=== PATIENT | male | born 1960 | race Caucasian/White ===

== ENCOUNTER 2019-08-03 15:30 | Inpatient (IN) | payer OTHER ==
[2019-08-03 16:12] LABS: #Basophils 0.1 thou/uL (0.0-0.2); #Eosinphils 0.5 thou/uL (0.0-0.7); #Lymphocytes 1.8 thou/uL (1.20-3.40); #Monocytes 1.1 thou/uL (0.11-0.59); #Neutrophils 6.3 thou/uL (1.40-6.50); %Basophils 0.7 % (0.0-1.0); %Eosinophils 4.9 % (0.0-10.0); %Lymphocytes 18.6 % (21.0-51.0); %Monocytes 10.9 % (0.0-10.0); %Neutrophils 64.8 % (42.0-75.0); Hemoglobin 10.5 g/dL (14.0-18.0); Mean Corpuscular HGB CONC 34.5 g/dL (32.0-36.0); Mean Corpuscular Hemoglobin 33.5 pg (27.0-31.0); Mean Corpuscular Volume 97.2 fL (78.0-98.0); Mean Platelet Volume 7.1 fL (7.4-10.4); Platelet Count 283 thou/uL (130-400); RBC Distribution Width 12.4 % (11.5-14.5); Red Blood Cell (RBC) Count 3.13 mill/uL (4.70-6.10); White Blood Cell (WBC) Count 9.8 thou/uL (4.8-10.8)
[2019-08-03 16:30] LABS: ALT (SGPT) 13 U/L (8-55); AST (SGOT) 17 U/L (5-34); Albumin 3.1 g/dL (3.5-5.0); Alkaline Phosphatase 53 U/L (40-110); Anion Gap 11 mmol/L (10-20); BUN (Urea Nitrogen) 46 mg/dL (8.4-25.7); Bilirubin, Total 0.3 mg/dL (0.2-1.2); Calc. Creatinine Clearance 0 mL/min (70-130); Calcium 8.4 mg/dL (7.8-10.44); Carbon Dioxide 25 mmol/L (22-29); Chloride 108 mmol/L (98-107); Estimated GFR-MDRD 28; Globulin 2.8 g/dL (2.4-3.5); Glucose 128 mg/dL (70-105); Potassium 4.8 mmol/L (3.5-5.1); Protein, Total 5.9 g/dL (6.0-8.3); Sodium 139 mmol/L (136-145)
--- NOTE | 2019-08-03 18:21 | RAD ---
PORTABLE CHEST ONE VIEW: 08/03/19 at 5:06 p.m. HISTORY: Difficulty breathing. FINDINGS/IMPRESSION: There are no previous exams for comparison. The heart size is borderline. There are bilateral pleural effusions with adjacent consolidation/atelectatic changes. No pneumothoraces are seen. POS: OFF
--- NOTE | 2019-08-03 18:54 | PDOC.FPRHP ---
- History of Present Illness Chief Complaint: Increasing swelling& shorness of breath History of Present Illness: Mr. Mansfield is a 59yo M w/ a PMH of DMII, HTN, and HLD who presents to the ED for evaluation of increasing swelling and shortness of breath since "the first of the year". He believes about 5 months. He states that these symptoms came on gradually. He endorses cough, orthopnea, PND, and MARIE. He was seen by Dr. Israel today who recommended he come to the ED for more emergent evaluation. Dr. Israel started seeing him for fluid overload in June and diagnosed him with diabetic nephropathy vs CKD III. He has been taking Lasix 40mg po daily at home, and despite this his swelling has not improved significantly. He has diabetic retinopathy / swelling in the eye and sees optho (Dr. Lau) for Avastin inj q month. He denies history of NH, stress tests or imaging on his heart in the past. Started insulin for his diabetes in February. Checks BG daily and it is usually 120s in the afternoon and <90 in the morning. - Allergies/Adverse Reactions Allergies Allergy/AdvReac Type Severity Reaction Status Date / Time No Known Allergies Allergy Verified 08/03/19 21:07 - Home Medications Medication Instructions Recorded Confirmed Type Amlodipine [Norvasc] 10 mg PO DAILY 08/03/19 08/03/19 History Atorvastatin Calcium 40 mg PO HS 08/03/19 08/03/19 History Fenofibrate 150 mg PO DAILY 08/03/19 08/03/19 History Fluticasone Propionate [Flovent 50 mcg IH DAILY 08/03/19 08/03/19 History Diskus] Furosemide 40 mg PO BID 08/03/19 08/03/19 History Insulin Glargine,Hum.Rec.Anlog 25 unit SQ QAM 08/03/19 08/03/19 History [Basaglar Kwikpen U-100] Potassium Chloride [K-Dur] 20 meq PO DAILY 08/03/19 08/03/19 History cloNIDine [Catapres] 0.2 mg PO TID 08/03/19 08/03/19 History metFORMIN [Glucophage] 500 mg PO BID-WM 08/03/19 08/03/19 History - History PMHx: HTN HLD DM II Diabetic nephropathy Stage III Chronic renal failure PSHx: Cholecystectomy FHx: Dad, age 59 from NH Mother, healthy, has dementia Social: Former tobacco user - smoked cigars. Quit last year. Denies alcohol or drug use. - Review of Systems General: reports: fatigue. denies: fever/chills, weight/appetite/sleep changes , night sweats Eyes: denies: eye pain, vision changes ENT: denies: nasal congestion, rhinorrhea Respiratory: reports: cough, congestion, shortness of breath, exercise intolerance Cardiovascular: reports: edema, paroxysmal nocturnal dyspnea, orthopnea. denies : chest pain, palpitation Gastrointestinal: denies: nausea, vomiting, diarrhea, constipation, abdominal pain Genitourinary: denies: incontinence, dysuria, polyuria Skin: denies: rashes, lesions, jaundice Musculoskeletal: denies: pain, tenderness, stiffness, swelling Neurological: reports: weakness. denies: numbness, syncope, seizure - Vital signs BP: 166/102, Pulse: 84, Resp: 20, Temp: 98.4 (Oral), Pain: 0, O2 sat: 98 on (2L Oxygen), Weight 90kg - Physical Exam Constitutional: NAD, awake, alert and oriented, well developed -Constitutional: Visibly short of breath HEENT: normocephalic and atraumatic, PERRLA, EOMI, conjunctiva clear, grossly normal vision, grossly normal hearing, MMM Neck: supple, trachea midline Heart: RRR, normal S1/S2, no murmurs/rubs/gallops -Heart: 1+ pitting edema diffusely (upper and lower extremities) Lungs: CTAB, no respiratory distress, good air movement, no rales/rhonchi, no wheezing Abdomen: soft, non-tender Musculoskeletal: normal structure, normal tone Neurological: no focal deficit FMR H&P: Results - Labs Result Diagrams: 08/03/19 16:02 08/04/19 05:24 Lab results: WBC 9.8 thou/uL (4.8-10.8) 08/03/19 16:02 Hgb 10.5 g/dL (14.0-18.0) L 08/03/19 16:02 Hct 30.4 % (42.0-52.0) L 08/03/19 16: MCV 97.2 fL (78.0-98.0) 08/03/19 16:02 Plt Count 283 thou/uL (130-400) 08/03/19 16:02 Neutrophils % 64.8 % (42.0-75.0) 08/03/19 16:02 Sodium 139 mmol/L (136-145) 08/03/19 16:02 Potassium 4.8 mmol/L (3.5-5.1) 08/03/19 16:02 Chloride 108 mmol/L (98-107) H 08/03/19 16:02 Carbon Dioxide 25 mmol/L (22-29) 08/03/19 16:02 BUN 46 mg/dL (8.4-25.7) H 08/03/19 16:02 Creatinine 2.42 mg/dL (0.7-1.3) H 08/03/19 16:02 Glucose 128 mg/dL (70-105) H 08/03/19 16:02 Calcium 8.4 mg/dL (7.8-10.44) 08/03/19 16:02 Total Bilirubin 0.3 mg/dL (0.2-1.2) 08/03/19 16:02 AST 17 U/L (5-34) 08/03/19 16:02 ALT 13 U/L (8-55) 08/03/19 16:02 Alkaline Phosphatase 53 U/L (40-110) 08/03/19 16:02 CK-MB (CK-2) 2.0 ng/mL (0-6.6) 08/03/19 16:02 B-Natriuretic Peptide 1049.1 pg/mL (0-100) H 08/03/19 16:02 Serum Total Protein 5.9 g/dL (6.0-8.3) L 08/03/19 16:02 Albumin 3.1 g/dL (3.5-5.0) L 08/03/19 16:02 - Radiology Interpretation Chest x-ray Status: report reviewed by me (There are no previous exams for comparison. The heart size is borderline. There are bilateral pleural effusions with adjacent consolidation/atelectatic changes. No pneumothoraces are seen.) FMR H&P: A/P - Problem List (1) Anasarca Current Visit: Yes Status: Acute Code(s): R60.1 - GENERALIZED EDEMA (2) Chronic kidney disease Current Visit: Yes Status: Chronic Code(s): N18.9 - CHRONIC KIDNEY DISEASE, UNSPECIFIED (3) Diabetic retinopathy Current Visit: Yes Status: Chronic Code(s): E11.319 - TYPE 2 DIABETES W UNSP DIABETIC RTNOP W/O MACULAR EDEMA (4) Diabetic nephropathy Current Visit: Yes Status: Chronic (5) Diabetes mellitus, type 2 Current Visit: Yes Status: Chronic (6) HTN (hypertension) Current Visit: Yes Status: Chronic Code(s): I10 - ESSENTIAL (PRIMARY) HYPERTENSION (7) HLD (hyperlipidemia) Current Visit: Yes Status: Chronic Code(s): E78.5 - HYPERLIPIDEMIA, UNSPECIFIED - Plan Anasarca, CKD III vs new onset CHF - BNP > 1000. Cr 2.42, uptrending over the last several months. - Trop 0.079 - ECHO ordered. - Strict I/O - Dr. Israel sent patient from clinic, consulted. Recommended 80mg IV Lasix BID and Albumin 25 q6h - Will monitor fluid status. DM II - Continue home insulin dose with sliding scale - A1c pending HTN - Continue home medication HLD - Continue home medications COVID PUI - Due to cough and shortness of breath swab obtained. - Symptoms likely more attributable to fluid status Anemia - Hb 10.2 - Iron studies, B12 and Folate ordered. Dispo: Stable, inpatient. Anticipate LOS > 48 hours for full work up and diuresis. Code: Full VTE: Heparin FMR H&P: Upper Level - Plan Date/Time: 08/03/19 1850 PCP: Abraham HPI: This is a 59 yo M who is being evaluated for fluid overload 2/2 CKDIII vs CHF. He has PMH including DM2, HTN, HLD. He was seeing Dr. Israel in clinic today and was sent to ER for treatment of the fluid overload. Patient states he has had increasing swelling since about February. Decreased exercise tolerance. Gets short of breath when laying down. He denies fever, although he did have a fever when they tested him in his hot car at the clinic. No documented fevers since that time. He complains of congestion on and off for a few month. Uses Flonase. PHYSICAL EXAMINATION: General: NAD, alert and oriented x3 HEENT: PERRLA, EOMI, normal sclera, oropharynx without erythema or exudate Neck: Supple. Full ROM. Heart/Cardiovascular System: RRR, Cap refill < 3 seconds, no rub, no murmur Lungs/Respiratory System: mild decreased breath sounds at bases, no resp distress Abdomen/Gastro-Intestinal System: no abdominal tenderness, normal bowel sounds Extremities: Warm extremities. +2 edema to the knees Neuro: No gross deficits appreciated. CN 2-12 grossly intact Psychiatry: Awake, Alert and cooperative with exam Skin: No lesions, rashes, or ulcers Musculoskeletal: Full ROM A/P: # Fluid overload CKDIII vs New onset CHF -Dr. Israel consulted, 80mg Lasix IV BID, Albumin, appreciate recs -Cr 2.42, BNP 1050 -Trop 0.079-> 0.098, suspect demand -Echo ordered -Strict I/O -Start HF medications as indicated once diuresis achieved # DM2, HTN, HLD -Home meds, A1C # COVID PUI -Low suspicion, COVID pending # Anemia - hgb 10.2, MCV 98, - iron studies, B12, folate - likely 2/2 CKD but will eval Fluids: tko Code: full PPx: heparin Dispo: inpatient Addendum - Attending - Attending Attestation Date/Time: 08/04/19 1123 I personally evaluated the patient and discussed the management with Dr. Day and Mauricio. I agree with the History, Examination, Assessment and Plan documented above with any addition or exceptions noted below.
[2019-08-03] MEDS ORDERED: HumaLOG 300 UNITS/3 ML VIAL SC PRN (19:49)
[2019-08-03] MEDS ORDERED: Dextrose 5% in Water 1,000 ML IV PRN (19:49)
[2019-08-03] MEDS ORDERED: Acetaminophen 325 MG TAB PO PRN (19:49)
[2019-08-03] MEDS ORDERED: Dextrose 50% Abboject 50 ML SYRINGE SLOW IVP PRN (19:49)
[2019-08-03] MEDS ORDERED: Albumin 25% 25 GM/100 ML BOT IVPB SCH (20:00)
[2019-08-03 20:14] LABS: Troponin I 0.098 ng/mL (< 0.028)
[2019-08-03] MEDS ORDERED: Furosemide 100 MG/10 ML VIAL SLOW IVP SCH (22:30)
[2019-08-03 22:40] LABS: Troponin I 0.089 ng/mL (< 0.028)
[2019-08-03] MEDS ORDERED: cloNIDine 0.2 MG TAB PO SCH (22:45)
[2019-08-03] MEDS ORDERED: metFORMIN 500 MG TAB PO SCH (22:45)
[2019-08-03] MEDS ORDERED: Atorvastatin Calcium 40 MG TAB PO SCH (22:45)
[2019-08-03] MEDS: Heparin 5,000 UNITS/ML VIAL SC SCH (22:53)
[2019-08-04 05:53] LABS: Anion Gap 11 mmol/L (10-20); BUN (Urea Nitrogen) 45 mg/dL (8.4-25.7); Calc. Creatinine Clearance 39 mL/min (70-130); Calcium 8.2 mg/dL (7.8-10.44); Carbon Dioxide 23 mmol/L (22-29); Chloride 108 mmol/L (98-107); Estimated GFR-MDRD 29; Glucose 120 mg/dL (70-105); Potassium 4.3 mmol/L (3.5-5.1); Sodium 138 mmol/L (136-145)
[2019-08-04] MEDS ORDERED: Furosemide 40 MG/4 ML VIAL SLOW IVP SCH (06:00)
[2019-08-04] MEDS: Albumin 25% 25 GM/100 ML BOT IVPB SCH ×4 (06:02→21:32)
[2019-08-04] MEDS: Furosemide 100 MG/10 ML VIAL SLOW IVP SCH ×2 (06:03→14:03)
[2019-08-04 06:12] LABS: Iron 47 ug/dL (65-175); Iron Binding Capacity, Total 246 mcg/dL (261-462); Phosphorus 4.2 mg/dL (2.3-4.7); Transferrin, Serum 197 mg/dL (174-364)
[2019-08-04 06:20] LABS: Ferritin 229.37 ng/mL (22-322)
--- NOTE | 2019-08-04 06:29 | PDOC.FM ---
- Subjective Subjective: Patient had no complaints this morning. He is voiding well. He reports his SOB is improved. He also reports the swelling in his upper legs has gone down. - Objective Vital Signs & Weight: Vital Signs (12 hours) Temp Pulse Resp BP BP Pulse Ox 08/04/19 03:55 96.4 F L 80 18 177/97 H 95 08/03/19 23:30 97.9 F 89 20 189/94 H 94 L 08/03/19 21:30 98.4 F 89 18 193/104 H 93 L 08/03/19 20:57 98.9 F 85 16 188/97 H 95 Weight Weight 94.211 kg Result Diagrams: 08/03/19 16:02 08/04/19 05:24 Phys Exam - Physical Examination Constitutional: NAD Respiratory: no wheezing, clear to auscultation bilateral Cardiovascular: RRR, no significant murmur Gastrointestinal: soft, non-tender 3+ pitting edema BLE up to kenes Neurological: non-focal, moves all 4 limbs Psychiatric: normal affect, A&O x 3 Skin: no rash, normal turgor Dx/Plan (1) Anasarca Code(s): R60.1 - GENERALIZED EDEMA Status: Acute (2) Chronic kidney disease Code(s): N18.9 - CHRONIC KIDNEY DISEASE, UNSPECIFIED Status: Chronic (3) Diabetes mellitus, type 2 Status: Chronic (4) Diabetic nephropathy Status: Chronic (5) Diabetic retinopathy Code(s): E11.319 - TYPE 2 DIABETES W UNSP DIABETIC RTNOP W/O MACULAR EDEMA Status: Chronic (6) HLD (hyperlipidemia) Code(s): E78.5 - HYPERLIPIDEMIA, UNSPECIFIED Status: Chronic (7) HTN (hypertension) Code(s): I10 - ESSENTIAL (PRIMARY) HYPERTENSION Status: Chronic (8) Person under investigation for COVID-19 Code(s): Z20.828 - CONTACT W AND EXPOSURE TO OTH VIRAL COMMUNICABLE DISEASES Status: Acute - Plan Plan: Anasarca Nephrotic syndrome CKD III Diabetic nephropathy - Strict I/Os and daily weights ordered - Dr. Israel, consulted, appreciate recs. Recommended 80mg IV Lasix BID and Albumin 25 q6h - Will monitor fluid status. Possible new onset CHF - BNP > 1000. Cr 2.42, uptrending over the last several months. - Trop downtrended - ECHO pending DM II - Continue home insulin dose with sliding scale - A1c 7.0 HTN - Continue home medication - PRN hydralazine for SBP >180 HLD - Continue home medications COVID PUI - Due to cough and shortness of breath swab obtained; pt also reportedly had fever at Dr. Israel's office when his forehead temperature was checked in a hot vehicle - Symptoms likely more attributable to fluid status Iron deficiency Anemia - Hb 10.2 - Iron showed low Fe, replacing today - B12 and Folate ordered. Dispo: Stable, inpatient. Anticipate LOS > 48 hours. Code: Full VTE: Heparin PCP: Abraham Day PGY2 Addendum - Attending - Attending Attestation Date/Time: 08/04/19 8630 I personally evaluated the patient and discussed the management with Dr. Day. I agree with the History, Examination, Assessment and Plan documented above with any addition or exceptions noted below. Patient feeling somewhat improved. Here for likely anasarca from nephrotic syndrome from diabetic nephropathy. Nephro on board. Continue albumin and Lasix. Echo pending. COVID swabbed and awaiting result though have very low suspicion for that diagnosis.
[2019-08-04] MEDS ORDERED: Mometasone 100 MCG/PUFF (1 INHALER) INH SCH (06:30)
[2019-08-04] MEDS: Heparin 5,000 UNITS/ML VIAL SC SCH ×3 (07:50→21:31)
[2019-08-04] MEDS: cloNIDine 0.2 MG TAB PO SCH ×3 (07:51→21:33)
[2019-08-04] MEDS: Fenofibrate Nanocrystallized 145 MG TAB PO SCH (07:51)
[2019-08-04] MEDS: Potassium Chloride 20 MEQ TAB PO SCH (07:51)
[2019-08-04] MEDS: Insulin Glargine 25 UNITS in Pre-Filled Syringe 1 EACH SC SCH (07:51)
[2019-08-04] MEDS: metFORMIN 500 MG TAB PO SCH ×2 (07:51→18:05)
[2019-08-04] MEDS: Amlodipine 10 MG TAB PO SCH (07:51)
[2019-08-04] MEDS ORDERED: Prevnar 13-Val Conj/PF 0.5 ML SYRINGE IM ONE (09:00)
[2019-08-04] MEDS ORDERED: Non-Formulary Item 1 EACH (Insulin Glargine,Hum.Rec.Anlog [Basaglar Kwikpen U-100] 25 UNI SQ SCH (09:00)
[2019-08-04] MEDS ORDERED: hydrALAZINE 20 MG/ML VIAL SLOW IVP PRN ×2 (09:06→17:13)
[2019-08-04] MEDS ORDERED: Ferrous Sulfate 325 MG TAB PO SCH (09:15)
--- NOTE | 2019-08-04 10:18 | CON ---
DATE OF CONSULTATION: HISTORY OF PRESENT ILLNESS: Mr. Mansfield is a 59-year-old white male with known history of chronic renal failure secondary to presumed diabetic nephropathy and was admitted for shortness of breath. He was yesterday seen at [facility]. At that time, he had a low-grade temperature. He is now admitted for further management of his CHF as well as low-grade fever. Chest x-ray is more suggestive of CHF. We are following up this patient for his acute kidney injury on top of his chronic renal failure as well as for anasarca. My feeling is that his anasarca is related to his nephrotic syndrome from his diabetic nephropathy. He is currently on IV diuretics as well as on an albumin infusion. He was seen in the [facility] about 2 to 3 weeks ago, at that time, he was attempted to be diuresed with p.o. diuretics. However, these did not significantly improve his anasarca and for that reason, he has been started on IV Lasix with albumin infusion. This morning, he is feeling better. His leg edema is much improved. His shortness of breath is also dramatically improved. REVIEW OF SYSTEMS: Positive for generalized edema. Positive for shortness of breath. Denies any fever at home, but had a low-grade temperature on exam yesterday. Appetite and energy levels are decreased. No nausea. No vomiting. No headache. No diplopia. No gross hematuria. No dysuria. No urinary frequency. No productive cough. Denies any home fever. No chills. No dysuria. No urinary frequency. CURRENT MEDICATIONS: Include; 1. Lasix 80 mg IV q.12. 2. Albumin 25 g IV q.6. 3. KCl 20 mEq q.a.m. 4. Glargine insulin 25 units subcu q.a.m. 5. Humalog sliding scale. 6. Ferrous sulfate 325 mg q.a.m. 7. Atorvastatin 40 mg at bedtime. 8. Albumin 25 g IV q.6. PAST MEDICAL HISTORY: 1. Type 2 diabetes mellitus of 20 plus years' duration. 2. Chronic renal failure from presumed diabetic nephropathy. 3. Hyperlipidemia. 4. Hypertension. 5. Recent diagnosis of anasarca. PAST SURGICAL HISTORY: Status post laparoscopic cholecystectomy. SOCIAL HISTORY: The patient lives in [place], 2 children. He is . 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 Education, high school. Smoked for 20 years, one cigar a day. No alcohol. No IV drug abuse. No blood transfusion. ALLERGIES: NONE. TRAUMA: None. IMMUNIZATIONS: Up-to-date. HOSPITALIZATIONS: Please see past medical history. FAMILY HISTORY: No family history of ESRD. Positive family history of diabetes mellitus. PHYSICAL EXAMINATION: VITAL SIGNS: Blood pressure 197/112, heart rate 84, respiratory rate 18, temperature 97.7, and O2 saturation 96%. GENERAL: The patient is awake, alert, comfortable, not in overt distress. SKIN: Adequate turgor. HEENT: He has pinkish conjunctivae. Anicteric sclerae. NECK: No neck mass. No carotid bruits. No JVD. CHEST: No deformities. LUNGS: Clear breath sounds. HEART: Normal sinus rhythm. No murmur. No gallops. No rubs. ABDOMEN: Globular, soft, and nontender. No masses. EXTREMITIES: Positive for edema. GENITALIA: Positive for scrotal edema. LABORATORY DATA: Laboratories of August 03, 2019; white count 9.8, hemoglobin 10.5. On August 04, 2019; sodium 138, potassium 4.3, chloride 108, carbon dioxide 23, BUN 45, creatinine 2.3, glucose 120, calcium 8.2. Iron 47, ferritin 229, vitamin B12 of 843, folate 9.9. On August 03, 2019; BUN 46, creatinine 2.42. On July 29, 2019; BUN 44, creatinine 2.73. BNP noted at 1049. Chest x-ray shows increased lung markings with bilateral pleural effusion. ASSESSMENT AND PLAN: 1. Anasarca - related to his nephrotic syndrome from diabetic nephropathy. We will at least also rule out possible hepatitis B and C with this patient. MERRILL as well as ANCA will also be ordered. In addition, a urine serum immunoelectrophoresis will also be ordered. 2. Agree with current IV diuretics. Continue Lasix 80 mg IV q.12. Continue albumin infusion at 25 g IV q.6. 3. Chronic renal failure secondary to diabetic nephropathy. There is no indication for any emergent hemodialysis. Renal function is relatively stable. Agree with current management. Recheck basic metabolic panel and CBC in a.m. Job ID: [id number]
[2019-08-04 14:02] LABS: SARS-CoV-2 MS2 Positive; SARS-CoV-2 N Gene Negative; SARS-CoV-2 S Gene Negative; SARS-CoV-2 orf1ab Negative
[2019-08-04] MEDS: HumaLOG 300 UNITS/3 ML VIAL SC PRN (18:11)
[2019-08-04] MEDS: Atorvastatin Calcium 40 MG TAB PO SCH (21:31)
[2019-08-05 05:31] LABS: #Basophils 0.1 thou/uL (0.0-0.2); #Eosinphils 0.4 thou/uL (0.0-0.7); #Lymphocytes 1.6 thou/uL (1.20-3.40); #Monocytes 0.7 thou/uL (0.11-0.59); #Neutrophils 4.6 thou/uL (1.40-6.50); %Basophils 0.8 % (0.0-1.0); %Eosinophils 5.1 % (0.0-10.0); %Lymphocytes 21.6 % (21.0-51.0); %Monocytes 9.2 % (0.0-10.0); %Neutrophils 63.3 % (42.0-75.0); Hemoglobin 9.7 g/dL (14.0-18.0); Mean Corpuscular HGB CONC 34.3 g/dL (32.0-36.0); Mean Corpuscular Hemoglobin 33.1 pg (27.0-31.0); Mean Corpuscular Volume 96.4 fL (78.0-98.0); Mean Platelet Volume 7.5 fL (7.4-10.4); Platelet Count 279 thou/uL (130-400); RBC Distribution Width 12.4 % (11.5-14.5); Red Blood Cell (RBC) Count 2.93 mill/uL (4.70-6.10); White Blood Cell (WBC) Count 7.2 thou/uL (4.8-10.8)
[2019-08-05] MEDS: Furosemide 100 MG/10 ML VIAL SLOW IVP SCH ×2 (05:32→14:10)
[2019-08-05] MEDS: Albumin 25% 25 GM/100 ML BOT IVPB SCH ×4 (05:32→20:42)
[2019-08-05 05:56] LABS: Anion Gap 13 mmol/L (10-20); BUN (Urea Nitrogen) 50 mg/dL (8.4-25.7); Calc. Creatinine Clearance 41 mL/min (70-130); Carbon Dioxide 26 mmol/L (22-29); Chloride 105 mmol/L (98-107); Estimated GFR-MDRD 26; Glucose 89 mg/dL (70-105); Potassium 4.1 mmol/L (3.5-5.1); Sodium 140 mmol/L (136-145)
[2019-08-05 06:10] LABS: HBSAg Index 0.16 S/CO (0-0.99); Hep B Surf Ag Non-Reactive S/CO (NonReactive); Hep C IgG Ab Non-Reactive (NonReactive); Hep C Index 0.14 S/CO (0-0.79)
--- NOTE | 2019-08-05 06:36 | PDOC.FM ---
- Subjective Subjective: Patient states he had some SOB on and off overnight, he has been voiding well. He reports his swelling is improved. He is on 2 L BNC this morning. He denies chest pain or palpitations. No other complaints this AM. No acute events overnight. NSR 70-80s overnight. - Objective Vital Signs & Weight: Vital Signs (12 hours) Temp Pulse Resp BP Pulse Ox 08/05/19 03:19 97.5 F L 81 18 173/95 H 92 L 08/04/19 21:25 98.3 F 84 18 162/93 H 92 L Weight Admit Weight 78.925 kg Weight 93.395 kg I&O: 08/03/19 08/04/19 08/05/19 06:59 06:59 06:59 Intake Total 590 1540 Output Total 1450 2825 Balance -860 -1285 Result Diagrams: 08/05/19 04:47 08/05/19 04:47 Phys Exam - Physical Examination Constitutional: NAD Diminished breath sounds bases bilateral, otherwise clear to auscultation Cardiovascular: RRR, no significant murmur Gastrointestinal: soft, non-tender Edema 2+ BUE, 2+ BLE Neurological: non-focal, moves all 4 limbs Psychiatric: normal affect, A&O x 3 Skin: no rash, cap refill <2 seconds Dx/Plan (1) Anasarca Code(s): R60.1 - GENERALIZED EDEMA Status: Acute (2) Chronic kidney disease Code(s): N18.9 - CHRONIC KIDNEY DISEASE, UNSPECIFIED Status: Chronic (3) Diabetes mellitus, type 2 Status: Chronic (4) Diabetic nephropathy Status: Chronic (5) Diabetic retinopathy Code(s): E11.319 - TYPE 2 DIABETES W UNSP DIABETIC RTNOP W/O MACULAR EDEMA Status: Chronic (6) HLD (hyperlipidemia) Code(s): E78.5 - HYPERLIPIDEMIA, UNSPECIFIED Status: Chronic (7) HTN (hypertension) Code(s): I10 - ESSENTIAL (PRIMARY) HYPERTENSION Status: Chronic (8) Person under investigation for COVID-19 Code(s): Z20.828 - CONTACT W AND EXPOSURE TO OTH VIRAL COMMUNICABLE DISEASES Status: Acute - Plan Plan: Anasarca 2/2 Nephrotic syndrome/Diabetic nephropathy, improved CKD3 - Creatinine trending upwards - Output -1.25 L yesterday, not all output caught - Dr. Israel, consulted -Recommended 80mg IV Lasix BID and Albumin 25 q6h -Hep B & C, ANCA and MERRILL ordered along with electrophoresis - Continue to diurese. Possible new onset CHF - ECHO still pending DM II - Continue home insulin dose with sliding scale - A1c 7.0 HTN - Continue home medication - PRN hydralazine for SBP >180 HLD - Continue home medications COVID ruled out Iron deficiency Anemia - Continue Fe replacement Dispo: Stable, inpatient. Anticipate LOS > 48 hours. Appreciate nephrology recommendations. Code: Full VTE: Heparin PCP: Abraham Day PGY2 Addendum - Attending - Attending Attestation Date/Time: 08/05/19 1213 I personally evaluated the patient and discussed the management with Dr. Jordi Day. I agree with the History, Examination, Assessment and Plan documented above with any addition or exceptions noted below. Patient stable, continue diuresis and monitoring of renal function. Nephro on board and awaiting further recs.
[2019-08-05] MEDS: Insulin Glargine 25 UNITS in Pre-Filled Syringe 1 EACH SC SCH (08:30)
[2019-08-05] MEDS: Ferrous Sulfate 325 MG TAB PO SCH (08:33)
[2019-08-05] MEDS: cloNIDine 0.2 MG TAB PO SCH ×3 (08:33→20:42)
[2019-08-05] MEDS: metFORMIN 500 MG TAB PO SCH ×2 (08:33→17:36)
[2019-08-05] MEDS: Potassium Chloride 20 MEQ TAB PO SCH (08:33)
[2019-08-05] MEDS: Amlodipine 10 MG TAB PO SCH (08:33)
[2019-08-05] MEDS: Fenofibrate Nanocrystallized 145 MG TAB PO SCH (08:34)
[2019-08-05] MEDS: Heparin 5,000 UNITS/ML VIAL SC SCH ×3 (08:34→20:42)
--- NOTE | 2019-08-05 09:08 | PRG ---
DATE OF SERVICE: 08/05/2019 SUBJECTIVE: Mr. Mansfield is a 59-year-old white male, who was admitted for anasarca/CHF. He has been started on diuretics as well as an albumin infusion. We are following up this patient for his chronic renal failure from diabetic nephropathy. He has a history of nephrotic syndrome secondary to a most likely diabetic nephropathy. Other etiologies are also being ruled out. He had some mild shortness of breath last night. This morning, he is feeling better. No chest pain or shortness of breath. OBJECTIVE: VITAL SIGNS: Blood pressure is 187/102-before BP medications, heart rate 86, respiratory rate 20, temperature 97.7, and O2 saturation is 93%. GENERAL: Noted to be awake, alert, comfortable, not in distress. SKIN: Adequate turgor. HEENT: Pinkish conjunctivae. Anicteric sclerae. No neck mass. No carotid bruits. No JVD. CHEST: No deformities. LUNGS: Decreased breath sounds. HEART: Normal sinus rhythm. No murmur. No gallops. No rubs. ABDOMEN: Globular, soft, nontender. No masses. Positive for mild ascites. EXTREMITIES: Trace edema. MEDICATIONS: Medications of August 05, 2019, reviewed. LABORATORY DATA: Laboratories of August 05, 2019: White count 7.2, hemoglobin 9.7, hematocrit 28.3, and platelet count 279,000. Sodium 140, potassium 4.1, chloride 105, carbon dioxide 26, BUN 50, creatinine 2.54, GFR 26 mL/min, calcium 9.0. COVID not detected. Hepatitis B surface antigen negative. Hepatitis C antibody negative. MERRILL, ANCA, immunoelectrophoresis are still currently pending. ASSESSMENT AND PLAN: 1. Chronic renal failure from diabetic nephropathy. Creatinine noted higher at 2.54 and yesterday, this was 2.3. This could be a reflection of the current diuretic regimen. My plan is simply to observe it. We will leave the current dose of Lasix at 80 mg IV q.12. I will continue the albumin infusion to protect the kidney and to enhance his diuresis. The patient still has some significant volume overload. 2. Anasarca/nephrotic syndrome. Continue IV Lasix 80 mg IV q.12. Continue to monitor renal function. 3. Please note, there is no indication for any dialytic intervention with this patient. He does have a mild anemia, which we will continue to observe. CBC and basic metabolics will be checked tomorrow. Continue albumin 25 g IV q.6. Job ID: [id number]
[2019-08-05] MEDS: Fluticasone Propionate Nasal Spray 16 gm Bottle NASAL SCH (11:47)
[2019-08-05] MEDS ORDERED: hydrOXYzine 25 MG TAB PO SCH (14:00)
[2019-08-05] MEDS ORDERED: hydrALAZINE 20 MG/ML VIAL SLOW IVP SCH (14:00)
[2019-08-05 14:25] LABS: Troponin I 0.055 ng/mL (< 0.028)
[2019-08-05] MEDS ORDERED: Metolazone 5 MG TAB PO SCH (14:30)
--- NOTE | 2019-08-05 14:55 | PDOC.BPN ---
- Brief Progress Note While nurse was trying to wean O2 today around 1300, patient reported SOB. Went to bedside, patient was sitting up leaning over. Reported upper abdominal pressure, and SOB that worsened with lying back in bed. Cardiac: RRR, no murmur. Lungs: BCTA with decreased breath sounds at the bases. Trop, EKG, and CXR ordered. CXR revealed increased pulmonary vascular congestion. EKG NSR with non specific ST changes. Spoke with Dr. Israel about fluid overload. Patient was given previously scheduled lasix at 1400. Next dose of albumin to be held. Adding a 1x dose of metolazone 5 mg. Patient was given hydralazine for SBP >180 and hydroxyzine for anxiety. Will continue to monitor.
--- NOTE | 2019-08-05 15:11 | RAD ---
PORTABLE CHEST: 08/05/19 HISTORY: Dyspnea. COMPARISON: 08/03/19. Poor inspiration. Vascular and interstitial prominence bilaterally. Hazy ground glass infiltrates in both lower lungs could represent edema or inflammatory process. There are bilateral effusions again n oted which would produce bibasilar atelectasis. IMPRESSION: Vascular and interstitial congestion appears slightly more prominent today. There are bibasilar infil trates and atelectasis again noted with bilateral effusions. POS: AH
--- NOTE | 2019-08-05 15:53 | EKG ---
Test Reason : Blood Pressure : / mmHG Vent. Rate : 098 BPM Atrial Rate : 098 BPM P-R Int : 174 ms QRS Dur : 090 ms QT Int : 384 ms P-R-T Axes : 061 058 252 degrees QTc Int : 490 ms Normal sinus rhythm Nonspecific T wave abnormality Prolonged QT Abnormal ECG Confirmed by ALEXANDER FRANCES ([id number]) on 08/05/2019 3:52:39 PM Referred By: JEAN *r Confirmed By:ALEXANDER FRANCES
[2019-08-05] MEDS: Atorvastatin Calcium 40 MG TAB PO SCH (20:42)
[2019-08-06] MEDS: Albumin 25% 25 GM/100 ML BOT IVPB SCH (03:49)
[2019-08-06 04:47] LABS: #Basophils 0.1 thou/uL (0.0-0.2); #Eosinphils 0.3 thou/uL (0.0-0.7); #Lymphocytes 1.4 thou/uL (1.20-3.40); #Monocytes 0.8 thou/uL (0.11-0.59); #Neutrophils 4.4 thou/uL (1.40-6.50); %Basophils 0.9 % (0.0-1.0); %Eosinophils 3.8 % (0.0-10.0); %Lymphocytes 19.7 % (21.0-51.0); %Monocytes 11.5 % (0.0-10.0); %Neutrophils 64.1 % (42.0-75.0); Hemoglobin 9.8 g/dL (14.0-18.0); Mean Corpuscular HGB CONC 33.2 g/dL (32.0-36.0); Mean Corpuscular Volume 96.4 fL (78.0-98.0); Mean Platelet Volume 7.5 fL (7.4-10.4); Platelet Count 269 thou/uL (130-400); RBC Distribution Width 12.5 % (11.5-14.5); Red Blood Cell (RBC) Count 3.07 mill/uL (4.70-6.10); White Blood Cell (WBC) Count 6.9 thou/uL (4.8-10.8)
[2019-08-06 04:56] LABS: Anion Gap 13 mmol/L (10-20); BUN (Urea Nitrogen) 48 mg/dL (8.4-25.7); Calc. Creatinine Clearance 38 mL/min (70-130); Calcium 9.1 mg/dL (7.8-10.44); Carbon Dioxide 26 mmol/L (22-29); Chloride 105 mmol/L (98-107); Estimated GFR-MDRD 24; Glucose 65 mg/dL (70-105); Potassium 3.8 mmol/L (3.5-5.1); Sodium 140 mmol/L (136-145)
[2019-08-06] MEDS: Furosemide 100 MG/10 ML VIAL SLOW IVP SCH (05:47)
--- NOTE | 2019-08-06 06:55 | PDOC.FM ---
- Subjective Subjective: Patient is resting comfortable in bed this morning. He reports his SOB is much improved. We held one dose of albumin yesterday, and he refused his next dose of albumin. He denies chest pain. - Objective Vital Signs & Weight: Vital Signs (12 hours) Temp Pulse Resp BP Pulse Ox 08/06/19 04:19 98.1 F 87 18 176/95 H 94 L 08/05/19 19:40 98.0 F 87 18 173/94 H 94 L Weight Admit Weight 78.925 kg Weight 90.832 kg I&O: 08/04/19 08/05/19 08/06/19 06:59 06:59 06:59 Intake Total 590 1540 1000 Output Total 1450 2825 1550 Balance -860 -9343 -550 Result Diagrams: 08/06/19 04:17 08/06/19 04:17 Phys Exam - Physical Examination Constitutional: NAD Respiratory: no rhonchi crackles LLL, Clear to auscultation on right lung; no wheezing Cardiovascular: RRR, no significant murmur Gastrointestinal: soft, non-tender, positive bowel sounds 2+ edema BLE, 1+ BUE. Improved Neurological: non-focal, moves all 4 limbs Psychiatric: normal affect Skin: no rash, cap refill <2 seconds Dx/Plan (1) Anasarca Code(s): R60.1 - GENERALIZED EDEMA Status: Acute (2) Chronic kidney disease Code(s): N18.9 - CHRONIC KIDNEY DISEASE, UNSPECIFIED Status: Chronic (3) Diabetes mellitus, type 2 Status: Chronic (4) Diabetic nephropathy Status: Chronic (5) Diabetic retinopathy Code(s): E11.319 - TYPE 2 DIABETES W UNSP DIABETIC RTNOP W/O MACULAR EDEMA Status: Chronic (6) HLD (hyperlipidemia) Code(s): E78.5 - HYPERLIPIDEMIA, UNSPECIFIED Status: Chronic (7) HTN (hypertension) Code(s): I10 - ESSENTIAL (PRIMARY) HYPERTENSION Status: Chronic (8) Person under investigation for COVID-19 Code(s): Z20.828 - CONTACT W AND EXPOSURE TO OTH VIRAL COMMUNICABLE DISEASES Status: Acute (9) Heart failure Code(s): I50.9 - HEART FAILURE, UNSPECIFIED Status: Acute - Plan Plan: New onset CHF - ECHO- EF 30-35%, Grade 2/3 diastolic dysfunction - Consult cardiology today, appreciate recommendations - Heart failure clinic - Start BB Anasarca 2/2 Nephrotic syndrome/Diabetic nephropathy CKD3 - Creatinine continues to trend upwards - Dr. Israel, consulted -Recommended 80mg IV Lasix BID and Albumin 25 q6h -Hep B & C, ANCA and MERRILL ordered along with electrophoresis - Yesterday gave 1 dose metolazone and held albumin x1 (patient refused dose x1 afterwards) due to fluid overload DM II - Continue home insulin dose with sliding scale - A1c 7.0 HTN - Continue home medication - Start BB - PRN hydralazine for SBP >180 HLD - Continue home medications COVID ruled out Iron deficiency Anemia - Continue Fe replacement Dispo: Stable, inpatient. Anticipate LOS > 48 hours. Appreciate nephrology and cardiology recommendations. Code: Full VTE: Heparin PCP: Abraham Day PGY2 Addendum - Attending - Attending Attestation Date/Time: 08/06/19 [id number] I personally evaluated the patient and discussed the management with Dr. Day. I agree with the History, Examination, Assessment and Plan documented above with any addition or exceptions noted below. Continue diuresis and albumin per nephro. Needs cardiology as new diagnosis of sCHF. Continue to get excess fluid off his extremities.
[2019-08-06] MEDS: cloNIDine 0.2 MG TAB PO SCH ×3 (08:40→20:34)
[2019-08-06] MEDS: Fenofibrate Nanocrystallized 145 MG TAB PO SCH (08:40)
[2019-08-06] MEDS: Ferrous Sulfate 325 MG TAB PO SCH (08:40)
[2019-08-06] MEDS: Heparin 5,000 UNITS/ML VIAL SC SCH ×3 (08:40→20:35)
[2019-08-06] MEDS: Potassium Chloride 20 MEQ TAB PO SCH (08:41)
[2019-08-06] MEDS: Amlodipine 10 MG TAB PO SCH (08:41)
[2019-08-06] MEDS: Insulin Glargine 25 UNITS in Pre-Filled Syringe 1 EACH SC SCH (08:41)
[2019-08-06] MEDS: metFORMIN 500 MG TAB PO SCH (08:41)
[2019-08-06] MEDS: Fluticasone Propionate Nasal Spray 16 gm Bottle NASAL SCH (08:44)
--- NOTE | 2019-08-06 09:56 | PRG ---
DATE OF SERVICE: 08/06/2019 SUBJECTIVE: Mr. Mansfield is a 59-year-old white male, who was admitted for anasarca/chronic renal failure. He has underlying nephrotic syndrome from his diabetic nephropathy. He has been diuresed. Yesterday, the albumin was stopped due to complaints of shortness of breath. He continues to receive Lasix 80 mg IV q.12 and was given a one time dose of metolazone. This morning, he is feeling better. His scrotal swelling has resolved. His generalized edema is also much improved. He voices no new complaints today. OBJECTIVE: VITAL SIGNS: Blood pressure 182/99, heart rate 85, respiratory rate 20, temperature 98, and pulse ox 94%. GENERAL: The patient is awake, alert, and comfortable, not in distress. SKIN: Adequate turgor. HEENT: He has pinkish conjunctivae. Anicteric sclerae. NECK: No neck mass. No carotid bruits. No JVD. CHEST: No deformities. LUNGS: Clear breath sounds. No wheezing. No crackles. HEART: Normal sinus rhythm. No murmur. No gallops. No rubs. ABDOMEN: Globular, soft, and nontender. No masses. EXTREMITIES: Trace edema. No deformities. GENITALIA: No scrotal swelling. MEDICATIONS: Medications of August 06, 2019, reviewed. LABORATORY DATA: Laboratories of August 06, 2019; white count 6.9, hemoglobin 9.8, hematocrit 29.6. Hepatitis B surface antigen negative. Hepatitis C antibody negative. ANCA and MERRILL are currently pending. ASSESSMENT AND PLAN: 1. Anasarca-the patient has nephrotic syndrome secondary to a diabetic nephropathy. Serologies are pending, but he ruled out for hepatitis B and C. Continue current management. Due to the much improved anasarca, we will decrease Lasix to 40 mg tablet b.i.d. 2. Chronic renal failure from diabetic nephropathy, slightly higher creatinine of 2.73. This to be anticipated with current diuretic regimen. We will adjust Lasix to 40 mg tablet b.i.d. There is no indication for any dialytic intervention with this patient. Please note, hemoglobin is noted at 9.8, which is stable. We will recheck basic met and CBC in a.m. Job ID: [id number]
[2019-08-06] MEDS ORDERED: Carvedilol 3.125 MG TAB PO SCH (10:15)
[2019-08-06] MEDS ORDERED: Isosorbide Dinitrate 20 MG TAB PO SCH (10:30)
[2019-08-06] MEDS ORDERED: hydrALAZINE 25 MG TAB PO SCH (10:30)
[2019-08-06] MEDS ORDERED: Aspirin 81 mg Enteric Coated Tablet PO SCH (10:30)
[2019-08-06 13:24] LABS: ANA Symphony (Qualitative) Negative (Negative); ANA Symphony (Quantitative) 0.2 Ratio (< 0.7 Negative); dsDNA IgG Antibody Less than 0.5 IU/mL (<10 Negative)
[2019-08-06] MEDS ORDERED: Furosemide 40 MG TAB PO SCH (14:00)
[2019-08-06] MEDS: hydrALAZINE 25 MG TAB PO SCH ×2 (15:01→20:34)
[2019-08-06] MEDS: Isosorbide Dinitrate 20 MG TAB PO SCH ×2 (15:02→20:34)
--- NOTE | 2019-08-06 16:11 | CON ---
DATE OF CONSULTATION: HISTORY OF PRESENT ILLNESS: The patient is a pleasant 59-year-old gentleman, who presents for evaluation of increasing dyspnea. The patient states approximately 6 months ago, he started noticing having increasing dyspnea with mild exertion. He subsequently developed lower extremity swelling. He was found to have evidence of renal insufficiency and was undergoing evaluation when he developed worsening shortness of breath. The patient also reports having PND, orthopnea. The patient denies having any chest discomfort. PAST MEDICAL HISTORY: 1. Diabetes mellitus. 2. Hypertension. 3. Dyslipidemia. 4. Renal insufficiency. PAST SURGICAL HISTORY: Cholecystectomy. SOCIAL HISTORY: He smokes cigars. FAMILY HISTORY: Positive family history of coronary artery disease. ALLERGIES: NO KNOWN DRUG ALLERGIES. REVIEW OF SYSTEMS: Ten-point system otherwise unremarkable. PHYSICAL EXAMINATION: GENERAL: This is a middle-aged gentleman, in no acute distress. VITAL SIGNS: Blood pressure 182/99. NECK: Full. No carotid bruits. LUNGS: Few crackles in both bases. HEART: Regular rate and rhythm. Normal S1 and S2. ABDOMEN: Distended. EXTREMITIES: Show moderate bilateral edema. LABORATORY DATA: Sodium is 140, potassium 3.8, chloride 105, bicarbonate 26, BUN 48, creatinine 0.27, glucose is 65. White blood cell count is 6.9, hemoglobin 9.8, hematocrit 29.3, platelets 269. Troponin was 0.055. DIAGNOSTIC STUDIES: EKG revealed normal sinus rhythm with a nonspecific ST abnormality. IMPRESSION: 1. Congestive heart failure. 2. Cardiomyopathy. 3. Renal failure. 4. Diabetes mellitus. 5. Hypertension. 6. Dyslipidemia. This is an unfortunate gentleman, presents with a new onset cardiomyopathy. He will probably need to be placed on dobutamine to diurese appropriately. The patient's blood pressure is markedly elevated. At this time, we will start afterload reduction with hydralazine and Isordil. We will discontinue Norvasc, which is contraindicated in patients with cardiomyopathy. We will follow this patient with you through his hospitalization. Job ID: [id number] [facility]
[2019-08-06] MEDS: Carvedilol 3.125 MG TAB PO SCH (16:18)
[2019-08-06] MEDS: Atorvastatin Calcium 40 MG TAB PO SCH (20:34)
--- NOTE | 2019-08-06 21:08 | CON ---
DATE OF CONSULTATION: 08/06/2019 HISTORY OF PRESENT ILLNESS: Kenji Mansfield is a 59-year-old gentleman who has been in the hospital since the . Today is 08/06/2019 and consulted regarding a large pleural effusion, possibly thoracentesis. The patient states that he is feeling better today, apparently less short of breath. His echocardiogram shows that his EF is 30%. His primary care doctor admitted to the hospital with shortness of breath, marked lower extremity swelling going for the last 4 to 5 months. Three months ago, he could walk a block and now he can barely walk 100 feet without getting markedly short of breath. Denies fevers, chills, or chest pain. PAST MEDICAL HISTORY: Diabetes, hypertension, renal failure, hyperlipidemia. PREVIOUS SURGERIES: Gallbladder. SOCIAL HISTORY: Tobacco, he is still smoking. He is planning to quit. Alcohol, none. MEDICATIONS: 1. Flonase. 2. Atorvastatin 40. 3. Metformin 500 twice a day. 4. Catapres 0.2 three times a day. 5. Potassium. 6. Insulin. 7. Lasix. 8. Amlodipine 10. ALLERGIES: NONE. SOCIAL AND FAMILY HISTORY: Unremarkable. REVIEW OF SYSTEMS: Otherwise, 10-point negative. PHYSICAL EXAMINATION: VITAL SIGNS: Temperature 98, pulse 82, saturations 90% on room air, respirations 20, blood pressure 136/92. EXTREMITIES: Ankle edema. CHEST: Decreased breath sounds bilaterally half way of the chest. There is no wheezing. CARDIAC: Normal S1 and S2. No gallops. ABDOMEN: No masses. LABORATORY DATA: Creatinine 2.73, BUN is 48, sodium 140. White count 6000, H and H are 9 and 28, platelet 269. X-ray shows bilateral pleural effusion half way of the chest bilaterally. ASSESSMENT: 1. Pleural effusion bilaterally secondary to congestive heart failure. The patient is likely asymptomatic. 2. Tobacco abuse. 3. Diabetes. 4. Renal failure. Since he is likely asymptomatic, I would hold off any thoracentesis. The patient was told and notified that if his dyspnea does not improve, otherwise, continue aggressive cardiac care. We will follow. Job ID: [id number]
[2019-08-07 03:58] LABS: #Basophils 0.1 thou/uL (0.0-0.2); #Eosinphils 0.4 thou/uL (0.0-0.7); #Lymphocytes 1.8 thou/uL (1.20-3.40); #Monocytes 0.9 thou/uL (0.11-0.59); #Neutrophils 4.3 thou/uL (1.40-6.50); %Lymphocytes 23.9 % (21.0-51.0); %Monocytes 11.7 % (0.0-10.0); %Neutrophils 58.5 % (42.0-75.0); Hemoglobin 9.2 g/dL (14.0-18.0); Mean Corpuscular HGB CONC 34.4 g/dL (32.0-36.0); Mean Corpuscular Hemoglobin 33.3 pg (27.0-31.0); Mean Corpuscular Volume 96.6 fL (78.0-98.0); Mean Platelet Volume 7.3 fL (7.4-10.4); Platelet Count 234 thou/uL (130-400); RBC Distribution Width 12.5 % (11.5-14.5); Red Blood Cell (RBC) Count 2.77 mill/uL (4.70-6.10); White Blood Cell (WBC) Count 7.4 thou/uL (4.8-10.8)
[2019-08-07 04:23] LABS: Anion Gap 13 mmol/L (10-20); BUN (Urea Nitrogen) 48 mg/dL (8.4-25.7); Calc. Creatinine Clearance 33 mL/min (70-130); Calcium 8.6 mg/dL (7.8-10.44); Carbon Dioxide 26 mmol/L (22-29); Cardiac Risk 2.6 (Less than 4.5); Chloride 103 mmol/L (98-107); Cholesterol 70 mg/dl (< 200 Desired); Estimated GFR-MDRD 21; HDL Cholesterol 27 mg/dL (>60 Neg Risk); LDL Cholesterol, Calculated 30 mg/dL; Sodium 138 mmol/L (136-145); Triglycerides 64 mg/dL (Less than 150)
[2019-08-07 04:33] LABS: Glucose 54 mg/dL (70-105)
--- NOTE | 2019-08-07 06:28 | PDOC.FM ---
- Subjective Subjective: Patient reports his swelling is much improved this admission. Denies chest pain or SOB. Voiding and stooling well. Per nursing he has had low blood sugars most of yesterday, and glucose in the 50s this morning. - Objective Vital Signs & Weight: Vital Signs (12 hours) Temp Pulse Resp BP Pulse Ox 08/07/19 04:18 97.9 F 80 18 157/85 H 94 L 08/06/19 19:20 98.8 F 79 16 132/74 92 L Weight Admit Weight 78.925 kg Weight 87.26 kg I&O: 08/05/19 08/06/19 08/07/19 06:59 06:59 06:59 Intake Total 1540 1000 840 Output Total 2825 1550 1600 Balance -1285 -550 -760 Result Diagrams: 08/07/19 03:45 08/07/19 03:44 Phys Exam - Physical Examination Constitutional: NAD Respiratory: no wheezing, clear to auscultation bilateral Cardiovascular: RRR, no significant murmur Gastrointestinal: soft, non-tender, no distention Musculoskeletal: pulses present 1+ edema all extremities Neurological: non-focal, moves all 4 limbs Psychiatric: normal affect, A&O x 3 Skin: normal turgor, cap refill <2 seconds Dx/Plan (1) Congestive heart failure (CHF) Code(s): I50.9 - HEART FAILURE, UNSPECIFIED Status: Acute (2) Anasarca Code(s): R60.1 - GENERALIZED EDEMA Status: Acute (3) Chronic kidney disease Code(s): N18.9 - CHRONIC KIDNEY DISEASE, UNSPECIFIED Status: Chronic (4) Diabetes mellitus, type 2 Status: Chronic (5) Diabetic nephropathy Status: Chronic (6) Diabetic retinopathy Code(s): E11.319 - TYPE 2 DIABETES W UNSP DIABETIC RTNOP W/O MACULAR EDEMA Status: Chronic (7) HLD (hyperlipidemia) Code(s): E78.5 - HYPERLIPIDEMIA, UNSPECIFIED Status: Chronic (8) HTN (hypertension) Code(s): I10 - ESSENTIAL (PRIMARY) HYPERTENSION Status: Chronic (9) Person under investigation for COVID-19 Code(s): Z20.828 - CONTACT W AND EXPOSURE TO OTH VIRAL COMMUNICABLE DISEASES Status: Acute (10) Heart failure Code(s): I50.9 - HEART FAILURE, UNSPECIFIED Status: Acute - Plan Plan: Anasarca 2/2 Nephrotic syndrome 2/2 Diabetic nephropathy, improving Cardiorenal Syndrome - Creatinine continues to trend upwards, 3.06 today - Dr. Israel, consulted -Lasix decreased to 40 PO BID yesterday; albumin DCed -Hep B & C neg, MERRILL neg -ANCA and urine electrophoresis pending New onset, mixed CHF - ECHO- EF 30-35%, Grade 2/3 diastolic dysfunction - Cardiology Dr. Lee consulted along with heart failure clinic - Stop amlodipine. Started coreg, isordil, hydralazine - Per nursing, lee goal of BP 120s, then hopes to start dobutamine for help with diureses - Continue ASA and statin Pleural effusion - Pulm Dr. Duarte consulted for pleural effusion, recommend no intervention due to asx at this time DM II - Decreased home insulin dose to 20 u QD from 25 u QD due to low blood sugars. As stopping metformin, this may need to be increased again tomorrow - Stop metformin 2/2 CKD - A1c 7.0 HTN - Amlodipine stopped 2/2 HFrEF - Started coreg, hydralazine, isordil - PRN hydralazine for SBP >180 - Goal of Lee per nursing as above under "New Onset CHF" HLD - Continue home medications COVID ruled out Iron deficiency Anemia - Continue Fe replacement Dispo: Stable, inpatient. Kidney function continues to worsen. Medications started for CHF/HTN. Appreciate nephrology and cardiology recommendations. Anticipate LOS > 48 hours. Code: Full VTE: Heparin PCP: Abraham Day PGY2 Addendum - Attending - Attending Attestation Date/Time: 08/07/19 1257 I personally evaluated the patient and discussed the management with Dr. Jordi Day. I agree with the History, Examination, Assessment and Plan documented above with any addition or exceptions noted below.
--- NOTE | 2019-08-07 08:57 | PRG ---
DATE OF SERVICE: 08/07/2019 SUBJECTIVE: Mr. Mansfield is a 59-year-old white male with chronic renal failure from diabetic nephropathy, type 2 diabetes mellitus, and admitted for anasarca. He was aggressively diuresed. Albumin infusion was also given, but was discontinued due to complaints of shortness of breath with this. He anasarca is much improved. He also had a cardiac evaluation and is now being seen by car oiler. He had an ejection fraction noted at 30% to 35%. Recommendations by Cardiology was made. He has been started on carvedilol as well as on hydralazine and isosorbide. He has no new complaints today. No chest pain or shortness of breath. During this hospitalization, creatinine was noted to have worsened. This probably is a reflection of his current CHF as well as diuretic regimen. Lasix has been adjusted yesterday to 40 mg tablet b.i.d. OBJECTIVE: VITAL SIGNS: Blood pressure is 166/90, heart rate 84, respiratory rate 20 temperature 98.4, and pulse ox 91% on room air. GENERAL: The patient is awake, alert, comfortable, not in overt distress. SKIN: Adequate turgor. HEENT: Slightly pale conjunctivae. Anicteric sclerae. NECK: No neck mass. No carotid bruits. No JVD. CHEST: No deformities. LUNGS: Decreased breath sounds. HEART: Normal sinus rhythm. No murmurs. No gallops. No rubs. ABDOMEN: Globular, soft, and nontender. No masses. EXTREMITIES: Trace edema. MEDICATIONS: Medications of August 07, 2019, were reviewed. LABORATORY DATA: Laboratories of August 07, 2019; white count 7.4, hemoglobin 9.2. Sodium 138, potassium 4, chloride 103, carbon dioxide 26, BUN 48, creatinine 3.06, and calcium 8.6. Hepatitis B surface antigen and hepatitis C negative. COVID-19, not detected. MERRILL is negative. ANCA pending. ASSESSMENT AND PLAN: 1. Anasarca - most likely related to underlying nephrotic syndrome from his diabetic nephropathy. Continue to diurese. We will leave current dose of Lasix at 40 mg tablet b.i.d. 2. Chronic renal failure secondary to diabetic nephropathy - continue to observe. Creatinine slightly higher. No changes will be made with the diuretic regimen and we will recheck the basic metabolic panel again tomorrow. 3. Congestive heart failure/decreased ejection fraction. Cardiology has evaluated the patient. Recommendations have been made. 4. Borderline anemia. We will observe. 5. Thrombocytopenia. Continue to observe. We will recheck CBC and basic metabolic panel in a.m. Job ID: [id number]
[2019-08-07] MEDS ORDERED: Insulin Glargine 20 UNITS in Pre-Filled Syringe 1 EACH SC SCH (09:00)
[2019-08-07] MEDS: Carvedilol 3.125 MG TAB PO SCH (09:19)
[2019-08-07] MEDS: Potassium Chloride 20 MEQ TAB PO SCH (09:20)
[2019-08-07] MEDS: Ferrous Sulfate 325 MG TAB PO SCH (09:20)
[2019-08-07] MEDS: Aspirin 81 mg Enteric Coated Tablet PO SCH (09:20)
[2019-08-07] MEDS: Fenofibrate Nanocrystallized 145 MG TAB PO SCH (09:20)
[2019-08-07] MEDS: Isosorbide Dinitrate 20 MG TAB PO SCH ×3 (09:20→20:17)
[2019-08-07] MEDS: cloNIDine 0.2 MG TAB PO SCH ×3 (09:21→20:17)
[2019-08-07] MEDS: hydrALAZINE 25 MG TAB PO SCH ×3 (09:21→20:17)
[2019-08-07] MEDS: Heparin 5,000 UNITS/ML VIAL SC SCH ×3 (09:21→20:17)
[2019-08-07] MEDS: Furosemide 40 MG TAB PO SCH ×2 (09:21→15:33)
[2019-08-07] MEDS: Fluticasone Propionate Nasal Spray 16 gm Bottle NASAL SCH (09:48)
[2019-08-07 11:17] LABS: HBSAg Index 0.23 S/CO (0-0.99); HIV (1/2) Antibody/Antigen Non-Reactive (NonReactive); HIV 1/2 INDEX 0.16 S/CO (<1.00); Hep B Surf Ag Non-Reactive S/CO (NonReactive); Hep C IgG Ab Non-Reactive (NonReactive); Hep C Index 0.13 S/CO (0-0.79)
--- NOTE | 2019-08-07 12:16 | PRG ---
DATE OF SERVICE: 08/07/2019 SUBJECTIVE: This morning, he is doing better. Less short of breath. OBJECTIVE: VITAL SIGNS: His sats are 91% on room air, respiratory rate 18, temperature 98, pulse rate 84, and blood pressure 160/84. CHEST: Decreased breath sounds bilaterally without any wheezing. CARDIAC: Normal S1 and S2. ABDOMEN: No masses. LABORATORY DATA: Creatinine 3.06. ASSESSMENT: Bilateral pleural effusion, large, asymptomatic, congestive heart failure, and renal failure. Pulmonary-antony, hold off thoracentesis unless he is more symptomatic. Repeat chest x-ray on Saturday. Job ID: [id number]
[2019-08-07 13:36] LABS: IgA - Total IgA (Sendout) 371 mg/dL (90-386); Immunoglobulin - G (Sendout) 477 mg/dL (603-1613); Immunoglobulin - M (Sendout) 42 mg/dL (20-172)
[2019-08-07 15:13] LABS: Cytoplasmic (C-ANCA) <1:20 titer (Neg:<1:20); Myeloperoxidase AutoAbs <9.0 U/mL (0.0-9.0); Perinuclear (P-ANCA) <1:20 titer (Neg:<1:20); Proteinase-3 AutoAbs Less than 3.5 U/mL (0.0-3.5)
[2019-08-07] MEDS: Milrinone Lactate/D5W 20 MG in Premix Bag 1 BAG IV SCH (16:17)
[2019-08-07 17:09] LABS: CRP (Inflammatory) Less than 0.50 mg/dL (= or < 0.5); Iron 63 ug/dL (65-175); Iron Binding Capacity, Total 234 mcg/dL (261-462); Magnesium 2.1 mg/dL (1.6-2.6)
--- NOTE | 2019-08-07 17:19 | CON ---
DATE OF CONSULTATION: 08/07/2019 REASON FOR CONSULTATION: Management of acute heart failure exacerbation. HISTORY OF PRESENT ILLNESS: Mr. Kenji Mansfield, 59-year-old gentleman without previous cardiac history, was admitted for acute decompensated heart failure. One year ago, he did not really have much cardiac problem. He said he could walk as far as he wants to without symptoms. He started to notice that he developed lower extremity edema starting in February of this year (2019). Then, he developed progressive fatigue and shortness of breath. Energy level was quite low. In April of this year, it was discovered that he has renal insufficiency with elevating creatinine. He was referred to a food service associate, Dr. Israel. He received furosemide 40 mg daily. He said it helped his edema a bit, but then edema returned. Then, a combination of fatigue, lack of energy edema became worse. He also became orthopneic. It was particularly bad in June. He needed to sleep in a recliner, sitting nearly straight up. At times, he has to lean over forward to breathe. When he does fall asleep , he will wake up in the middle of the night, needing to sit up to .take a deep breath of air. The combination of fatigue, edema, shortness of breath, and inability to sleep caused him to be admitted to the hospital. He was noted to be hypertensive in the hospital, and has worsening renal functions, so his [place] inhibitor was stopped and isosorbide dinitrate hydralazine was started. He will receive IV furosemide. However, his creatinine worsened with reaching at 3 today. PAST MEDICAL HISTORY: Includes 1. Type 2 diabetes, that now he needs insulin starting in February this year. 2. Hypertension. 3. Chronic renal insufficiency. 4. Some reports of nephrotic syndrome. 5. Hyperlipidemia with high triglycerides. 6. New onset heart failure with reduced ejection fraction. SOCIAL HISTORY: He smokes cigar. He has been doing that for greater than 20 years. He denies alcohol use. He denies illicit drug use. 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 FAMILY HISTORY: His father of myocardial infarction at age 59. His mother is still alive at age 84, but she has a pacemaker. He has a healthy sister. REVIEW OF SYSTEMS: GENERAL: There is no fever, chills, but then he does has fatigue, low energy. HEENT: He denies any changing in vision, hearing or swallowing. PULMONARY: Please see HPI. CARDIAC: Please see HPI. GI: He did have some bouts of nausea and vomiting within the last month. However, he does not have any more of those right now. : There are no complaints of difficulty with urination. MUSCULOSKELETAL: There is no complaints of joint or muscle pains. INTEGUMENT: There are no complaints of skin breakdown. NEUROLOGIC: There are no focal deficits or weaknesses. ALLERGIES: HE HAS NO KNOWN DRUG ALLERGY. MEDICATIONS: His current medications include 1. Aspirin 81 mg daily. 2. Atorvastatin 40 mg at bedtime. 3. Carvedilol 3.125 mg twice a day. 4. Clonidine 0.2 mg three times a day. 5. Iron sulfate 325 mg daily. 6. Hydralazine 50 mg three times a day. 7. Isosorbide dinitrate 20 mg t.i.d. Telemetry was reviewed. The patient is in sinus rhythm. There are occasional PVCs. There are no concerning arrhythmias PHYSICAL EXAMINATION: VITAL SIGNS: Heart rate 75, blood pressure 142/81. GENERAL: He is alert and conversational. However, little bit short of breath. He looks kind of fatigued. HEENT: Show EOMI. Oropharynx benign with moist mucosa. NECK: JVP is about 11 cm with positive hepatojugular reflux. PULMONARY: Upper one-half of lung peralta has good air movement. His mid lung field, there are bilateral crackles. His bibasilar lung peralta are absent sounds. This suggests that he has large amount of pleural effusion. CARDIAC: Normal rate and rhythm, normal S1, S2. However, there is S4 present. There is a 1/6 holosystolic murmur near the apex. ABDOMEN: Soft, nontender, distended. Positive bowel sounds. EXTREMITIES: He has presacral edema. Lower extremity, he has about 2+ pitting edema from the feet toward his knee. There is slight pitting edema about the thighs. LABORATORY DATA: Sodium 138, potassium 4.0, BUN 48, creatinine 3.06. His August 06, 2019, echocardiogram was reviewed. 1. It showed left ventricular inner diameter of 6.5 cm. 2. LVEF 35%. 3. He has mild left ventricular hypertrophy with left posterior wall thickness about 13 mm 4. His cardiac chamber is more globular in appearance. 5. There is moderate mitral regurgitation. 6. There is mild aortic regurgitation. 7. He has a normal-size right ventricle. 8. He has a normal right ventricular function with TAPSE of 2.7 cm. 9. He has enlarged IVC that does not collapse with inspiration. 10. There is a large amount of pleural effusion seen on echocardiogram. ASSESSMENT: 59-year-old gentleman resides in [place] [employer] stage C and [place] Heart Association class 3B heart failure with reduced ejection fraction. He is likely to have both systolic and diastolic dysfunctions. The underlying cause of heart failure is unknown at this point. It could be combination of diabetes and longstanding hypertension. However, ischemia can be a cause. Once the creatinine improves, he will need a left heart catheterization/coronary angiogram to see if he has significant stenosis. He remains volume overloaded. Unfortunately, his renal function has worsened significantly. Consequently, he will need inotropic support to perfuse kidneys and support potential diuresis. RECOMMENDATIONS: 1. Hold oral Lasix for now to allow the kidneys to rest. 2. Start milrinone at 0.125 mcg/kg/minute. 3. If systolic blood pressure with milrinone 0.125 mcg/kg/minute is greater than 95 mmHg after 1 hour, please increase to 0.25 mcg/kg/minute. 4. Increase carvedilol to 6.25 mg twice a day. Please check the following labs, TSH, CRP, iron, TIBC, ferritin, and BMP. 5. Please add BMP and magnesium in addition to the BMP for daily lab. 6. Please do renal Duplex US to look for renal artery stenosis 7. Depending on exam tomorrow and his lab values, we can restart active diuresis again. For now, we will aim to increase the cardiac output to recover his renal function. 8. He will need a coronary angiogram when his creatinine has improved to the point where he can tolerate it. It has been a pleasure taking care of Mr. Kenji Mansfield. If you have any questions, please give me a call. Job ID: [id number] [id number]
[2019-08-07 17:23] LABS: Ferritin 217.34 ng/mL (22-322)
[2019-08-07] MEDS: HumaLOG 300 UNITS/3 ML VIAL SC PRN (18:04)
[2019-08-07] MEDS: Atorvastatin Calcium 40 MG TAB PO SCH (20:17)
[2019-08-07] MEDS: Carvedilol 6.25 MG TAB PO SCH (20:17)
[2019-08-08 04:58] LABS: #Basophils 0.1 thou/uL (0.0-0.2); #Eosinphils 0.3 thou/uL (0.0-0.7); #Lymphocytes 1.2 thou/uL (1.20-3.40); #Neutrophils 5.8 thou/uL (1.40-6.50); %Basophils 0.8 % (0.0-1.0); %Lymphocytes 13.9 % (21.0-51.0); %Monocytes 11.6 % (0.0-10.0); %Neutrophils 69.7 % (42.0-75.0); Mean Corpuscular HGB CONC 33.1 g/dL (32.0-36.0); Mean Corpuscular Volume 96.7 fL (78.0-98.0); Mean Platelet Volume 7.9 fL (7.4-10.4); Platelet Count 251 thou/uL (130-400); RBC Distribution Width 12.6 % (11.5-14.5); White Blood Cell (WBC) Count 8.3 thou/uL (4.8-10.8)
[2019-08-08 05:19] LABS: Anion Gap 13 mmol/L (10-20); BUN (Urea Nitrogen) 53 mg/dL (8.4-25.7); Calc. Creatinine Clearance 29 mL/min (70-130); Calcium 8.4 mg/dL (7.8-10.44); Carbon Dioxide 27 mmol/L (22-29); Chloride 104 mmol/L (98-107); Estimated GFR-MDRD 19; Glucose 144 mg/dL (70-105); Potassium 4.1 mmol/L (3.5-5.1); Sodium 140 mmol/L (136-145)
[2019-08-08] MEDS: Milrinone Lactate/D5W 20 MG in Premix Bag 1 BAG IV SCH (05:55)
--- NOTE | 2019-08-08 06:06 | PDOC.FM ---
- Subjective Subjective: Patient denies SOB or chest pain this morning. No complaints. He was receiving renal artery US this AM. - Objective Vital Signs & Weight: Vital Signs (12 hours) Temp Pulse Resp BP Pulse Ox 08/08/19 04:00 98.3 F 81 20 120/61 97 08/07/19 20:15 98.2 F 90 16 139/72 92 L Weight Admit Weight 78.925 kg Weight 87.26 kg I&O: 08/06/19 08/07/19 08/08/19 06:59 06:59 06:59 Intake Total 7739 617 5882 Output Total 1550 1600 0030 Balance -887 -542 -1551 Result Diagrams: 08/08/19 10:12 08/08/19 10:12 Phys Exam - Physical Examination Constitutional: NAD Respiratory: no wheezing, clear to auscultation bilateral Cardiovascular: RRR, no significant murmur Gastrointestinal: soft, non-tender edema 1+ BLE Neurological: non-focal, moves all 4 limbs Psychiatric: A&O x 3 Deviation from normal: flat affect Skin: normal turgor, cap refill <2 seconds Dx/Plan (1) Congestive heart failure (CHF) Code(s): I50.9 - HEART FAILURE, UNSPECIFIED Status: Acute (2) Anasarca Code(s): R60.1 - GENERALIZED EDEMA Status: Acute (3) Chronic kidney disease Code(s): N18.9 - CHRONIC KIDNEY DISEASE, UNSPECIFIED Status: Chronic (4) Diabetes mellitus, type 2 Status: Chronic (5) Diabetic nephropathy Status: Chronic (6) Diabetic retinopathy Code(s): E11.319 - TYPE 2 DIABETES W UNSP DIABETIC RTNOP W/O MACULAR EDEMA Status: Chronic (7) HLD (hyperlipidemia) Code(s): E78.5 - HYPERLIPIDEMIA, UNSPECIFIED Status: Chronic (8) HTN (hypertension) Code(s): I10 - ESSENTIAL (PRIMARY) HYPERTENSION Status: Chronic (9) Person under investigation for COVID-19 Code(s): Z20.828 - CONTACT W AND EXPOSURE TO OTH VIRAL COMMUNICABLE DISEASES Status: Acute (10) Heart failure Code(s): I50.9 - HEART FAILURE, UNSPECIFIED Status: Acute - Plan Plan: BRYNN on CKD, worsening Anasarca 2/2 Nephrotic syndrome 2/2 Diabetic nephropathy, improving Cardiorenal Syndrome - Creatinine continues to trend upwards, 3.4 today - Dr. Israel, consulted -Hep B & C neg, MERRILL neg -ANCA and urine electrophoresis pending - Renal artery US pending -Dr. Hollingsworth consulted yesterday: stopped lasix, started milrinone drip New onset, mixed CHF NYHA Class 3B, AHA Stage C HF - ECHO- EF 30-35%, Grade 2/3 diastolic dysfunction - Cardiology Dr. Lee consulted along with heart failure clinic - Stopped amlodipine. Started coreg, isordil, hydralazine - Heart Failure specialist, Dr. Hollingsworth Consulted - Stopped lasix, started milrinone drip - Patient will need L heart cath once renal function stabilized Pleural effusion - Pulm Dr. Duarte consulted for pleural effusion, recommend no intervention due to asx at this time -Repeat CXR tomorrow DM II - Increased insulin to 23 u today. Continue accuchecks and SSI - Stopped metformin 2/2 BRYNN on CKD - A1c 7.0 HTN - Amlodipine stopped 2/2 HFrEF - Started coreg, hydralazine, isordil; milrinone today - PRN hydralazine for SBP >180 HLD - Continue home medications COVID ruled out Iron deficiency, Normocytic Anemia -Hgb dropped from 10.5 => 9 - Continue Fe replacement Dispo: Currently on milrinone drip. Kidney function continues to worsen. Renal artery US today. Cardiac and renal work up continuing. Nephrology, pulm, and cardiology following, appreciate recs. Anticipate LOS > 48 hours. Code: Full VTE: Heparin PCP: Abraham Day PGY2 Addendum - Attending - Attending Attestation Date/Time: 08/08/19 1123 I personally evaluated the patient and discussed the management with Dr. Day. I agree with the History, Examination, Assessment and Plan documented above with any addition or exceptions noted below. Patient overall stable, without complaint this morning. Continues to diurese but with worsening renal function. Severe sCHF at this time, now HF team on board and starting on Milrinone. Diuresis and HF mgmt will be pending Nephro and HF team recs.
[2019-08-08] MEDS ORDERED: Furosemide 40 MG TAB PO SCH (07:30)
--- NOTE | 2019-08-08 08:06 | ULT ---
BILATERAL RENAL ULTRASOUND: HISTORY: Evaluate renal arteries. COMPARISON: None. TECHNIQUE: Grayscale, color flow, Doppler imaging and spectral waveform analysis was performed of the renal angel [place]. FINDINGS: Right kidney: Normal cortical echotexture. No hydronephrosis. Right kidney measurements: 4.3 x 11.3 x 5.3 cm. Left kidney: Normal cortical echotexture. No hydronephrosis. Left kidney measurements 4.5 x 11.7 x 4.8 cm. Urinary bladder: Normal mucosa. Bilateral ureteral jets are identified. Doppler imaging: Right renal artery 69.9 cm/s Left renal artery 33.2 cm/s Aorta 161.7 cm/s Right renal artery to aorta ratio 0.43 Left renal artery to aorta ratio 0.21 Right renal artery arcuate resistive indices 0.79 Left arcuate artery resistive indices 0.88 IMPRESSION: 1. No hydronephrosis. 2. Increased resistive indices of both arcuate arteries suggesting medical renal disease. 3. Asymmetric velocity of the left renal artery with respect to the contralateral side. If there is c oncern for renal artery stenosis, consider CT angiogram. Transcribed Date/Time: 08/08/2019 8:47 AM
[2019-08-08] MEDS ORDERED: Insulin Glargine 25 UNITS in Pre-Filled Syringe 1 EACH SC SCH (09:00)
[2019-08-08] MEDS ORDERED: Insulin Glargine 20 UNITS in Pre-Filled Syringe 1 EACH SC SCH (09:00)
[2019-08-08] MEDS: Ferrous Sulfate 325 MG TAB PO SCH (09:10)
[2019-08-08] MEDS: Aspirin 81 mg Enteric Coated Tablet PO SCH (09:10)
[2019-08-08] MEDS: hydrALAZINE 25 MG TAB PO SCH ×3 (09:11→21:04)
[2019-08-08] MEDS: Potassium Chloride 20 MEQ TAB PO SCH (09:11)
[2019-08-08] MEDS: cloNIDine 0.2 MG TAB PO SCH ×3 (09:11→20:44)
[2019-08-08] MEDS: Carvedilol 6.25 MG TAB PO SCH ×2 (09:12→20:45)
[2019-08-08] MEDS: Isosorbide Dinitrate 20 MG TAB PO SCH ×3 (09:12→20:44)
[2019-08-08] MEDS: Heparin 5,000 UNITS/ML VIAL SC SCH ×3 (09:12→20:44)
[2019-08-08] MEDS: Insulin Glargine 23 UNITS in Pre-Filled Syringe 1 EACH SC SCH (09:13)
[2019-08-08] MEDS: Fluticasone Propionate Nasal Spray 16 gm Bottle NASAL SCH (09:28)
[2019-08-08 10:47] LABS: #Basophils 0.1 thou/uL (0.0-0.2); #Eosinphils 0.4 thou/uL (0.0-0.7); #Lymphocytes 1.5 thou/uL (1.20-3.40); #Monocytes 1.1 thou/uL (0.11-0.59); #Neutrophils 5.7 thou/uL (1.40-6.50); %Basophils 0.9 % (0.0-1.0); %Eosinophils 4.4 % (0.0-10.0); %Lymphocytes 16.8 % (21.0-51.0); %Monocytes 12.3 % (0.0-10.0); %Neutrophils 65.6 % (42.0-75.0); Hemoglobin 8.9 g/dL (14.0-18.0); Mean Corpuscular HGB CONC 34.2 g/dL (32.0-36.0); Mean Corpuscular Hemoglobin 33.2 pg (27.0-31.0); Mean Corpuscular Volume 96.9 fL (78.0-98.0); Platelet Count 252 thou/uL (130-400); RBC Distribution Width 12.5 % (11.5-14.5); Red Blood Cell (RBC) Count 2.67 mill/uL (4.70-6.10); White Blood Cell (WBC) Count 8.7 thou/uL (4.8-10.8)
[2019-08-08 11:08] LABS: Anion Gap 14 mmol/L (10-20); BUN (Urea Nitrogen) 51 mg/dL (8.4-25.7); Calc. Creatinine Clearance 29 mL/min (70-130); Calcium 8.3 mg/dL (7.8-10.44); Carbon Dioxide 26 mmol/L (22-29); Chloride 103 mmol/L (98-107); Estimated GFR-MDRD 18; Glucose 170 mg/dL (70-105); Magnesium 2.3 mg/dL (1.6-2.6); Sodium 139 mmol/L (136-145)
[2019-08-08] MEDS: DOBUTamine 500 mg/250 ml 500 MG in Premix Bag 1 BAG IVPB SCH (11:46)
--- NOTE | 2019-08-08 11:51 | PRG ---
DATE OF SERVICE: 08/08/2019 SUBJECTIVE: Mr. Mansfield is a 59-year-old white male, seen by Renal Service for his chronic renal failure/nephrotic syndrome. He came in with anasarca. He was started on diuretics. He was found also to have a decreased ejection fraction. Cardiology is being consulted. The patient has been started on milrinone IV. Renal function is noted to be worsening. His generalized edema has much improved. No complaints of chest pain or shortness of breath. OBJECTIVE: VITAL SIGNS: Blood pressure is noted at 161/76, heart rate 90, respiratory rate 14, temperature 98.1, O2 saturation 92%. GENERAL: Awake, alert, comfortable, not in distress. SKIN: Adequate turgor. HEENT: Slightly pale conjunctivae. Anicteric sclerae. NECK: No neck mass. No carotid bruits. No JVD. CHEST: No deformities. LUNGS: Decreased breath sounds. HEART: Normal sinus rhythm. No murmurs. No gallops. No rubs. ABDOMEN: Globular, soft, nontender. No masses. EXTREMITIES: Trace edema. MEDICATIONS: On August 08, 2019, were reviewed. LABORATORY DATA: On August 08, 2019; white count 8.7, hemoglobin 8.9. Sodium 140, potassium 4.1, chloride 104, carbon dioxide 27, BUN 53, creatinine 3.41, glucose 144, calcium 8.4. BNP is 459. ASSESSMENT AND PLAN: 1. Chronic renal failure/acute kidney injury, worsening renal dysfunction. Creatinine noted now 3.41 and yesterday this was noted to be at 3.05. Our plan is to decrease Lasix from 40 mg p.o. b.i.d. to once a day. Continue to optimize cardiac status. Currently, on IV milrinone. 2. Anasarca, clinically much improved. We will decrease dose of Lasix. 3. Acute kidney injury superimposed prerenal azotemia. No indication for any dialytic intervention. 4. Anemia. Continuing to observe. Recheck basic metabolic panel and CBC in a.m. Job ID: [id number]
--- NOTE | 2019-08-08 12:41 | PRG ---
DATE OF SERVICE: 08/08/2019 This is from [facility]. SUBJECTIVE: Mr. Mansfield had a variable day. Milrinone was started yesterday afternoon. He said that he felt good. He was breathing better. He had a steady urine output even without diuretics. He was able to sleep nearly flat. However , he does not feel as good this morning. He believes that he is a little unsteady on his feet. He feels a bit lightheaded. He denies any chest pains or syncope. However, he said that he had a chronic cough for several months now. CURRENT MEDICATIONS: Include; 1. Aspirin 81 mg daily. 2. Atorvastatin 40 mg at bedtime. 3. Carvedilol 6.25 mg twice a day. 4. Clonidine 0.2 mg three times a day. 5. Lasix 40 mg daily. 6. Hydralazine 50 mg q.8 hours. 7. Isosorbide dinitrate at 20 mg twice a day. 8. Potassium 20 mEq daily. Telemetry is reviewed, he is maintaining sinus rhythm. There were no concerning arrhythmias. PHYSICAL EXAMINATION: VITAL SIGNS: When I saw him, his heart rate was about 90, blood pressure 101/ 59. GENERAL: He is alert, conversational, sitting comfortably in bed. However, he does look fatigued. HEENT: Showed EOMI. Oropharynx shows moist mucosa. NECK: His JVP is about 10 cm. PULMONARY: Has better air movement today, but there is near absent breath sounds at bilateral bases. There are also some left base crackles. CARDIAC: Regular rate and rhythm with 3/6 holosystolic murmur at the apex with radiation to the left axilla. There is 1/6 diastolic murmur at the right lower sternal border. ABDOMEN: Soft, nontender. Positive bowel sounds. EXTREMITIES: He has about 0.5 cm pitting edema from the feet about 3/4 way up towards knee. LABORATORY VALUES: Showed that his sodium is 139, potassium is 4, BUN 51, creatinine 3.47, magnesium 2.3, but his BNP has decreased down to 459.6. Renal duplex ultrasound was also done, it suggested there is a potential left renal artery stenosis because there is significant decrease in velocity at the left renal artery. It also said that there is high resistance in the kidneys, suggestive of intrinsic renal disease. ASSESSMENT: 59-year-old gentleman, resides in [employer] stage C, [facility] class III heart failure with reduced ejection fraction with combined systolic and diastolic dysfunction. He also has intrinsic renal disease independent of cardiac cause, which will make overall treatment much more difficult in addition. There is a good chance that he has left renal artery stenosis that is driving his [id number] hypertension. Currently, he has significant decrease in his volume status. However, his blood pressure may be too low for his renal systems, especially a systolic blood pressure of 101. This is a significant decrease in BP. With creatinine at 3.47, he may not be clearing his milrinone well that could lead to toxic buildup of milrinone, so this will also need to be changed. Please see the following for my recommendation. RECOMMENDATIONS: 1. Stop milrinone. 2. Start dobutamine 2.5 mcg/kg per minute IV GTT, this is to augment the cardiac output to perfuse kidneys. 3. With systolic blood pressure dropping, we will reduce hydralazine to 25 mg q.8 hours to allow better perfusion of the kidneys. 4. I will speak to Dr. Israel to coordinate his diuretics. He currently is dry enough, he does not need diuretics for a day or two. Perhaps, we can give him one or two days free of diuretics to allow his renal function to return. 5. We will need to do a noncontrast CT of the chest to ensure that there are not some other problems that is causing the pleural effusion. He is a smoker, has unexplained weight loss, and 3 plus months of chronic cough, so there is maybe some thin underlying. It has been a pleasure taking care of Mr. Mansfield. If you have any questions, please give me a call. Job ID: [id number] MTDD
--- NOTE | 2019-08-08 14:11 | CT ---
Exam: Chest CT without contrast HISTORY: Cough. Fluid in lungs. Pleural effusion Comparison none FINDINGS: Limited evaluation mediastinum due to the lack of IV contrast. No mass, lymphadenopathy or hematoma Heart size is upper normal. There is a small amount of pericardial fluid Upper abdomen does not demonstrate any acute abnormality Trachea and central bronchi are patent Moderate bilateral pleural effusions with consolidation in the adjacent lung parenchyma due to atelec tasis. Pneumonia or aspiration is less favored but cannot be excluded. There are no lytic or blastic lesions in the osseous structures IMPRESSION: Moderate bilateral pleural effusion with adjacent lung parenchymal consolidation suggesting passive a telectasis. Aspiration or pneumonia cannot be excluded. Transcribed Date/Time: 08/08/2019 2:29 PM
[2019-08-08] MEDS: Atorvastatin Calcium 40 MG TAB PO SCH (20:44)
[2019-08-09 04:05] LABS: #Eosinphils 0.4 thou/uL (0.0-0.7); #Lymphocytes 1.4 thou/uL (1.20-3.40); #Monocytes 1.1 thou/uL (0.11-0.59); %Basophils 0.6 % (0.0-1.0); %Lymphocytes 17.7 % (21.0-51.0); %Monocytes 13.5 % (0.0-10.0); %Neutrophils 63.3 % (42.0-75.0); Hemoglobin 8.3 g/dL (14.0-18.0); Mean Corpuscular HGB CONC 32.1 g/dL (32.0-36.0); Mean Corpuscular Hemoglobin 31.5 pg (27.0-31.0); Mean Corpuscular Volume 97.9 fL (78.0-98.0); Mean Platelet Volume 7.2 fL (7.4-10.4); Platelet Count 216 thou/uL (130-400); RBC Distribution Width 12.7 % (11.5-14.5); Red Blood Cell (RBC) Count 2.63 mill/uL (4.70-6.10); White Blood Cell (WBC) Count 7.9 thou/uL (4.8-10.8)
[2019-08-09 04:25] LABS: Anion Gap 14 mmol/L (10-20); BUN (Urea Nitrogen) 50 mg/dL (8.4-25.7); Calc. Creatinine Clearance 28 mL/min (70-130); Calcium 8.1 mg/dL (7.8-10.44); Carbon Dioxide 23 mmol/L (22-29); Chloride 103 mmol/L (98-107); Estimated GFR-MDRD 18; Glucose 87 mg/dL (70-105); Sodium 136 mmol/L (136-145)
[2019-08-09] MEDS: hydrALAZINE 25 MG TAB PO SCH ×3 (05:09→21:36)
--- NOTE | 2019-08-09 05:52 | PDOC.FM ---
- Subjective Subjective: Patient reports his SOB has been better for the past couple of days. He reports he did get dizzy and lightheaded on milrinone yesterday, but when he was switched to dobutamine that resolved. He has a right sided temporal headache this morning, and his blood pressure is elevated this AM to 180/97. He voided this morning. He is stooling well. He reports somewhat decreased appetite. His swelling is much improved, and he is wanting to know when he can go home. Chest CT yesterday showed moderate bilateral pleural effusions, and passive atelectasis. Renal artery sono showed medical disease and asymmetric velocity to the L kidney. Dr. Hollingsworth transitioned him from milrinone to dobutamine and decreased his hydralazine in order to increase kidney perfusion. - Objective Vital Signs & Weight: Vital Signs (12 hours) Temp Pulse Resp BP BP Pulse Ox 08/09/19 04:25 97.8 F 85 16 145/70 H 93 L 08/08/19 20:44 161/76 H 08/08/19 19:34 98.8 F 87 18 131/68 93 L 08/08/19 19:30 93 L Weight Admit Weight 78.925 kg Weight 85.502 kg I&O: 08/07/19 08/08/19 08/09/19 06:59 06:59 06:59 Intake Total 840 1370 1323.2 Output Total 1600 2325 800 Balance -760 955 523.2 Result Diagrams: 08/09/19 03:49 08/09/19 03:49 Phys Exam - Physical Examination Constitutional: NAD diminished at bases, clear upper lungs on auscultation. No wheezing. Cardiovascular: RRR, no significant murmur Gastrointestinal: soft, non-tender, no distention, positive bowel sounds 1+ bilat lower edema, much improved Neurological: non-focal, moves all 4 limbs Psychiatric: A&O x 3 Skin: normal turgor, cap refill <2 seconds Dx/Plan (1) Congestive heart failure (CHF) Code(s): I50.9 - HEART FAILURE, UNSPECIFIED Status: Acute (2) Anasarca Code(s): R60.1 - GENERALIZED EDEMA Status: Acute (3) Chronic kidney disease Code(s): N18.9 - CHRONIC KIDNEY DISEASE, UNSPECIFIED Status: Chronic (4) Diabetes mellitus, type 2 Status: Chronic (5) Diabetic nephropathy Status: Chronic (6) Diabetic retinopathy Code(s): E11.319 - TYPE 2 DIABETES W UNSP DIABETIC RTNOP W/O MACULAR EDEMA Status: Chronic (7) HLD (hyperlipidemia) Code(s): E78.5 - HYPERLIPIDEMIA, UNSPECIFIED Status: Chronic (8) HTN (hypertension) Code(s): I10 - ESSENTIAL (PRIMARY) HYPERTENSION Status: Chronic (9) Person under investigation for COVID-19 Code(s): Z20.828 - CONTACT W AND EXPOSURE TO OTH VIRAL COMMUNICABLE DISEASES Status: Acute (10) Heart failure Code(s): I50.9 - HEART FAILURE, UNSPECIFIED Status: Acute (11) Pleural effusion Code(s): J90 - PLEURAL EFFUSION, NOT ELSEWHERE CLASSIFIED Status: Acute - Plan Plan: New onset systolic and diastolic CHF NYHA Class 3B, AHA Stage C HF ECHO showed EF 30-35%, Grade 2/3 diastolic dysfunction. - Cardiology, Dr. Lee, was consulted along with heart failure clinic. Amlodipine was stopped due to systolic HF. Started coreg, isordil, hydralazine. - Heart Failure specialist, Dr. Hollingsworth Consulted. Milrinone transitioned to dobutamine yesterday, Hydralazine was decreased to 25 mg q8 to allow better kidney perfusion. Patient will need L heart cath once renal function stabilized. Anasarca 2/2 Nephrotic syndrome 2/2 Diabetic nephropathy, improving Cardiorenal Syndrome BRYNN on CKD, worsening - Creatinine continues to trend upwards, 3.5 today, GFR remained at 18. Dr. Israel , consulted. Renal US yesterday showed medical renal disease, with increased velocity in L renal artery. Further work up so far negative with regards to MERRILL , ANCA, hep B and C, immunology studies. Bilateral Pleural effusion - Pulm Dr. Duarte consulted for pleural effusion, recommend no intervention at this point. CT 08/07 showed moderate bialteral plelural effusions and atelectasis. CXR pending for this morning. Patient reports his SOB is improved. DM II, controlled - A1C of 7.0. Metformin was stopped due to worsening renal function. Continue 23 u insulin daily. HTN - Home amlodipine stopped 2/2 HFrEF. Continue coreg, hydralazine, isordil. PRN hydralazine available for SBP >180. HLD. Continue home medications COVID ruled out Iron deficiency, Normocytic Anemia -Hgb continues to slowly decrease, 8.3 this AM. Continue to monitor. Watch for s /s bleeding. Dispo: Patient remains on dobutamine for cardiorenal syndrome. Appreciate recs of nephrology, cardiology, and pulm. Renal function continues to slowly decline. Following cards and renal recs regarding diuresis management and when patient will be ready for discharge. Code: Full VTE: Heparin PCP: Abraham Day PGY2 Addendum - Attending - Attending Attestation Date/Time: 08/09/19 0801 I personally evaluated the patient and discussed the management with Dr. Day. I agree with the History, Examination, Assessment and Plan documented above with any addition or exceptions noted below. Patient here for originally anasarca from nephrotic syndrome per Nephro, was diuresing well but then found to have new diagnosis of sCHF. Dr. Hollingsworth is now on board. Patient continues to have declining renal function despite dobutamine. Patient BP did not tolerate milrinone. Patient has improved edema and no respiratory complaints. Awaiting further recs from Cards and Nephro in a balance of fluid overload, heart function, and renal function.
[2019-08-09] MEDS ORDERED: Furosemide 40 MG TAB PO SCH (07:30)
[2019-08-09] MEDS: Potassium Chloride 20 MEQ TAB PO SCH (08:09)
[2019-08-09] MEDS: Ferrous Sulfate 325 MG TAB PO SCH (08:09)
[2019-08-09] MEDS: Isosorbide Dinitrate 20 MG TAB PO SCH ×3 (08:55→19:48)
[2019-08-09] MEDS: Heparin 5,000 UNITS/ML VIAL SC SCH ×3 (08:55→19:48)
[2019-08-09] MEDS: cloNIDine 0.2 MG TAB PO SCH ×3 (08:56→19:48)
[2019-08-09] MEDS: Carvedilol 6.25 MG TAB PO SCH ×2 (08:56→19:48)
[2019-08-09] MEDS: Aspirin 81 mg Enteric Coated Tablet PO SCH (08:56)
[2019-08-09] MEDS: Insulin Glargine 23 UNITS in Pre-Filled Syringe 1 EACH SC SCH (08:57)
[2019-08-09] MEDS: Fluticasone Propionate Nasal Spray 16 gm Bottle NASAL SCH (09:05)
[2019-08-09 09:11] LABS: #Basophils 0.1 thou/uL (0.0-0.2); #Eosinphils 0.3 thou/uL (0.0-0.7); #Lymphocytes 1.5 thou/uL (1.20-3.40); #Neutrophils 5.5 thou/uL (1.40-6.50); %Basophils 0.7 % (0.0-1.0); %Eosinophils 3.8 % (0.0-10.0); %Lymphocytes 17.8 % (21.0-51.0); %Monocytes 12.3 % (0.0-10.0); %Neutrophils 65.4 % (42.0-75.0); Hemoglobin 9.2 g/dL (14.0-18.0); Mean Corpuscular Hemoglobin 33.1 pg (27.0-31.0); Mean Corpuscular Volume 97.5 fL (78.0-98.0); Mean Platelet Volume 7.5 fL (7.4-10.4); Platelet Count 224 thou/uL (130-400); RBC Distribution Width 12.6 % (11.5-14.5); Red Blood Cell (RBC) Count 2.77 mill/uL (4.70-6.10); White Blood Cell (WBC) Count 8.5 thou/uL (4.8-10.8)
[2019-08-09 09:31] LABS: Anion Gap 14 mmol/L (10-20); BUN (Urea Nitrogen) 49 mg/dL (8.4-25.7); Calc. Creatinine Clearance 28 mL/min (70-130); Calcium 8.4 mg/dL (7.8-10.44); Carbon Dioxide 24 mmol/L (22-29); Chloride 101 mmol/L (98-107); Estimated GFR-MDRD 18; Glucose 168 mg/dL (70-105); Magnesium 2.3 mg/dL (1.6-2.6); Potassium 4.2 mmol/L (3.5-5.1); Sodium 135 mmol/L (136-145)
--- NOTE | 2019-08-09 10:51 | PRG ---
DATE OF SERVICE: 08/09/2019 SUBJECTIVE: Mr. Mansfield is a 59-year-old white male, who was initially admitted for anasarca. He was diuresed and edema is much improved. He also had a cardiac echo, which showed decrease in ejection fraction. 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 He has now been converted to IV dobutamine. During his hospital stay, renal ultrasound with Doppler was ordered, which was suspicious for possible renal artery stenosis. We also adjusted the diuretics due to the fact that the patient's creatinine was progressively worsening. His creatinine yesterday was noted at 3.5 and currently now is 3.46. BNP is noted at 379. Since the patient is clinically asymptomatic, my bias is to discontinue the furosemide. No other complaints. No chest pain or shortness of breath. OBJECTIVE: VITAL SIGNS: Blood pressure 168/86, heart rate 85, respiratory rate 14, temperature 98.4, and O2 saturation 99%. GENERAL: The patient is awake, alert, comfortable, not in overt distress. SKIN: Adequate turgor. HEENT: He has a slightly pale conjunctivae. Anicteric sclerae. NECK: No neck mass. No carotid bruits. No JVD. CHEST: No deformities. LUNGS: Clear breath sounds. No wheezing. No crackles. HEART: Normal sinus rhythm. No murmur. No gallops. No rubs. ABDOMEN: Globular, soft, and nontender. No masses. EXTREMITIES: No edema. No deformities. MEDICATIONS: Medications of August 09, 2019; were reviewed. LABORATORY DATA: Laboratories of August 09, 2019; white count 8.5, hemoglobin 9.2. Sodium 135, potassium 4.2, chloride 101, carbon dioxide 24, BUN 49, creatinine 3.46, GFR 18 mL/minute, calcium 8.4, and magnesium is 2.3. ASSESSMENT AND PLAN: 1. Acute kidney injury/chronic renal failure - the patient has underlying diabetic nephropathy due to the proteinuria. Creatinine is plateauing with adjustment of diuretics. My bias is to just discontinue the current diuretic regimen. Please note, his cardiac status is being optimized. Still currently on IV dobutamine. 2. Congestive heart failure/decreased ejection fraction - the patient currently on IV dobutamine. He has also been started on carvedilol at 6.25 mg p.o. b.i.d. the eventual plan if renal function will further improve is this patient may need a cardiac catheterization for further workup of the decreased EF. 3. Anasarca, clinically much improved. We will discontinue Lasix. We will recheck basic metabolic panel and CBC in a.m. Job ID: [id number]
--- NOTE | 2019-08-09 11:02 | RAD ---
EXAM: Chest PA and lateral: HISTORY: Congestive heart failure COMPARISON: 08/05/2019 FINDINGS: Heart: Cardiomegaly. Aorta: Unremarkable Pulmonary vessels: Normal Costophrenic angles: Bilateral pleural effusions. Lungs: Bibasilar parenchymal changes. Pneumothorax: No pneumothorax Osseous structures: No osseous abnormalities IMPRESSION: Congestive heart failure. Superimposed aspiration or pneumonia in the lung bases cannot be excluded.
[2019-08-09] MEDS ORDERED: Milrinone Lactate/D5W 20 MG in Premix Bag 1 BAG IV SCH (11:30)
--- NOTE | 2019-08-09 12:37 | PRG ---
DATE OF SERVICE: 08/09/2019 This is from [facility]. SUBJECTIVE: Mr. Mansfield had a good day. He was initiated dobutamine. He felt better. He was able to ambulate greater distance. He was able to ambulate further, that relieves his feeling of dizziness. He is feeling more energetic. He is able to breathe well. His orthopnea has almost dissipated. He can sleep almost nearly flat without PND. REVIEW OF SYSTEMS: GENERAL: There is no fever, chills, or productive cough. HEENT: There is no change in vision, hearing, or swallowing. PULMONARY: Please see HPI. CARDIAC: There is no chest pain, palpitation, syncope. GI: He is eating well. : He is able to produce urine, even though he is off diuretics yesterday. MUSCULOSKELETAL: No complaint of joint or muscle pain. INTEGUMENT: There is no skin breakdown. NEUROLOGIC: There are no new focal deficits or weaknesses. ALLERGIES: HE HAS NO KNOWN DRUG ALLERGIES. CARDIAC MEDICATIONS: 1. Aspirin 81 mg daily. 2. Atorvastatin 40 mg at bedtime. 3. Carvedilol 6.25 mg b.i.d. 4. Clonidine 0.2 mg t.i.d. 5. Dobutamine currently at 2.5 mcg/kg/min. 6. Hydralazine 25 mg p.o. q.8 hours. 7. Isordil, which is isosorbide dinitrate at 20 mg p.o. t.i.d. 8. Potassium chloride 20 mEq daily. PHYSICAL EXAMINATION: Telemetry was reviewed. He is generally in sinus rhythm. There is one bout of seven beats of wide-complex irregular followed by sinus tachycardia for about a minute and after that has been stable without any problems and that occurred about 2:00 p.m. yesterday. It has been stable ever since. VITAL SIGNS: His latest vitals are heart rate 80 and blood pressure 168/86. GENERAL: He is alert and conversational, sitting comfortably in bed. He is more alert, energetic today. HEENT: Show EOMI. Oropharynx is benign with moist mucosa. NECK: His JVP is little bit elevated about 11 cm with positive hepatojugular reflux. PULMONARY: There is good air movement in bilateral upper peralta. There are absent sounds in bilateral bases. There are some slight left basilar crackles. CARDIAC: Regular rate and rhythm. There was a 2/6 holosystolic murmur at the apex with radiation to the left axilla. There is also 1/6 diastolic murmur at the right sternal border. ABDOMEN: Soft, nontender. Positive bowel sounds. EXTREMITIES: Lower extremity, he has about 0.5 cm pitting edema from feet about 3/4 way up towards the knees. He has not changed. Noncontrast CT scan is done. Due to unintentional weight loss. Complains of chronic cough and existent pleural effusion on exam. He shows bilateral pleural effusions. There is no evidence of a neoplasia from the given lung peralta. Renal Doppler ultrasound suggests there is bilateral intrinsic renal disease. There is also possible left renal artery stenosis. LABORATORY VALUE: Sodium 135, potassium 4.2, BUN 49, creatinine 3.46. His BNP actually decreased down to 379. ASSESSMENT: 59-year-old gentleman has multitude of problems. From a heart perspective, he resides in [place] Heart Association stage C, [place] Heart Association class 3 heart failure with reduced ejection fraction. The cause of his heart failure is unknown at this point. He really needs coronary angiogram to see if there are ischemic causes; however, this cannot be done with creatinine at 3.46. The target goal will be creatinine going down to about 2.5 before an angiogram can be safely done without ruining his kidneys. He also has renal artery stenosis. He has, however, chronic renal insufficiency with acute renal exacerbation, however , his creatinine has stabilized at 3.46 and improved slightly. Consequently, the increased cardiac output to the kidneys did help. At this point, we are going to increase blood flow to his kidney to support a diagnostic coronary angiogram to see why his heart. Please see the following for my recommendations. RECOMMENDATIONS: 1. Continue dobutamine 2.5 mcg/kg per minute. 2. Add on milrinone 0.125 mcg/kg per minute does to allow more for cardiac output to improve kidneys without getting toxic range. 3. Please keep potassium above 4 and magnesium above 2 to keep the arrhythmia at bay. He did have one single run hopefully by keeping the electrolytes within good range, we can avoid this. If he has not a run, then we will have to start amiodarone. I want to avoid this for now. 4. We will work with Dr. Israel, client success manager on diuretics. He is not overly edematous. He has room to tolerate a little bit of volume. Agree with Lasix 40 mg p.o. once a day. Hopefully, his renal function will recover in the next several days. It has been a pleasure taking care of Mr. Kenji Mansfield. If you have any questions, please give me a call. Job ID: [id number] [facility]
--- NOTE | 2019-08-09 15:10 | PRG ---
DATE OF SERVICE: 08/09/2019 SUBJECTIVE: Mr. Mansfield remains clinically stable. He says he can lay flat in bed without any dyspnea. OBJECTIVE: VITAL SIGNS: His heart rate is 80, he is afebrile, respiratory rate is 15, oximetry is 98 on room air, and blood pressure 145/81. IMAGING STUDIES: Chest radiograph shows bibasilar effusions and infiltrates. IMPRESSION: Congestive heart failure with bilateral effusions, clinically asymptomatic. There is no clear-cut indication for thoracentesis. The pleural effusions will resolve slowly with diuresis. Intake and output coming in today was positive 523 with 1200 mL of intake orally in the last 24 hours, 1300 mL of p.o. intake the day before. Job ID: [id number]
[2019-08-09] MEDS: Atorvastatin Calcium 40 MG TAB PO SCH (19:48)
--- NOTE | 2019-08-09 20:01 | PDOC.BPN ---
- Brief Progress Note Mr. Mansfield is a 59yo M w/ a PMH of DMII, HTN, and HLD who presented to the ED for evaluation of increasing swelling and shortness of breath since "the first of the year". He believes about 5 months. He states that these symptoms came on gradually. He endorses cough, orthopnea, PND, and MARIE. He was seen by Dr. Israel on admission who recommended he come to the ED for more emergent evaluation. Dr. Israel started seeing him for fluid overload in June and diagnosed him with diabetic nephropathy vs CKD III. He has been taking Lasix 40mg po daily at home, and despite this his swelling has not improved significantly. He had a reported fever in his hot vehicle, and was initially a covid rule out on admission. He was started on albumin and lasix initially for diuresis for his anasarca, then developed fluid overload, and albumin was discontinued. Echo showed new onset systolic and diastolic heart failure. Dr Hollingsworth was consulted for his heart failure and originally started him on milrinone. His blood pressure could not tolerate milrinone, so he was switched to dobutamine. Dr. Hollingsworth plans for a cardiac cath to further evaluate the cause of his heart failure once his renal function stabilizes, and to see if there is a reversible cause. It may also be that the patient decides to go ahead with the cath and risks going into renal failure. He continues to diurese and his kidney function has started to stabilize. Dr. Israel and Dr. Hollingsworth are coordinating his diuresis and HTN medications in order to maintain kidney perfusion.
[2019-08-10 04:17] LABS: Anion Gap 12 mmol/L (10-20); BUN (Urea Nitrogen) 51 mg/dL (8.4-25.7); Calc. Creatinine Clearance 27 mL/min (70-130); Calcium 8.1 mg/dL (7.8-10.44); Carbon Dioxide 23 mmol/L (22-29); Chloride 102 mmol/L (98-107); Estimated GFR-MDRD 18; Glucose 102 mg/dL (70-105); Potassium 4.1 mmol/L (3.5-5.1); Sodium 133 mmol/L (136-145)
[2019-08-10] MEDS: hydrALAZINE 25 MG TAB PO SCH ×3 (05:35→20:22)
[2019-08-10] MEDS: DOBUTamine 500 mg/250 ml 500 MG in Premix Bag 1 BAG IVPB SCH (05:37)
--- NOTE | 2019-08-10 08:23 | PDOC.FM ---
- Subjective Subjective: Pt states he is doing better this morning. His at bedside reports that the swelling in his legs are much improved. - Objective MAR Reviewed: Yes Vital Signs & Weight: Vital Signs (12 hours) Temp Pulse Resp BP BP Pulse Ox 08/10/19 05:35 83 08/10/19 03:26 98.2 F 83 18 158/81 H 95 08/09/19 21:36 158/86 H Weight Admit Weight 78.925 kg Weight 88.768 kg I&O: 08/09/19 08/10/19 08/11/19 06:59 06:59 06:59 Intake Total 1323.2 2108 Output Total 800 2050 Balance 523.2 58 Result Diagrams: 08/10/19 08:18 08/10/19 08:17 Phys Exam - Physical Examination Constitutional: NAD HEENT: moist MMs Neck: no JVD, full ROM Respiratory: no wheezing, no rales Clear upper lobes, diminished lower lobes, no crackles Cardiovascular: RRR, no significant murmur Gastrointestinal: soft, non-tender, no distention, positive bowel sounds Musculoskeletal: edema present (2+ pitting edema to knee) Neurological: moves all 4 limbs Psychiatric: A&O x 3 Skin: cap refill <2 seconds Dx/Plan (1) Anasarca Code(s): R60.1 - GENERALIZED EDEMA Status: Acute (2) Congestive heart failure (CHF) Code(s): I50.9 - HEART FAILURE, UNSPECIFIED Status: Acute (3) Diabetes mellitus, type 2 Status: Chronic (4) Diabetic nephropathy Status: Chronic - Plan Plan: New onset mixed CHF NYHA Class 3B, AHA stage CHF -EF 30/35%, Grad 2/3 diastolic disfunction -Pt is currently on milrinone and dobutamine to optimize Cardiac oupt and aid with diuresis -Continuing coreg, isordil, hydralazine -Dr. Hollingsworth consulted -Lasix has been held to preserve renal function Anasarca 2/2 nephrotic syndrome 2/2 diabetic nephropathy, stable -Creatinine has stabilized at 3.5 -Dr. Israel has been consulted -No urgent need for dialysis at this time Bilateral plural effusions -Pulmonology consulted, will likely resolve with diuresis DM2 -Holding metformin -Continuing lantus and diabetic protocols per orders HTN -Controlled as above HLD -Continue home atorvastatin Addendum - Attending - Attending Attestation Date/Time: 08/10/191930 I personally evaluated the patient and discussed the management with Dr. Patel I agree with the History, Examination, Assessment and Plan documented above with any addition or exceptions noted below - Patient feeling better; SOB improved. Afebrile VSS. A/P: 1) HFrEF acute exacerbation - milrinone stopped due to renal dysfunction; continue current meds. appreciate cardiology recommendations. 2) BRYNN with CKD stage 4 - continue current meds; continue to monitor. 3) HTN- continue current meds.
[2019-08-10] MEDS: Ferrous Sulfate 325 MG TAB PO SCH (08:27)
[2019-08-10] MEDS: Aspirin 81 mg Enteric Coated Tablet PO SCH (08:27)
[2019-08-10] MEDS: Insulin Glargine 23 UNITS in Pre-Filled Syringe 1 EACH SC SCH (08:28)
[2019-08-10] MEDS: Carvedilol 6.25 MG TAB PO SCH ×2 (08:28→20:22)
[2019-08-10] MEDS: Isosorbide Dinitrate 20 MG TAB PO SCH ×3 (08:28→20:22)
[2019-08-10] MEDS: cloNIDine 0.2 MG TAB PO SCH ×3 (08:28→20:21)
[2019-08-10] MEDS: Heparin 5,000 UNITS/ML VIAL SC SCH ×3 (08:29→20:22)
[2019-08-10 08:41] LABS: #Basophils 0.1 thou/uL (0.0-0.2); #Eosinphils 0.4 thou/uL (0.0-0.7); #Lymphocytes 1.3 thou/uL (1.20-3.40); #Monocytes 0.9 thou/uL (0.11-0.59); #Neutrophils 4.7 thou/uL (1.40-6.50); %Basophils 0.8 % (0.0-1.0); %Eosinophils 5.5 % (0.0-10.0); %Lymphocytes 17.8 % (21.0-51.0); %Monocytes 12.6 % (0.0-10.0); %Neutrophils 63.4 % (42.0-75.0); Hemoglobin 9.1 g/dL (14.0-18.0); Mean Corpuscular HGB CONC 34.4 g/dL (32.0-36.0); Mean Corpuscular Hemoglobin 33.4 pg (27.0-31.0); Platelet Count 222 thou/uL (130-400); RBC Distribution Width 12.5 % (11.5-14.5); Red Blood Cell (RBC) Count 2.72 mill/uL (4.70-6.10); White Blood Cell (WBC) Count 7.5 thou/uL (4.8-10.8)
[2019-08-10] MEDS: Potassium Chloride 20 MEQ TAB PO SCH (08:44)
[2019-08-10 08:54] LABS: Anion Gap 13 mmol/L (10-20); BUN (Urea Nitrogen) 51 mg/dL (8.4-25.7); Calc. Creatinine Clearance 28 mL/min (70-130); Calcium 8.5 mg/dL (7.8-10.44); Carbon Dioxide 26 mmol/L (22-29); Chloride 100 mmol/L (98-107); Estimated GFR-MDRD 18; Glucose 145 mg/dL (70-105); Magnesium 2.4 mg/dL (1.6-2.6); Potassium 4.2 mmol/L (3.5-5.1); Sodium 135 mmol/L (136-145)
[2019-08-10] MEDS: Fluticasone Propionate Nasal Spray 16 gm Bottle NASAL SCH (08:59)
[2019-08-10] MEDS ORDERED: hydrALAZINE 25 MG TAB PO SCH (09:30)
--- NOTE | 2019-08-10 09:33 | PRG ---
DATE OF SERVICE: 08/10/2019 SERVICE: Renal Medicine. SUBJECTIVE: Mr. Mansfield is a 59-year-old white male, who was initially admitted for anasarca, cough. He was diuresed with improvement of the anasarca. During the initial workup, he was found to have a decreased EF. Cardiology is following. Currently, on IV dobutamine and IV milrinone to enhance cardiac status. Renal function has been stable, but is above baseline. No new complaints today. No chest pain. No shortness of breath. OBJECTIVE: VITAL SIGNS: Blood pressure 158/81, heart rate 83, respiratory rate 18, temperature 98.2, O2 saturation 95% on room air. GENERAL: Noted to be awake, alert, comfortable, not in overt distress. SKIN: Adequate turgor. HEENT: He has a pinkish conjunctivae. Anicteric sclerae. NECK: No neck mass. No carotid bruits. No JVD. CHEST: No deformities. LUNGS: Clear breath sounds. No wheezing. No crackles. HEART: Normal sinus rhythm. No murmur. No gallops. No rubs. ABDOMEN: Globular, soft, nontender. No masses. EXTREMITIES: No edema. No deformities. MEDICATIONS: Medications of August 10, 2019, were reviewed. LABORATORY DATA: Laboratories of August 09, 2019; white count 8.5, hemoglobin 9.2. August 10, 2019; sodium 133, potassium 4.1, chloride 102, carbon dioxide 23, BUN 51, creatinine 3.52, glucose 102, calcium 8.1. August 09, 2019, BNP 379. ASSESSMENT AND PLAN: 1. Acute kidney injury/chronic renal failure. The patient most likely has underlying diabetic nephropathy. The slightly higher creatinine may reflect a component of prerenal azotemia secondary to the previous diuretic regimen. In addition, the patient has diagnosis of congestive heart failure. Continue supportive care. There is no indication for any dialytic intervention. 2. Anasarca, clinically much improved. Off diuretics. We will discontinue potassium supplementation since the patient is off his diuretics. 3. Labile hypertension, stable. Currently, on p.o. medications. 4. Recheck CBC and basic metabolic profile in a.m. Job ID: [id number]
--- NOTE | 2019-08-10 10:55 | PRG ---
DATE OF SERVICE: 08/10/2019 SUBJECTIVE: This morning, he is awake, alert, and responsive. He is walking in the halls. OBJECTIVE: VITAL SIGNS: Temperature 97, pulse 83, blood pressure 120/85, and sats 100% on room air. CHEST: Decreased breath sounds bilaterally without any wheezing. CARDIAC: Normal S1 and S2. No gallops. ABDOMEN: No masses. IMPRESSION: Bilateral pleural effusion, congestive heart failure, cardiomyopathy, and renal failure. PLAN: Pulmonary antony he is stable. At this stage, no need for thoracentesis. Please call if needed. Continue aggressive cardiac care. Job ID: [id number]
--- NOTE | 2019-08-10 11:52 | PRG ---
DATE OF SERVICE: 08/10/2019 This is from [facility]. SUBJECTIVE: Mr. Kenji Mansfield said he had a pretty good day. He is breathing easy without too much problems. He is able to sleep nearly flat. However, he noticed that his legs are slightly heavier when he walks. Other than that, there are no significant differences. He did increase the amount of fluid intake because he wanted to make his kidneys better. REVIEW OF SYSTEMS: GENERAL: There is no fever, chills, or productive cough. HEENT: There is no change in his hearing, vision, or swallowing. PULMONARY: Please see HPI. CARDIAC: There is no palpitation, chest pain, or syncope. GI: He is eating well. : He is able to urinate. MUSCULOSKELETAL: There is no complaint of joint pains or muscle pains. INTEGUMENT: There are no new skin breakdowns. NEUROLOGIC: There are no complaints of new focal deficits or weaknesses. CARDIAC MEDICATIONS: 1. Aspirin 81 mg daily. 2. Atorvastatin 40 mg at bedtime. 3. Carvedilol 6.25 mg twice a day. 4. Clonidine 0.2 mg three times a day. 5. Dobutamine currently at 2.5 mcg/kg/minute. 6. Hydralazine 50 mg three times a day that has been increased. 7. Isosorbide dinitrate 20 mg at bedtime. 8. Milrinone at 0.125 mcg/kg/minute. Telemetry was reviewed. He is in sinus rhythm. There is no concerning arrhythmia occurring last 24 hours. PHYSICAL EXAMINATION: VITAL SIGNS: Heart rate 70 to 80s, blood pressure 130/69 and then second measurement 157/75. This is different than what was documented in the computer system. GENERAL: He is alert and conversational, relaxed. There is no acute distress. HEENT: Show EOMI. Oropharynx is benign with moist mucosa. NECK: JVP little bit more elevated today at 12 cm. PULMONARY: There is good air movement in bilateral upper lung peralta; however, there is also near absence of breath sounds at bilateral bases. Overall, his lung sounds have been improving. CARDIAC: Regular rate and rhythm with 2/6 holosystolic murmur best heard near the left axilla that is where his mitral regurgitation sits. He also has 1/6 diastolic murmur at the right lower sternal border corresponding to aortic regurgitation. ABDOMEN: Soft, nontender. Positive bowel sounds. EXTREMITIES: Lower extremity edema, it is about 0.75 cm pitting edema from feet about 3/[address] way up towards the knee, so he has a little bit more increased edema since yesterday. LABORATORY VALUES: Sodium 135, potassium 4.2, BUN 51, creatinine 3.54, this is a little bit worse than yesterday. His BNP is decreased a bit to 347.8. ASSESSMENT: 59-year-old gentleman resides in [place] Heart Association stage C, also [place] Heart Association class III heart failure with reduced ejection fraction. The cause of heart failure is unknown. He actually needs a coronary angiogram to decipher this. However, with creatinine at 3.54, this is not possible without completely run his kidneys. He also has intrinsic renal disease. On top of that, he also has a left renal artery stenosis, which drives his [id number] hypertension. Adding low-dose milrinone 0.125 mcg/kg per minute did not have a very much effect at all. It is still too low dose to be effective; however, with the renal dysfunction, it will need to be titrated off. Apparently, Lasix 40 mg p.o. also did not quite work. With his edema, creatinine is already at 3.5, he will likely need higher dose of IV Lasix if effective diuresis contemplated. I see that his hydralazine has been increased to 50 mg three times a day. I will work with this. Please see the following for my recommendations. RECOMMENDATIONS: 1. Stop Milrinone. The renal function is too bad. 2. Increase dobutamine to 5 mcg/kg/minute. The rationale is trying to perfuse kidneys. 3. I will speak to Dr. Israel and rest of the team about converting to just once a day IV diuretic starting tomorrow. 4. Ask the patient not to drink too much fluid today. Reduce his fluid restriction to 1.8 L per day. It has been a pleasure taking care of Mr. Kenji Mansfield. If any question, please give me a call. Job ID: [id number] [facility]
[2019-08-10] MEDS: Atorvastatin Calcium 40 MG TAB PO SCH (20:22)
[2019-08-11 04:11] LABS: #Eosinphils 0.5 thou/uL (0.0-0.7); #Lymphocytes 1.3 thou/uL (1.20-3.40); #Monocytes 1.1 thou/uL (0.11-0.59); #Neutrophils 4.3 thou/uL (1.40-6.50); %Basophils 0.6 % (0.0-1.0); %Eosinophils 6.3 % (0.0-10.0); %Lymphocytes 18.2 % (21.0-51.0); %Monocytes 14.7 % (0.0-10.0); %Neutrophils 60.2 % (42.0-75.0); Hemoglobin 8.5 g/dL (14.0-18.0); Mean Corpuscular HGB CONC 34.2 g/dL (32.0-36.0); Mean Corpuscular Hemoglobin 33.3 pg (27.0-31.0); Mean Corpuscular Volume 97.4 fL (78.0-98.0); Mean Platelet Volume 7.4 fL (7.4-10.4); Platelet Count 230 thou/uL (130-400); RBC Distribution Width 12.5 % (11.5-14.5); Red Blood Cell (RBC) Count 2.56 mill/uL (4.70-6.10); White Blood Cell (WBC) Count 7.1 thou/uL (4.8-10.8)
[2019-08-11 04:33] LABS: Anion Gap 12 mmol/L (10-20); BUN (Urea Nitrogen) 48 mg/dL (8.4-25.7); Calc. Creatinine Clearance 30 mL/min (70-130); Calcium 8.2 mg/dL (7.8-10.44); Carbon Dioxide 24 mmol/L (22-29); Chloride 103 mmol/L (98-107); Estimated GFR-MDRD 19; Glucose 98 mg/dL (70-105); Potassium 3.8 mmol/L (3.5-5.1); Sodium 135 mmol/L (136-145)
[2019-08-11] MEDS: DOBUTamine 500 mg/250 ml 500 MG in Premix Bag 1 BAG IVPB SCH ×2 (05:35→23:50)
[2019-08-11] MEDS: hydrALAZINE 25 MG TAB PO SCH ×3 (05:35→21:10)
--- NOTE | 2019-08-11 07:04 | PDOC.FM ---
- Subjective Subjective: Pt reports no events overnight. He states he is breathing ok today. He denies chest pain, nausea, or vomiting. He reports the swelling is about the same in his lower extremities. - Objective MAR Reviewed: Yes Vital Signs & Weight: Vital Signs (12 hours) Temp Pulse Resp BP Pulse Ox 08/11/19 06:43 93 L 08/11/19 03:53 98.2 F 77 18 169/86 H 93 L 08/10/19 20:22 83 08/10/19 20:20 94 L 08/10/19 20:18 98.2 F 83 16 170/82 H 94 L Weight Admit Weight 78.925 kg Weight 87.997 kg I&O: 08/10/19 08/11/19 08/12/19 06:59 06:59 06:59 Intake Total 2107 1995 Output Total 2049 125 Balance 58 746 Result Diagrams: 08/13/19 04:19 08/13/19 04:19 Phys Exam - Physical Examination Constitutional: NAD HEENT: moist MMs Neck: no JVD Respiratory: no wheezing mild basilar crackles Cardiovascular: RRR, no significant murmur Gastrointestinal: soft, non-tender, no distention, positive bowel sounds Musculoskeletal: edema present Neurological: moves all 4 limbs Psychiatric: A&O x 3 Skin: cap refill <2 seconds Dx/Plan (1) Anasarca Code(s): R60.1 - GENERALIZED EDEMA Status: Acute (2) Congestive heart failure (CHF) Code(s): I50.9 - HEART FAILURE, UNSPECIFIED Status: Acute (3) Diabetes mellitus, type 2 Status: Chronic (4) Diabetic nephropathy Status: Chronic - Plan Plan: New onset mixed CHF NYHA Class 3B, AHA stage CHF -EF 30/35%, Grad 2/3 diastolic disfunction -Pt is currently on dobutamine to optimize Cardiac oupt and aid with diuresis -Continuing coreg, isordil, hydralazine -Dr. Hollingsworth consulted -Lasix has been held to preserve renal function Anasarca 2/2 nephrotic syndrome 2/2 diabetic nephropathy, stable -Creatinine has stabilized at 3.5 -Dr. Israel has been consulted -No urgent need for dialysis at this time -Mild serial improvement in renal function Bilateral plural effusions -Pulmonology consulted, will likely resolve with diuresis DM2 -Holding metformin -Continuing lantus and diabetic protocols per orders HTN -Controlled as above HLD -Continue home atorvastatin Addendum - Attending - Attending Attestation Date/Time: 08/13/192057 I personally evaluated the patient and discussed the management with Dr. Patel on 08/11/19 I agree with the History, Examination, Assessment and Plan documented above with any addition or exceptions noted below - Patient feeling a little better; SOB improved. Afebrile VSS. A/P: 1) Combined systolic and diastolic heart failure- continue meds as per Dr. Hollingsworth. 2) CKD- Cr has stabilized but unable to use diurectics. 3) DM- BG stable; continue current meds.
[2019-08-11] MEDS: Carvedilol 6.25 MG TAB PO SCH ×2 (08:22→21:09)
[2019-08-11] MEDS: Ferrous Sulfate 325 MG TAB PO SCH (08:22)
[2019-08-11] MEDS: Aspirin 81 mg Enteric Coated Tablet PO SCH (08:22)
[2019-08-11] MEDS: Heparin 5,000 UNITS/ML VIAL SC SCH ×3 (08:23→21:10)
[2019-08-11] MEDS: Insulin Glargine 23 UNITS in Pre-Filled Syringe 1 EACH SC SCH (08:23)
[2019-08-11] MEDS: cloNIDine 0.2 MG TAB PO SCH ×3 (08:23→21:09)
[2019-08-11] MEDS: Isosorbide Dinitrate 20 MG TAB PO SCH (08:23)
[2019-08-11] MEDS: Fluticasone Propionate Nasal Spray 16 gm Bottle NASAL SCH (08:24)
--- NOTE | 2019-08-11 08:34 | PRG ---
DATE OF SERVICE: 08/11/2019 SUBJECTIVE: Mr. Mansfield is a 59-year-old white male, followed by the Renal Service for his acute kidney injury on top of his chronic renal failure. He was initially admitted for anasarca/CHF. Cardiac echo was done, which showed decreased EF. Cardiology is following this patient. He has been tried on milrinone and IV dobutamine. Renal function is relatively stable. Diuretics currently on hold due to the worsening renal dysfunction in the last few days. He also has on Doppler, suggestive of possible renal artery stenosis. He voices no new complaints. He denies any chest pain or shortness of breath today. OBJECTIVE: VITAL SIGNS: Blood pressure is 169/86, heart rate 77, respiratory rate 18, temperature 98.2, and O2 saturation 93%. GENERAL: Noted to be awake, alert, sitting comfortable, not in distress. SKIN: Adequate turgor. HEENT: He has pinkish conjunctivae. Anicteric sclerae. NECK: No neck mass. No carotid bruits. No JVD. CHEST: No deformities. LUNGS: Clear breath sounds. HEART: Normal sinus rhythm. No murmur. No gallops. No rubs. ABDOMEN: Globular, soft, and nontender. No masses. EXTREMITIES: No edema. No deformities. MEDICATIONS: Medications of August 11, 2019, reviewed. LABORATORY DATA: Laboratories of August 11, 2019; sodium 135, potassium 3.8, chloride 103, carbon dioxide 24, BUN 48, creatinine 3.3, GFR 19 mL/minute, glucose 98, and calcium 8.2. ASSESSMENT AND PLAN: 1. Acute kidney injury/chronic renal failure - superimposed prerenal azotemia on top of his diabetic nephropathy. Renal function is stabilizing. Currently, diuretics on hold. We will continue to hold diuretics. We can probably resume this as an outpatient. 2. Congestive heart failure - cardiac echo showed decreased ejection fraction. Unable to proceed with cardiac cath due to the renal dysfunction. Cardiology is following. 3. Labile hypertension - much improved. Currently, we will continue current BP medications. There is no indication for any dialytic intervention with this patient. Overall, agree with current management. Job ID: [id number]
[2019-08-11] MEDS ORDERED: hydrALAZINE 25 MG TAB PO SCH (10:00)
[2019-08-11 10:04] LABS: #Eosinphils 0.3 thou/uL (0.0-0.7); #Lymphocytes 1.1 thou/uL (1.20-3.40); #Monocytes 0.7 thou/uL (0.11-0.59); #Neutrophils 4.8 thou/uL (1.40-6.50); %Basophils 0.7 % (0.0-1.0); %Eosinophils 4.2 % (0.0-10.0); %Lymphocytes 15.8 % (21.0-51.0); %Monocytes 10.2 % (0.0-10.0); %Neutrophils 69.1 % (42.0-75.0); Hemoglobin 8.7 g/dL (14.0-18.0); Mean Corpuscular HGB CONC 33.9 g/dL (32.0-36.0); Mean Corpuscular Hemoglobin 33.1 pg (27.0-31.0); Mean Corpuscular Volume 97.5 fL (78.0-98.0); Mean Platelet Volume 7.6 fL (7.4-10.4); Platelet Count 249 thou/uL (130-400); RBC Distribution Width 12.5 % (11.5-14.5); Red Blood Cell (RBC) Count 2.63 mill/uL (4.70-6.10); White Blood Cell (WBC) Count 6.9 thou/uL (4.8-10.8)
[2019-08-11 10:27] LABS: Anion Gap 11 mmol/L (10-20); BUN (Urea Nitrogen) 47 mg/dL (8.4-25.7); Calc. Creatinine Clearance 30 mL/min (70-130); Calcium 8.2 mg/dL (7.8-10.44); Carbon Dioxide 26 mmol/L (22-29); Chloride 102 mmol/L (98-107); Estimated GFR-MDRD 19; Glucose 182 mg/dL (70-105); Magnesium 2.3 mg/dL (1.6-2.6); Potassium 3.9 mmol/L (3.5-5.1); Sodium 135 mmol/L (136-145)
[2019-08-11 13:49] VITALS: BMI 24.2
--- NOTE | 2019-08-11 14:51 | PRG ---
DATE OF SERVICE: 08/11/2019 This is from [facility]. SUBJECTIVE: Mr. Mansfield had a good day. He did not have any pronounced shortness of breath. He felt good. He has good energy level. He was able to ambulate twice. He had a tolerable night of sleep. He is able to lay nearly flat to sleep without PND. His systolic blood pressure still remains high at around 160s with a combination of dobutamine of 5 mcg/kg/minute and hydralazine 50 three times a day along with isosorbide dinitrate at 20 mg three times a day. Without diuretics, he did not gain much fluid yesterday, that he felt. REVIEW OF SYSTEMS: GENERAL: There is no fever, chills, or productive cough. HEENT: There is no change in vision, hearing, or swallowing. PULMONARY: Please see HPI. CARDIAC: There is no chest pain, palpitations, or syncope. GI: He is able to eat well with no nausea or vomiting. DE: He is urinating well. MUSCULOSKELETAL: There are no new complaints of joint pains or muscle pains. INTEGUMENT: There is no skin breakdown. NEUROLOGIC: There are no new focal deficits or weaknesses. PSYCHIATRIC: There are no complaints of being depressed. MEDICATIONS: His current cardiac medications include; 1. Aspirin 81 mg daily. 2. Atorvastatin 40 mg at bedtime. 3. Clonidine 0.2 mg three times per day. 4. Dobutamine 5 mcg/kg/minute. 5. Hydralazine 50 mg q.8 hours. 6. Isosorbide dinitrate 20 mg t.i.d. DIAGNOSTIC STUDIES: Telemetry is reviewed. He is in sinus rhythm. There is occasional PVC. There is no concerning arrhythmia. PHYSICAL EXAMINATION: VITAL SIGNS: Latest vitals are heart rate 86, blood pressure 163/79. His oxygen saturation only down to about 91% on room air; with 2 L, oxygen saturation goes to 95%. GENERAL: He is alert, conversational, sitting comfortably in bed. HEENT: Show EOMI with moist oral mucosa. NECK: His JVP about 10 to 11 cm. LUNGS: Good air movement, still diminished breath sounds at the bases, and left basilar crackles, is not as bad as yesterday, perhaps slightly better. CARDIAC: Regular rate and rhythm with normal S1 and S2. There is 2/6 holosystolic murmur at the apex with radiation to the left axilla. There is also 1/6 diastolic murmur at the right lower sternal border. Consequently, he has both mitral regurgitation and aortic regurgitation. ABDOMEN: Slightly distended, soft, nontender. Positive bowel sounds. EXTREMITIES: His lower extremity has about 0.5 cm pitting edema from his feet to 2/3 way up toward knees, does not change since yesterday. Positive dorsalis pedis pulses bilaterally. LABORATORY DATA: The laboratory values consist of sodium 135, potassium 3.8, BUN 48, and creatinine 3.3, so this is an improvement from yesterday. His BUN has decreased and creatinine has decreased, increasing the dobutamine is having an effect, although slow. ASSESSMENT: 59-year-old gentleman likely to reside in [place] Heart Association stage C and [place] Heart Association class IIIB heart failure with reduced ejection fraction. The EF is 35% with a combination of systolic and diastolic dysfunctions. He also has intrinsic renal disease and nephrotic syndrome. He also has likely left renal artery stenosis, this is causing difficult-to- control hypertension. This combination makes his treatment very difficult. It is good that we finally achieved positive results with decreasing creatinine by dobutamine at 5 mcg/kg per minute. We will have to use alternate strategy to look for evidence of ischemia. If there is evidence of ischemia then we will change his management significantly. Please see the following for detailed recommendations. RECOMMENDATIONS: 1. Continue dobutamine 5 mcg/kg/minute. 2. Please set up the patient for Lexiscan, that is going to be a regadenoson stress test. Consequently, he will need to be off caffeine and also off isosorbide dinitrate for 24 hours before the event. 3. Increase hydralazine to 75 mg p.o. q.8 hours. 4. Please consider not to give any more diuretics at least for 1 day or more to allow the renal function to recover better. 5. Please do overnight oxygen saturation study to see how low he goes without oxygen. 6. Please provide oxygen supplement to keep the oxygen saturation above 95%. 7. Please consolidate to one lab draw in the morning, not two. The lab draw to get CBC, BMP, magnesium, and BNP. It has been a pleasure taking care of Mr. Kenji Mansfield. If any questions, please give me a call. Job ID: [id number] [facility]TDD
[2019-08-11] MEDS: Atorvastatin Calcium 40 MG TAB PO SCH (21:09)
[2019-08-12 04:38] LABS: #Basophils 0.1 thou/uL (0.0-0.2); #Eosinphils 0.2 thou/uL (0.0-0.7); #Lymphocytes 1.2 thou/uL (1.20-3.40); #Neutrophils 4.8 thou/uL (1.40-6.50); %Basophils 0.7 % (0.0-1.0); %Eosinophils 3.4 % (0.0-10.0); %Lymphocytes 16.9 % (21.0-51.0); %Monocytes 13.5 % (0.0-10.0); %Neutrophils 65.5 % (42.0-75.0); Hemoglobin 9.3 g/dL (14.0-18.0); Mean Corpuscular HGB CONC 33.1 g/dL (32.0-36.0); Mean Corpuscular Hemoglobin 32.4 pg (27.0-31.0); Mean Corpuscular Volume 97.9 fL (78.0-98.0); Mean Platelet Volume 7.4 fL (7.4-10.4); Platelet Count 274 thou/uL (130-400); RBC Distribution Width 12.5 % (11.5-14.5); Red Blood Cell (RBC) Count 2.87 mill/uL (4.70-6.10); White Blood Cell (WBC) Count 7.3 thou/uL (4.8-10.8)
[2019-08-12 04:51] LABS: Anion Gap 13 mmol/L (10-20); BUN (Urea Nitrogen) 45 mg/dL (8.4-25.7); Calc. Creatinine Clearance 32 mL/min (70-130); Calcium 8.4 mg/dL (7.8-10.44); Carbon Dioxide 22 mmol/L (22-29); Chloride 105 mmol/L (98-107); Estimated GFR-MDRD 20; Glucose 121 mg/dL (70-105); Magnesium 2.2 mg/dL (1.6-2.6); Potassium 3.9 mmol/L (3.5-5.1); Sodium 136 mmol/L (136-145)
[2019-08-12] MEDS: hydrALAZINE 25 MG TAB PO SCH ×3 (05:23→20:48)
--- NOTE | 2019-08-12 08:29 | PRG ---
DATE OF SERVICE: 08/12/2019 SUBJECTIVE: Mr. Mansfield is a 59-year-old white male, initially admitted for anasarca/CHF and seen by the Renal Service for his acute kidney injury/chronic renal failure. He has underlying diabetic nephropathy. He has also nephrotic syndrome. During the initial workup, he was found to have a decreased EF. Cardiology is following. He has been started on IV dobutamine. Due to the decreased EF, a cardiac stress test will be done. The cardiac catheterization is currently on hold due to his chronic renal failure. He voices no new complaints today. During the last several days, his creatinine was noted to have worsened, and for that reason, we have held off his furosemide temporarily. OBJECTIVE: VITAL SIGNS: Blood pressure is 174/87, heart rate 81, respiratory rate 18, temperature 98.6, O2 saturation 94%. GENERAL: Noted to be awake, alert, comfortable, not in overt distress. SKIN: Adequate turgor. HEENT: He has a slightly pale conjunctivae. Anicteric sclerae. No neck mass. No carotid bruits. No JVD. CHEST: No deformities. LUNGS: Clear breath sounds. No wheezing. No crackles. HEART: Normal sinus rhythm. No murmurs. No gallops. No rubs. ABDOMEN: Globular, soft, nontender. No masses. EXTREMITIES: Trace edema. MEDICATIONS: Medications of August 12, 2019, reviewed. LABORATORY DATA: Laboratories of August 12, 2019; white count 7.3, hemoglobin 9.3. Sodium 136, potassium 3.9, chloride 105, carbon dioxide 22, BUN 45, creatinine 3.14, GFR 20 mL/minute, glucose 121, calcium 8.4, magnesium 2.2. BNP is 809.9. ASSESSMENT AND PLAN: 1. Acute kidney injury/chronic renal failure, superimposed prerenal azotemia. Currently, stabilizing renal function. He has underlying chronic renal failure from diabetic nephropathy. Continue supportive care. No indication for any dialytic intervention. 2. Congestive heart failure/decreased EF - currently on IV dobutamine. The patient is currently scheduled for cardiac stress test. We will re-evaluate for possible initiation of furosemide. The patient denies any shortness of breath today. We will recheck another basic metabolic in a.m. Job ID: [id number]
[2019-08-12] MEDS ORDERED: Regadenoson 0.4 MG/5 ML SYRINGE ONE (09:24)
[2019-08-12] MEDS: Ondansetron PF 4 MG/2 ML Vial IVP PRN (09:44)
--- NOTE | 2019-08-12 11:43 | PRG ---
DATE OF SERVICE: 08/12/2019 SUBJECTIVE: Mr. Kenji Mansfield had a variable day. He was able to walk. However, he had a bout of nausea, vomiting early this morning. He did not take much fluid because he is on n.p.o. His blood pressure increased significantly since the isosorbide dinitrate was kept off for his stress test. REVIEW OF SYSTEMS: GENERAL: There is no fever, chills, or productive cough. HEENT: There is no change in vision, hearing, or swallowing. PULMONARY: He is breathing easily. CARDIAC: There is no chest pain, palpitations or syncope. GI: Please see HPI. : He is urinating well, but then his amount of urine output has decreased because he has not been drinking, that is what he says. MUSCULOSKELETAL: There are no joint pains or muscular pains. INTEGUMENT: There is no new skin breakdown. NEUROLOGIC: He did not report any focal deficits or weaknesses. PSYCHIATRIC: He is not complaining of depression. MEDICATIONS: His cardiac medications include 1. Aspirin 81 mg daily. 2. Atorvastatin 40 mg at bedtime. 3. Carvedilol at 6.25 mg b.i.d. 4. Clonidine 0.2 mg t.i.d. 5. Hydralazine currently at 75 mg p.o. q.8 hours. 6. Dobutamine at 5 mcg/kg/minute. OBJECTIVE: VITAL SIGNS: Right now heart rate 96, blood pressure 173/84. He is hypertensive due to isosorbide dinitrate being held for his stress test. His I's and O's is even. He is net positive 36 mL. GENERAL: He is alert and conversational, sitting comfortably in a wheelchair. He is about to be transported downstairs for regadenosine stress nuclear perfusion scan. HEENT: Show EOMI. Oropharynx is benign with moist mucosa. NECK: His JVP is still about 11 cm. PULMONARY: There is good air movement bilaterally. However, he still has decreased breath bibasilarly with a little bit more crackles on the left than right. CARDIAC: Regular rate and rhythm with 2/6 holosystolic murmur at the apex with radiation to the left axilla. There is also 1/6 diastolic murmur at the right lower sternal border. ABDOMEN: Soft, nontender. Positive bowel sounds. EXTREMITIES: His lower extremity has 0.5 pitting edema from feet only up to about assisted between his feet and knees, so this is an improvement. LABORATORY DATA: Sodium 136, potassium 3.9, BUN 45, creatinine 3.14, this has again improved. However, his BNP increased to 809. This is mostly likely due to him being hypertensive with cessation temporarily of isosorbide dinitrate. ASSESSMENT: 59-year-old gentleman likely to reside in [place] Heart Association stage C, also [place] Heart Association class IIIB heart failure with reduced ejection fraction. The EF is 35% with combination of systolic and diastolic dysfunctions. He has intrinsic renal disease and nephrotic syndrome. He also has a left renal artery stenosis causing [id number] hypertension. This combination makes his treatment difficult. Currently, we still need an answer for why his ejection fraction went down to 35%. For now, dobutamine alone seem to be working very well. His kidneys are improving. In fact, he is able to stay even without needing of diuretics with dobutamine on board. Perhaps, we can continue this to clear out his kidney. For now, we will look for evidence of a significant coronary artery disease. However, since this is only regadenoson perfusion scan there could be balanced ischemia that could be missed. Please see the follow for my recommendations. RECOMMENDATIONS: 1. Continue dobutamine at 5 mcg/kg per minute. 2. Proceed on regadenoson perfusion scan to see if there is significant coronary artery disease. If there is, then we will need to plan on coronary angiogram in the near future. 3. When the patient comes back from stress test, we will need to restart isosorbide dinitrate. 4. We will look at overnight oxygenation study to see how much he desaturated being off oxygen. 5. Depending on the results of the stress test, it will change the overall direction. It has been a pleasure taking care of Mr. Mansfield. If any questions, please give me a call. Job ID: [id number] [facility]
--- NOTE | 2019-08-12 13:04 | PDOC.FM ---
- Subjective Subjective: NAOE. resting in bed. - Objective MAR Reviewed: Yes Vital Signs & Weight: Vital Signs (12 hours) Temp Pulse Resp BP Pulse Ox 08/12/19 07:50 97.7 F 85 173/84 H 96 08/12/19 07:04 94 L 08/12/19 03:35 98.6 F 81 18 174/87 H 94 L Weight Admit Weight 78.925 kg Weight 87.135 kg I&O: 08/11/19 08/12/19 08/13/19 06:59 06:59 06:59 Intake Total 1995 123 Output Total 1250 1200 Balance 746 36 Result Diagrams: 08/12/19 04:12 08/12/19 04:11 Phys Exam - Physical Examination Constitutional: NAD HEENT: moist MMs Neck: no JVD Respiratory: no wheezing basilar crackles, no respiratory distress Cardiovascular: RRR, no significant murmur Gastrointestinal: soft, non-tender, no distention, positive bowel sounds Musculoskeletal: pulses present, edema present (2+ pitting edema to knee) Neurological: moves all 4 limbs Psychiatric: A&O x 3 Skin: cap refill <2 seconds Dx/Plan (1) Anasarca Code(s): R60.1 - GENERALIZED EDEMA Status: Acute (2) Congestive heart failure (CHF) Code(s): I50.9 - HEART FAILURE, UNSPECIFIED Status: Acute (3) Diabetes mellitus, type 2 Status: Chronic (4) Diabetic nephropathy Status: Chronic - Plan Plan: New onset mixed CHF NYHA Class 3B, AHA stage CHF -EF 30/35%, Grad 2/3 diastolic disfunction -Pt is currently on dobutamine to optimize Cardiac oupt and aid with diuresis -Continuing coreg, isordil, hydralazine -Dr. Hollingsworth consulted -Lasix has been held to preserve renal function -Plan for stress test today Anasarca 2/2 nephrotic syndrome 2/2 diabetic nephropathy, stable -Creatinine has stabilized at 3.5 -Dr. Israel has been consulted -No urgent need for dialysis at this time -Mild serial improvement in renal function Bilateral plural effusions -Pulmonology consulted, will likely resolve with diuresis DM2 -Holding metformin -Continuing lantus and diabetic protocols per orders HTN -Controlled as above HLD -Continue home atorvastatin Addendum - Attending - Attending Attestation Date/Time: 08/12/19 9955 I personally evaluated the patient and discussed the management with Dr. Patel. I agree with the History, Examination, Assessment and Plan documented above with any addition or exceptions noted below. patient seen in stress lab. no complaints awaiting results of stress test and specialist recs.
[2019-08-12] MEDS: Ferrous Sulfate 325 MG TAB PO SCH (14:26)
[2019-08-12] MEDS: Aspirin 81 mg Enteric Coated Tablet PO SCH (14:26)
[2019-08-12] MEDS: cloNIDine 0.2 MG TAB PO SCH ×3 (14:26→20:47)
[2019-08-12] MEDS: Fluticasone Propionate Nasal Spray 16 gm Bottle NASAL SCH (14:26)
[2019-08-12] MEDS: Heparin 5,000 UNITS/ML VIAL SC SCH ×3 (14:26→20:47)
[2019-08-12] MEDS: Carvedilol 6.25 MG TAB PO SCH ×2 (14:26→20:47)
[2019-08-12] MEDS: Insulin Glargine 23 UNITS in Pre-Filled Syringe 1 EACH SC SCH (14:26)
--- NOTE | 2019-08-12 15:02 | NM ---
CARDIAC SPECT: HISTORY: A 59-year-old male with CHF, cardiomyopathy, hypertension, diabetes, dyslipidemia, smoker. TECHNIQUE: A myocardial perfusion scan was performed using the single-isotope 1-day protocol with Technetium 99m sestamibi. Ten mCi were injected intravenously for the rest exam followed by 33 mCi for the stress study. Pharmacologic stress with LexiScan was monitored and interpreted by Dr. Lee. FINDINGS: There is a full-thickness large fixed defect in the inferior wall and a small partial-thickness fixed defect in the distal anteroseptal wall. GATED SPECT LVEF: 46%. WALL MOTION EXAM: Inferior wall hypokinesis. IMPRESSION: No evidence of reversible ischemia. POS: [facility]
[2019-08-12] MEDS ORDERED: Isosorbide Dinitrate 5 MG TAB PO SCH (16:00)
[2019-08-12] MEDS: Atorvastatin Calcium 40 MG TAB PO SCH (20:47)
[2019-08-12] MEDS: Isosorbide Dinitrate 5 MG TAB PO SCH (20:48)
[2019-08-13] MEDS: DOBUTamine 500 mg/250 ml 500 MG in Premix Bag 1 BAG IVPB SCH (00:02)
[2019-08-13 04:47] LABS: #Basophils 0.1 thou/uL (0.0-0.2); #Eosinphils 0.2 thou/uL (0.0-0.7); #Lymphocytes 1.5 thou/uL (1.20-3.40); #Monocytes 1.1 thou/uL (0.11-0.59); #Neutrophils 5.1 thou/uL (1.40-6.50); %Eosinophils 2.6 % (0.0-10.0); %Lymphocytes 18.1 % (21.0-51.0); %Monocytes 14.2 % (0.0-10.0); %Neutrophils 64.2 % (42.0-75.0); Hemoglobin 9.1 g/dL (14.0-18.0); Mean Corpuscular HGB CONC 33.5 g/dL (32.0-36.0); Mean Corpuscular Hemoglobin 32.6 pg (27.0-31.0); Mean Corpuscular Volume 97.6 fL (78.0-98.0); Mean Platelet Volume 7.2 fL (7.4-10.4); Platelet Count 285 thou/uL (130-400); RBC Distribution Width 12.3 % (11.5-14.5); Red Blood Cell (RBC) Count 2.78 mill/uL (4.70-6.10)
[2019-08-13 05:07] LABS: Anion Gap 13 mmol/L (10-20); BUN (Urea Nitrogen) 51 mg/dL (8.4-25.7); Calc. Creatinine Clearance 30 mL/min (70-130); Calcium 8.2 mg/dL (7.8-10.44); Carbon Dioxide 23 mmol/L (22-29); Chloride 102 mmol/L (98-107); Estimated GFR-MDRD 19; Glucose 135 mg/dL (70-105); Magnesium 2.4 mg/dL (1.6-2.6); Sodium 134 mmol/L (136-145)
[2019-08-13] MEDS: hydrALAZINE 25 MG TAB PO SCH (05:38)
--- NOTE | 2019-08-13 08:38 | PRG ---
DATE OF SERVICE: 08/13/2019 SUBJECTIVE: Mr. Mansfield is a 59-year-old white male, he was being followed up by the Renal Service for his chronic renal failure/acute kidney injury. He has underlying diabetic nephropathy. Stress test was done yesterday, which showed no acute ischemia. He has been seen by Cardiology due to his CHF. Consideration for tapering off the IV dobutamine is being made, so this patient can be discharged. He voices no new complaints today. OBJECTIVE: VITAL SIGNS: Blood pressure is 165/81, heart rate 86, respiratory rate 16, temperature 98.1, O2 saturation is 94%, GENERAL: The patient is awake, alert, comfortable, not in distress. SKIN: Adequate turgor. HEENT: Slightly pale conjunctivae. Anicteric sclerae. No neck mass. No carotid bruits. No JVD. CHEST: No deformities. LUNGS: Clear breath sounds. HEART: Normal sinus rhythm. No murmur. No gallops. No rubs. ABDOMEN: Globular. Soft. Nontender. No masses. EXTREMITIES: No edema. No deformities. MEDICATIONS: Medications of August 13, 2019, reviewed. LABORATORY DATA: August 13, 2019, white count 8, hemoglobin 9.1, hematocrit 27.1. Sodium 134, potassium 4, chloride 102, carbon dioxide 23, BUN 51, creatinine 3.29, glucose 135, calcium 8.2, magnesium 2.4. BNP is 791. ASSESSMENT AND PLAN: 1. Chronic renal failure/acute kidney injury - stable renal function. The patient has underlying diabetic nephropathy. Continue supportive care. Still holding diuretics for the moment. 2. Congestive heart failure. Currently, on IV dobutamine. Consideration for tapering this off is being considered. Please note, he did undergo cardiac stress test, which showed no active ischemia. 3. Anasarca, much improved. Continue supportive care. In the near future we are considering placing him on maintenance Lasix at 40 mg tablet once a day. 4. Agree with current management. Job ID: [id number] [facility]
[2019-08-13] MEDS: Ondansetron PF 4 MG/2 ML Vial IVP PRN (08:47)
--- NOTE | 2019-08-13 09:37 | PDOC.FM ---
- Subjective Subjective: Pt states he has been feeling nauseated this morning. Originally he was refusing medications, but he states he was willing to try the medication. - Objective MAR Reviewed: Yes Vital Signs & Weight: Vital Signs (12 hours) Temp Pulse Resp BP Pulse Ox 08/13/19 08:56 98.0 F 86 18 172/81 H 92 L 08/13/19 03:53 98.1 F 86 16 165/81 H 94 L Weight Admit Weight 78.925 kg Weight 87.543 kg I&O: 08/12/19 08/13/19 08/14/19 06:59 06:59 06:59 Intake Total 1236 940 Output Total 1200 Balance 36 940 Result Diagrams: 08/13/19 04:19 08/13/19 04:19 Phys Exam - Physical Examination Constitutional: NAD HEENT: moist MMs Neck: no JVD Respiratory: no wheezing mild crackles in bases, improved Cardiovascular: RRR, no significant murmur Gastrointestinal: soft, non-tender, no distention, positive bowel sounds Musculoskeletal: pulses present, edema present (2+ to knees) Neurological: moves all 4 limbs Psychiatric: A&O x 3 Skin: cap refill <2 seconds Dx/Plan (1) Anasarca Code(s): R60.1 - GENERALIZED EDEMA Status: Acute (2) Congestive heart failure (CHF) Code(s): I50.9 - HEART FAILURE, UNSPECIFIED Status: Acute (3) Diabetes mellitus, type 2 Status: Chronic (4) Diabetic nephropathy Status: Chronic - Plan Plan: New onset mixed CHF NYHA Class 3B, AHA stage CHF -EF 30/35%, Grad 2/3 diastolic disfunction -Pt is currently on dobutamine to optimize Cardiac oupt and aid with diuresis -Continuing coreg, isordil, hydralazine -Dr. Hollingsworth consulted -Lasix has been held to preserve renal function -Stress test negative Anasarca 2/2 nephrotic syndrome 2/2 diabetic nephropathy, stable -Creatinine has stabilized at 3.5 -Dr. Israel has been consulted -No urgent need for dialysis at this time -Mild serial improvement in renal function Bilateral plural effusions -Pulmonology consulted, will likely resolve with diuresis DM2 -Holding metformin -Continuing lantus and diabetic protocols per orders HTN -Controlled as above HLD -Continue home atorvastatin Addendum - Attending - Attending Attestation Date/Time: 08/13/192101 I personally evaluated the patient and discussed the management with Dr. Patel I agree with the History, Examination, Assessment and Plan documented above with any addition or exceptions noted below- Feeling a little better after anti -nausea meds. Afebrile VSS. A/P: 1) Combined heart failure- continue dobutamine ; awaiting further recommendations from cardiology; patient reports may be ransferred to [place] for further testing. 2) CKD- Cr. slightly worse today. Continue to monitor. 3) DM- stable.
[2019-08-13] MEDS ORDERED: DOBUTamine 500 mg/250 ml 500 MG in Premix Bag 1 BAG IVPB SCH (10:00)
[2019-08-13] MEDS: Isosorbide Dinitrate 5 MG TAB PO SCH (10:04)
[2019-08-13] MEDS: Ferrous Sulfate 325 MG TAB PO SCH (10:05)
[2019-08-13] MEDS: cloNIDine 0.2 MG TAB PO SCH ×2 (10:05→14:48)
[2019-08-13] MEDS: Carvedilol 6.25 MG TAB PO SCH (10:06)
[2019-08-13] MEDS: Aspirin 81 mg Enteric Coated Tablet PO SCH (10:06)
[2019-08-13] MEDS: Fluticasone Propionate Nasal Spray 16 gm Bottle NASAL SCH (10:07)
[2019-08-13] MEDS: Heparin 5,000 UNITS/ML VIAL SC SCH ×2 (10:07→14:49)
[2019-08-13] MEDS: Insulin Glargine 23 UNITS in Pre-Filled Syringe 1 EACH SC SCH (10:08)
--- NOTE | 2019-08-13 10:41 | PRG ---
DATE OF SERVICE: 08/13/2019 SERVICE: [facility]. SUBJECTIVE: Mr. Kenji Mansfield had a variable day. He has been nauseated about a day and half that could be due to n.p.o., going through stress test and so on. He went to stress test. He did not feel good at all during the stress test that could be due to adenosine and then he has not been able to walk that well. There was some confusion about dobutamine. The dobutamine was turned off before the stress test, but it is unclear when it was turned back on. Without dobutamine on board, his renal function will likely to suffer. REVIEW OF SYSTEMS: GENERAL: There is no fever, chills, or productive cough. HEENT: There is no change in vision, hearing, or swallowing. PULMONARY: He is breathing easily. CARDIAC: There is no chest pain or syncope. GI: He has nausea and is not feeling good. : He can urinate well. MUSCULOSKELETAL: There are no complaints of joint pains or muscular pain. INTEGUMENT: There is no complaint of breakdown. NEUROLOGIC: There are no complaints of new focal deficits or weaknesses. CURRENT CARDIAC MEDICATIONS: Include 1. Aspirin 81 mg daily. 2. Atorvastatin 40 mg at bedtime. 3. Carvedilol 6.25 mg twice a day. 4. Clonidine 0.2 mg three times a day. 5. Dobutamine currently at 5 mcg/kg/minute, it is unclear when it was restarted. 6. Hydralazine was 50, now increased to 75 in compensation three times a day. 7. Isosorbide dinitrate 20 mg t.i.d. 8. Zofran. Telemetry was reviewed. He is in sinus rhythm. There are no concerning arrhythmias. PHYSICAL EXAMINATION: VITAL SIGNS: Currently, heart rate 86, blood pressure 172/81. GENERAL: He is alert and conversational, sitting in bed, able to speak without being short of breath. HEENT: EOMI. Oropharynx is moist mucosa. NECK: His JVP is elevated about 12 cm positive hepatojugular reflux. LUNGS: Good air movement bilateral upper lung peralta, however, there are decreased breath sounds bilaterally. HEART: Regular rate and rhythm with a 3/6 holosystolic murmur at the apex with radiation to left axilla. There is also 2/6 diastolic murmur at the right sternal border. His murmur is a little bit louder today. ABDOMEN: Soft, nontender. EXTREMITIES: His lower extremity has about 0.5 cm pitting edema from feet about 3/[address] way towards his knee. LABORATORY DATA: His laboratory value show that his hemoglobin is 9.1, white cell count 8, platelets 285. His chemistry shows sodium 134, BUN 51, creatinine 3.25 , creatinine slightly worse than yesterday. His BNP yesterday slightly lower at 792. The report of the nuclear stress test says there is a full thickness large fixed defect inferior wall and a small partial thickness fixed defect in distal anteroseptal wall and there is also inferior wall hypokinesis. ASSESSMENT: 59-year-old gentleman resides in [place] Heart Association Stage C, also [place] Heart Association Class III heart failure with reduced ejection fraction. Per Lexiscan, there is a fixed defect suggesting there is fixed ischemia or an infarct. Consequently, this is evidence that he has significant coronary artery disease. He will need a catheterization to define the severity. But due to the fixed defect, it is hard to say this is reversible or not in terms of sikh of myocardium. He does have systolic and diastolic dysfunctions. He probably does have a hypertensive heart disease. His renal function has gone a bit worse. This could be due to being off dobutamine for a while and medication changes with his stress test. His nausea and vomiting could be due to medication changes. However, there is need to check for ongoing ischemia has a potential cause of this. Please see the following for my recommendations. RECOMMENDATIONS: 1. Increase dobutamine to 6 mcg/kg per minute. We will continue this for one day to see if we can get his renal function better. If the renal function continues to improve, then we can aim to have a coronary angiogram done. 2. Go ahead and check troponin I value now to see if he has high troponin I. High troponin will indicate NSTEMI as result of severe coronary artery disease with ongoing severe ischemia; therefore, we will have to complete coronary angiogram. However , the dye load will likely cause further kidney damage, resulting in the need for dialysis. 3. If his kidney function does not improve by tomorrow morning, then we will titrate off dobutamine over a day or two to put on oral medications understanding that he will be on dialysis sometime in the near future, then catheterization can be done after he is on dialysis. 4. I will also contact Dr. Rodríguez at [facility] for biplane low dye volume coronary angiogram care as a means to perform coronary angiogram with minimal amount of damage to the kidneys. I will also contact [facility] to find a way to help this patient with additional options. 5. Transfer to [facility] for low dye volume Bi-Plane angiogram if Dr. Rodríguez agrees. This is a difficult case, if you have any questions, please give me a call. Job ID: [id number] [facility]
[2019-08-13 11:25] VITALS: TEMP 98.5
[2019-08-13] MEDS ORDERED: hydrALAZINE 25 MG TAB PO SCH (14:00)
[2019-08-13] MEDS ORDERED: Isosorbide Dinitrate 20 MG TAB PO SCH (15:00)
[2019-08-13 15:59] VITALS: BP 171/83
--- NOTE | 2019-08-14 11:03 | DIS ---
DATE OF ADMISSION: 08/03/2019 DATE OF DISCHARGE: 08/13/2019 ADMITTING ATTENDING: Dr. Ata Witt. DISCHARGING ATTENDING: Dr. Marci Hussein. RESIDENT: Scotty Patel DO CONSULTS: 1. Dr. Franklyn Israel, Nephrology. 2. Dr. Bala Lee, Cardiology. 3. Dr. Duarte, Pulmonology. 4. Dr. Rommel Hollingsworth, CHF specialist. PRIMARY DIAGNOSES: New onset mixed congestive heart failure, anasarca secondary to nephrotic syndrome, diabetic nephropathy and congestive heart failure; bilateral pleural effusion. SECONDARY DIAGNOSES: Type 2 diabetes, hypertension, and hyperlipidemia. PROCEDURES: Please see Dr. Delphine Day's note on 08/09/2019 for all procedures before that time. On 08/11, the patient had a nuclear stress test that was negative for reversible ischemia. At the time of discharge, the patient was sent to [facility] for higher level of care. At that time, the patient was discharged on, 1. Tylenol 650 mg p.o. q.4 hours p.r.n. pain. 2. Amlodipine 10 mg p.o. daily. 3. Aspirin 81 mg p.o. daily. 4. Atorvastatin 40 mg p.o. at bedtime. 5. Carvedilol 6.25 mg p.o. b.i.d. 6. Clonidine 0.2 mg p.o. t.i.d. 7. Dobutamine 5 mcg/minute. 8. Fenofibrate 150 mg p.o. daily. 9. Ferrous sulfate 325 mg p.o. daily. 10. Fluconazole 1 spray per nares daily. 11. Furosemide 40 mg p.o. b.i.d. 12. Heparin 5000 units subcu t.i.d. 13. Hydralazine 20 mg IV q.6 hours p.r.n. high blood pressure. 14. 50 mg p.o. q.8 hours of hydralazine. 15. Insulin glargine 25 units subcu daily. 16. Isordil 30 mg p.o. t.i.d. 17. Potassium 20 mEq p.o. daily. DISCONTINUED MEDICATIONS: Metformin. BRIEF HISTORY OF PRESENT ILLNESS/HOSPITAL COURSE: In short, this is a 59-year-old male, past history of type 2 diabetes, hypertension, hyperlipidemia, who is long time uncontrolled diabetic, who presents with worsening shortness of breath since the beginning of the year. The patient was seen by Dr. Israel who wanted the patient to be admitted for anasarca and further workup of fluid overload. Please see Dr. Day's note for further information on 08/08. Following that note, the patient was in the hospital on dobutamine drip to try to optimize kidney function. There was concern for ischemia of the heart and the need for an angiogram. Therefore, the patient was switched to [place] for high-level care to provide further angiogram as well as future medical needs. Purpose of transfer is to be seen by Dr. Rodríguez at [facility] in [place] for a low volume coronary angiogram to minimize kidney damage. CONDITION: Stable. DISCHARGE INSTRUCTIONS: 1. Location: [facility]. 2. Diet: Heart healthy, consistent carb. 3. Activity: As tolerated. 4. Followup: Follow up with Dr. Rosario in 1 to 2 weeks after discharge from [facility]. Job ID: [id number]
--- NOTE | 2019-08-14 14:10 | ULT ---
BILATERAL RENAL ULTRASOUND: WITH DOPPLER: HISTORY: Evaluate renal arteries. COMPARISON: None. TECHNIQUE: Grayscale, color flow, Doppler imaging and spectral waveform analysis was performed of the renal angel [place]. FINDINGS: Right kidney: Normal cortical echotexture. No hydronephrosis. Right kidney measurements: 4.3 x 11.3 x 5.3 cm. Left kidney: Normal cortical echotexture. No hydronephrosis. Left kidney measurements 4.5 x 11.7 x 4.8 cm. Urinary bladder: Normal mucosa. Bilateral ureteral jets are identified. Doppler imaging: Right renal artery 69.9 cm/s Left renal artery 33.2 cm/s Aorta 161.7 cm/s Right renal artery to aorta ratio 0.43 Left renal artery to aorta ratio 0.21 Right renal artery arcuate resistive indices 0.79 Left arcuate artery resistive indices 0.88 IMPRESSION: 1. No hydronephrosis. 2. Increased resistive indices of both arcuate arteries suggesting medical renal disease. 3. Asymmetric velocity of the left renal artery with respect to the contralateral side. If there is c oncern for renal artery stenosis, consider CT angiogram. Transcribed Date/Time: 08/14/2019 2:10 PM
== END 2019-08-13 20:33 | disposition short-term general hospital (02) | DRG 291 ==
LOC: ERS 15:30 → 2NO 19:34 → 2SW 21:32 → 2NO 08-04 17:33
PROVIDERS: ADMIT Emergency Medicine; ATTEND Emergency Medicine
PROC: 3E02340 Introduction of Influenza Vaccine into Muscle, Percutaneous Approach (ICD-10-PCS; principal; 2019-08-04)
PROC: 3E033XZ Introduction of Vasopressor into Peripheral Vein, Percutaneous Approach (ICD-10-PCS; 2019-08-08)
DX: I13.0 Hypertensive heart and chronic kidney disease with heart failure and stage 1 through stage 4 chronic kidney disease, or unspecified chronic kidney disease (principal); I50.41 Acute combined systolic (congestive) and diastolic (congestive) heart failure; N18.4 Chronic kidney disease, stage 4 (severe); J98.11 Atelectasis; N17.9 Acute kidney failure, unspecified; Z20.828 Contact with and (suspected) exposure to other viral communicable diseases; Z23 Encounter for immunization; E11.319 Type 2 diabetes mellitus with unspecified diabetic retinopathy without macular edema; D50.9 Iron deficiency anemia, unspecified; D69.6 Thrombocytopenia, unspecified; I42.9 Cardiomyopathy, unspecified; E11.22 Type 2 diabetes mellitus with diabetic chronic kidney disease; E78.5 Hyperlipidemia, unspecified; Z79.4 Long term (current) use of insulin; Z79.51 Long term (current) use of inhaled steroids; Z79.899 Other long term (current) drug therapy; Z90.49 Acquired absence of other specified parts of digestive tract; Z87.891 Personal history of nicotine dependence
CPT/HCPCS: 36415; 36416; 71045; 71046; 71250; 76770; 78452; 80048; 80053; 80061; 82553; 82607; 82728; 82746; 83036; 83520; 83540; 83550; 83735; 83880; 84100; 84443; 84466; 84484; 85025; 86038; 86140; 86225; 86256; 86334; 86803; 87340; 87389; 87635; 93005; 93010; 93017; 93306; 93798; 93975; 94760; A9500; J0360; J1250; J1644; J1815; J1940; J2260; J2405; J2785; P9047; U0003

== ENCOUNTER 2020-06-19 21:00 | Inpatient (IN) | payer OTHER ==
[2020-06-19 21:42] LABS: Mean Corpuscular HGB CONC 32.7 g/dL (32.0-36.0); Mean Corpuscular Hemoglobin 32.2 pg (27.0-31.0); Mean Corpuscular Volume 98.6 fL (78.0-98.0); RBC Distribution Width 13.1 % (11.5-14.5); Red Blood Cell (RBC) Count 2.47 mill/uL (4.70-6.10)
[2020-06-19 21:47] LABS: INR-International Normal Ratio 1.4; PTT 37.2 sec (22.9-36.1); Prothrombin Time 17.1 sec (12.0-14.7)
[2020-06-19 21:55] LABS: ALT (SGPT) 35 U/L (8-55); AST (SGOT) 46 U/L (5-34); Albumin 2.8 g/dL (3.5-5.0); Alkaline Phosphatase 121 U/L (40-110); Anion Gap 21 mmol/L (10-20); BUN (Urea Nitrogen) 120 mg/dL (8.4-25.7); Bilirubin, Total 0.8 mg/dL (0.2-1.2); Calc. Creatinine Clearance 0 mL/min (70-130); Carbon Dioxide 23 mmol/L (22-29); Chloride 95 mmol/L (98-107); Globulin 3.5 g/dL (2.4-3.5); Glucose 100 mg/dL (70-105); Potassium 3.6 mmol/L (3.5-5.1); Protein, Total 6.3 g/dL (6.0-8.3); Sodium 135 mmol/L (136-145)
[2020-06-19] MEDS ORDERED: Morphine 4 MG/ML VIAL ONE (22:05)
[2020-06-19] MEDS ORDERED: Ondansetron PF 4 MG/2 ML Vial ONE (22:05)
[2020-06-19 22:08] LABS: Band 6 % (5-11); Lymphocytes 1 % (21-51); MDiff Complete? YES; Mean Platelet Volume 7.2 fL (7.4-10.4); Monocytes 4 % (0-10); Neutrophil 89 % (42-75); Platelet Count 184 thou/uL (130-400); White Blood Cell (WBC) Count 16.2 thou/uL (4.8-10.8)
[2020-06-19] MEDS ORDERED: Vancomycin 1 GM/200 ML BAG ONE (22:49)
[2020-06-19] MEDS ORDERED: Cefepime 2 GM VIAL ONE (22:50)
[2020-06-19] MEDS ORDERED: Sodium Chloride 0.9% 100 ML ONE (22:50)
[2020-06-19] MEDS ORDERED: Morphine 4 MG/ML VIAL SLOW IVP PRN (23:13)
[2020-06-19] MEDS ORDERED: Dextrose 5% in Water 1,000 ML IV PRN (23:13)
[2020-06-19] MEDS ORDERED: hydrALAZINE 20 MG/ML VIAL SLOW IVP PRN (23:13)
[2020-06-19] MEDS ORDERED: Dextrose 50% Abboject 50 ML SYRINGE SLOW IVP PRN (23:13)
[2020-06-19] MEDS ORDERED: Cyclobenzaprine 10 MG TAB PO PRN (23:25)
[2020-06-19 23:37] LABS: Phosphorus 7.2 mg/dL (2.3-4.7)
[2020-06-20 01:16] VITALS: BMI 25.3
[2020-06-20] MEDS: Sodium Chloride 0.9% 1,000 ML IV SCH ×3 (01:31→17:39)
[2020-06-20] MEDS: traMADol HCl 50 MG TAB PO SCH ×2 (01:31→12:00)
[2020-06-20] MEDS: Acetaminophen 500 MG TAB PO SCH ×4 (01:31→17:39)
[2020-06-20 01:32] LABS: SARS-CoV-2 NAA Rapid Test Not Detected (NotDetected)
[2020-06-20 05:55] LABS: #Lymphocytes 0.4 thou/uL (1.20-3.40); #Monocytes 1.3 thou/uL (0.11-0.59); #Neutrophils 12.3 thou/uL (1.40-6.50); %Basophils 0.2 % (0.0-1.0); %Eosinophils 0.1 % (0.0-10.0); %Lymphocytes 2.5 % (21.0-51.0); %Monocytes 9.2 % (0.0-10.0); Hemoglobin 7.3 g/dL (14.0-18.0); Mean Corpuscular HGB CONC 30.9 g/dL (32.0-36.0); Mean Corpuscular Hemoglobin 30.4 pg (27.0-31.0); Mean Corpuscular Volume 98.7 fL (78.0-98.0); Mean Platelet Volume 7.4 fL (7.4-10.4); Platelet Count 185 thou/uL (130-400); RBC Distribution Width 13.3 % (11.5-14.5); Red Blood Cell (RBC) Count 2.38 mill/uL (4.70-6.10); White Blood Cell (WBC) Count 13.9 thou/uL (4.8-10.8)
[2020-06-20 06:11] LABS: Anion Gap 16 mmol/L (10-20); BUN (Urea Nitrogen) 116 mg/dL (8.4-25.7); Calc. Creatinine Clearance 23 mL/min (70-130); Calcium 7.3 mg/dL (7.8-10.44); Carbon Dioxide 24 mmol/L (22-29); Chloride 97 mmol/L (98-107); Glucose 107 mg/dL (70-105); Potassium 3.4 mmol/L (3.5-5.1); Sodium 134 mmol/L (136-145)
[2020-06-20] MEDS ORDERED: Ferrous Sulfate 325 MG TAB PO SCH (08:00)
[2020-06-20] MEDS ORDERED: CEFAZOLIN 2 GM in Premix Bag 1 BAG IVPB SCH (08:00)
[2020-06-20] MEDS ORDERED: Famotidine/PF 20 mg/2ml Vial SLOW IVP SCH (09:00)
[2020-06-20] MEDS ORDERED: TETANUS AND DIPHTHERIA TOX/PF 0.5 ML DISP.SYRIN IM ONE (09:00)
[2020-06-20] MEDS: Ascorbic Acid 500 mg Chewable Tablet PO SCH ×2 (09:12→20:46)
[2020-06-20] MEDS: Ferrous Sulfate 325 MG TAB PO SCH ×2 (09:12→20:46)
[2020-06-20] MEDS: Polyethylene Glycol 3350 17 GM Packet PO SCH (09:12)
[2020-06-20] MEDS: Senokot S 8.6-50 MG TAB PO SCH ×2 (09:13→20:46)
[2020-06-20] MEDS: Ondansetron PF 4 MG/2 ML Vial IVP PRN (09:19)
[2020-06-20] MEDS ORDERED: Fentanyl 100 MCG/2 ML VIAL ONE (11:40)
[2020-06-20] MEDS: Potassium Chloride 20 MEQ in Premix Bag 1 BAG IVPB SCH ×4 (12:00→18:25)
[2020-06-20] MEDS ORDERED: Glycopyrrolate 0.2 MG/ML 5 ML SYRINGE ONE (12:17)
[2020-06-20] MEDS ORDERED: ePHEDrine Sulfate 50 MG/10 ML VIAL ONE (12:17)
[2020-06-20] MEDS ORDERED: Lidocaine 1% PF 5 ML VIAL ONE (12:17)
[2020-06-20] MEDS ORDERED: PROPOFOL 200 MG/20 ML VIAL ONE (12:17)
[2020-06-20] MEDS ORDERED: Ondansetron PF 4 MG/2 ML Vial ONE (12:17)
[2020-06-20] MEDS ORDERED: Dexamethasone 20 MG/5 ML VIAL ONE (12:17)
[2020-06-20] MEDS ORDERED: PHENYLEPHRINE-NS 100 MCG/ML 10 ML SYRINGE ONE (12:17)
[2020-06-20] MEDS ORDERED: Succinylcholine 200 MG/10 ml SYRINGE FS ONE (12:17)
[2020-06-20] MEDS ORDERED: Norepinephrine 4 MG/4 ML VIAL ONE (13:06)
[2020-06-20] MEDS: CEFAZOLIN 2 GM in Premix Bag 1 BAG IVPB SCH (20:45)
[2020-06-20] MEDS ORDERED: Tuberculin PPD 0.1 ML VIAL I-DERMAL SCH (23:15)
[2020-06-21] MEDS: Acetaminophen 500 MG TAB PO SCH ×4 (00:01→17:59)
[2020-06-21] MEDS: traMADol HCl 50 MG TAB PO SCH ×2 (00:02→14:44)
[2020-06-21] MEDS: Ondansetron PF 4 MG/2 ML Vial IVP PRN ×3 (00:06→11:42)
[2020-06-21 01:56] LABS: HIV (1/2) Antibody/Antigen Non-Reactive (NonReactive); Hep C IgG Ab Non-Reactive (NonReactive); Hep C Index 0.21 S/CO (0-0.79)
[2020-06-21 01:59] LABS: HBSAB Concentration Less than 8.00 mIU/mL; Hep B Core Total Ab Non-Reactive (NonReactive); Hep B Core Total Index 0.04 S/CO (0-0.79); Hep B Surf AB Non-Reactive (NonReactive); Hep B Surf Ag Non-Reactive S/CO (NonReactive); Hep C IgG Ab Non-Reactive (NonReactive); Hep C Index 0.17 S/CO (0-0.79)
[2020-06-21] MEDS: CEFAZOLIN 2 GM in Premix Bag 1 BAG IVPB SCH (03:08)
[2020-06-21] MEDS: Sodium Chloride 0.9% 1,000 ML IV SCH (04:20)
[2020-06-21 05:53] LABS: #Lymphocytes 0.2 thou/uL (1.20-3.40); #Monocytes 0.6 thou/uL (0.11-0.59); #Neutrophils 12.8 thou/uL (1.40-6.50); %Lymphocytes 1.6 % (21.0-51.0); %Monocytes 4.3 % (0.0-10.0); %Neutrophils 94.1 % (42.0-75.0); Hemoglobin 7.7 g/dL (14.0-18.0); Mean Corpuscular Hemoglobin 30.7 pg (27.0-31.0); Mean Platelet Volume 7.3 fL (7.4-10.4); Platelet Count 218 thou/uL (130-400); RBC Distribution Width 13.4 % (11.5-14.5); White Blood Cell (WBC) Count 13.7 thou/uL (4.8-10.8)
[2020-06-21 05:55] LABS: INR-International Normal Ratio 1.3; Prothrombin Time 16.5 sec (12.0-14.7)
[2020-06-21 06:18] LABS: Anion Gap 25 mmol/L (10-20); BUN (Urea Nitrogen) 125 mg/dL (8.4-25.7); Calc. Creatinine Clearance 20 mL/min (70-130); Carbon Dioxide 17 mmol/L (22-29); Chloride 97 mmol/L (98-107); Glucose 116 mg/dL (70-105); Magnesium 2.5 mg/dL (1.6-2.6); Phosphorus 9.5 mg/dL (2.3-4.7); Potassium 4.5 mmol/L (3.5-5.1); Sodium 134 mmol/L (136-145)
[2020-06-21] MEDS ORDERED: Aquaphor 30 GM JAR TOP SCH (09:00)
[2020-06-21] MEDS ORDERED: Aspirin 81 mg Enteric Coated Tablet PO SCH (09:00)
[2020-06-21] MEDS: Ferrous Sulfate 325 MG TAB PO SCH ×2 (09:11→23:38)
[2020-06-21] MEDS: Senokot S 8.6-50 MG TAB PO SCH ×2 (09:12→23:38)
[2020-06-21] MEDS: Polyethylene Glycol 3350 17 GM Packet PO SCH (09:12)
[2020-06-21] MEDS: Ascorbic Acid 500 mg Chewable Tablet PO SCH ×2 (09:12→23:38)
[2020-06-21] MEDS ORDERED: CEFAZOLIN 2 GM in Premix Bag 1 BAG IVPB SCH (09:30)
[2020-06-21] MEDS ORDERED: Scopolamine 1.5 mg/72 hour Patch ONE (10:30)
[2020-06-21] MEDS: Scopolamine 1.5 mg/72 hour Patch TD SCH (10:33)
[2020-06-21] MEDS ORDERED: Iron, Sodium Ferric Gluconate 250 MG in Sodium Chloride 0.9% 250 ML 250 ML IVPB SCH (15:00)
[2020-06-21] MEDS: Famotidine 20 MG TAB PO SCH (15:14)
[2020-06-21] MEDS: Furosemide 80 MG TAB PO SCH ×2 (15:14→17:13)
[2020-06-21] MEDS ORDERED: Promethazine HCl 12.5 MG in Sodium Chloride 0.9% 50 ML IVPB SCH (16:45)
[2020-06-21] MEDS: hydrALAZINE 25 MG TAB PO SCH ×2 (17:13→23:38)
[2020-06-21] MEDS: cloNIDine 0.2 MG TAB PO SCH ×2 (17:13→23:38)
[2020-06-21] MEDS: Carvedilol 25 MG TAB PO SCH (17:14)
[2020-06-21] MEDS ORDERED: Promethazine HCl 12.5 MG in Sodium Chloride 0.9% 50 ML IVPB PRN (23:33)
[2020-06-22] MEDS: Heparin 5,000 UNITS/ML VIAL SC SCH ×2 (00:23→09:00)
[2020-06-22] MEDS: Acetaminophen 500 MG TAB PO SCH ×4 (00:23→18:43)
[2020-06-22] MEDS: traMADol HCl 50 MG TAB PO SCH ×2 (00:24→12:26)
[2020-06-22] MEDS: Promethazine HCl 12.5 MG in Sodium Chloride 0.9% 50 ML IVPB PRN ×2 (01:32→21:36)
[2020-06-22] MEDS: Carvedilol 25 MG TAB PO SCH ×3 (02:03→16:42)
[2020-06-22] MEDS: Furosemide 80 MG TAB PO SCH ×3 (02:03→16:42)
[2020-06-22] MEDS: hydrALAZINE 25 MG TAB PO SCH ×4 (02:04→22:01)
[2020-06-22] MEDS: cloNIDine 0.2 MG TAB PO SCH ×5 (02:04→22:01)
[2020-06-22] MEDS ORDERED: Furosemide 20 MG/2 ML VIAL SLOW IVP SCH (02:15)
[2020-06-22] MEDS: Sodium Chloride 0.9% 1,000 ML IV SCH ×2 (02:48→18:21)
[2020-06-22 06:09] LABS: #Lymphocytes 0.3 thou/uL (1.20-3.40); #Monocytes 1.5 thou/uL (0.11-0.59); #Neutrophils 15.7 thou/uL (1.40-6.50); %Basophils 0.1 % (0.0-1.0); %Lymphocytes 1.8 % (21.0-51.0); %Monocytes 8.4 % (0.0-10.0); %Neutrophils 89.7 % (42.0-75.0); Hemoglobin 6.8 g/dL (14.0-18.0); Mean Corpuscular HGB CONC 32.9 g/dL (32.0-36.0); Mean Corpuscular Volume 97.4 fL (78.0-98.0); Mean Platelet Volume 7.4 fL (7.4-10.4); Platelet Count 216 thou/uL (130-400); RBC Distribution Width 13.8 % (11.5-14.5); Red Blood Cell (RBC) Count 2.13 mill/uL (4.70-6.10); White Blood Cell (WBC) Count 17.5 thou/uL (4.8-10.8)
[2020-06-22 06:23] LABS: ALT (SGPT) 13 U/L (8-55); AST (SGOT) 35 U/L (5-34); Albumin 2.6 g/dL (3.5-5.0); Alkaline Phosphatase 137 U/L (40-110); Anion Gap 26 mmol/L (10-20); Bilirubin, Total 0.4 mg/dL (0.2-1.2); Calc. Creatinine Clearance 19 mL/min (70-130); Calcium 7.7 mg/dL (7.8-10.44); Carbon Dioxide 19 mmol/L (22-29); Chloride 96 mmol/L (98-107); Globulin 3.5 g/dL (2.4-3.5); Glucose 197 mg/dL (70-105); Magnesium 2.6 mg/dL (1.6-2.6); Phosphorus 9.9 mg/dL (2.3-4.7); Potassium 4.7 mmol/L (3.5-5.1); Protein, Total 6.1 g/dL (6.0-8.3); Sodium 136 mmol/L (136-145)
[2020-06-22 06:34] LABS: BUN (Urea Nitrogen) 131 mg/dL (8.4-25.7)
[2020-06-22] MEDS ORDERED: Bupivacaine 0.25% HCL 30 ML VIAL ONE (06:43)
[2020-06-22] MEDS ORDERED: Lidocaine 1% w/Epinephrine 1:100K 20 ML VIAL ONE (06:43)
[2020-06-22] MEDS ORDERED: Heparin 10,000 UNITS/ 10 ML VIAL ONE ×3 (06:44→10:18)
[2020-06-22] MEDS ORDERED: Sodium Chloride 0.9% 30 ML ONE (06:44)
[2020-06-22] MEDS ORDERED: Heparin 5,000 UNITS/ML VIAL ONE (06:44)
[2020-06-22] MEDS ORDERED: PROPOFOL 200 MG/20 ML VIAL ONE (07:45)
[2020-06-22] MEDS ORDERED: Fentanyl 100 MCG/2 ML VIAL ONE (08:32)
[2020-06-22] MEDS ORDERED: Bupivacaine PF 0.5% 30 ML VIAL ONE (08:34)
[2020-06-22] MEDS: Ascorbic Acid 500 mg Chewable Tablet PO SCH ×2 (09:00→22:01)
[2020-06-22] MEDS: Cholecalciferol 1,000 UNITS (25 MCG) TAB PO SCH (09:00)
[2020-06-22] MEDS: Ferrous Sulfate 325 MG TAB PO SCH ×2 (09:00→22:02)
[2020-06-22] MEDS: Senokot S 8.6-50 MG TAB PO SCH ×2 (09:00→22:01)
[2020-06-22] MEDS: Polyethylene Glycol 3350 17 GM Packet PO SCH (09:00)
[2020-06-22] MEDS: Famotidine 20 MG TAB PO SCH (09:00)
[2020-06-22] MEDS: Insulin Regular 300 UNITS/3 ML VIAL SC PRN ×2 (18:44→21:59)
[2020-06-22 19:45] LABS: Band 30 % (5-11); Helmet Cells SLIGHT = 2-5 cells (100X) (0-1/hpf); Hemoglobin 6.3 g/dL (14.0-18.0); Hypochromia SLIGHT = 6-15 cells (100X) (0-5/hpf); Lymphocytes 1 % (21-51); MDiff Complete? YES; Mean Corpuscular HGB CONC 33.3 g/dL (32.0-36.0); Mean Corpuscular Hemoglobin 32.1 pg (27.0-31.0); Mean Corpuscular Volume 96.3 fL (78.0-98.0); Mean Platelet Volume 7.4 fL (7.4-10.4); Metamyelocyte 1 % (0-0); Monocytes 3 % (0-10); Neutrophil 65 % (42-75); Platelet Count 191 thou/uL (130-400); Platelet Morphology Comment Appears Adequate; RBC Distribution Width 13.5 % (11.5-14.5); Red Blood Cell (RBC) Count 1.95 mill/uL (4.70-6.10); Schistocytes SLIGHT = 2-5 cells (100X) (0-1/hpf); Target Cells SLIGHT = 2-5 cells (100X) (0-1/hpf); Tear Drops SLIGHT = 2-5 cells (100X) (0-1/hpf); White Blood Cell (WBC) Count 22.3 thou/uL (4.8-10.8)
[2020-06-22] MEDS: Atorvastatin Calcium 40 MG TAB PO SCH (22:01)
[2020-06-22 22:09] LABS: INR-International Normal Ratio 1.6; PTT 38.3 sec (22.9-36.1); Prothrombin Time 19.5 sec (12.0-14.7)
[2020-06-22] MEDS ORDERED: READ PPD TEST SITE PO SCH (23:00)
[2020-06-23] MEDS: Acetaminophen 500 MG TAB PO SCH ×4 (00:17→17:07)
[2020-06-23] MEDS: traMADol HCl 50 MG TAB PO SCH ×3 (00:18→11:55)
[2020-06-23 05:35] LABS: #Lymphocytes 0.5 thou/uL (1.20-3.40); #Monocytes 1.1 thou/uL (0.11-0.59); #Neutrophils 14.5 thou/uL (1.40-6.50); %Monocytes 6.8 % (0.0-10.0); %Neutrophils 90.2 % (42.0-75.0); Hemoglobin 6.6 g/dL (14.0-18.0); Mean Corpuscular HGB CONC 33.4 g/dL (32.0-36.0); Mean Corpuscular Hemoglobin 31.5 pg (27.0-31.0); Mean Corpuscular Volume 94.2 fL (78.0-98.0); Mean Platelet Volume 7.5 fL (7.4-10.4); Platelet Count 175 thou/uL (130-400); RBC Distribution Width 13.9 % (11.5-14.5); Red Blood Cell (RBC) Count 2.09 mill/uL (4.70-6.10); White Blood Cell (WBC) Count 16.1 thou/uL (4.8-10.8)
[2020-06-23 05:55] LABS: Anion Gap 20 mmol/L (10-20); Calc. Creatinine Clearance 19 mL/min (70-130); Calcium 7.3 mg/dL (7.8-10.44); Carbon Dioxide 25 mmol/L (22-29); Chloride 96 mmol/L (98-107); Glucose 251 mg/dL (70-105); Magnesium 2.7 mg/dL (1.6-2.6); Potassium 4.4 mmol/L (3.5-5.1); Sodium 137 mmol/L (136-145)
[2020-06-23 06:06] LABS: BUN (Urea Nitrogen) 146 mg/dL (8.4-25.7)
[2020-06-23 06:20] LABS: Phosphorus 7.7 mg/dL (2.3-4.7)
[2020-06-23] MEDS: hydrALAZINE 25 MG TAB PO SCH ×3 (06:32→23:38)
[2020-06-23] MEDS ORDERED: EPOETIN ALFA-EPBX (ESRD) 3,000 UNIT/ML VIAL SC SCH (09:00)
[2020-06-23] MEDS: Carvedilol 25 MG TAB PO SCH ×3 (09:08→17:08)
[2020-06-23] MEDS: Cholecalciferol 1,000 UNITS (25 MCG) TAB PO SCH (10:18)
[2020-06-23] MEDS: cloNIDine 0.2 MG TAB PO SCH ×3 (10:18→21:53)
[2020-06-23] MEDS: Ascorbic Acid 500 mg Chewable Tablet PO SCH ×2 (10:18→21:53)
[2020-06-23] MEDS: Famotidine 20 MG TAB PO SCH (10:19)
[2020-06-23] MEDS: Senokot S 8.6-50 MG TAB PO SCH ×2 (10:19→22:05)
[2020-06-23] MEDS: Polyethylene Glycol 3350 17 GM Packet PO SCH (10:19)
[2020-06-23 11:14] LABS: Hep B Surface AG-Rflx Sendout Negative (Negative); Hepatitis B Core Total Negative (Negative); Hepatitis B Surface AB-Sendout Non Reactive (.)
[2020-06-23] MEDS: Furosemide 80 MG TAB PO SCH ×2 (11:23→14:42)
[2020-06-23] MEDS: Ferrous Sulfate 325 MG TAB PO SCH ×2 (11:53→21:53)
[2020-06-23 12:18] LABS: Glucose 219 mg/dL (70-105)
[2020-06-23] MEDS: Insulin Regular 300 UNITS/3 ML VIAL SC PRN ×3 (12:36→21:53)
[2020-06-23] MEDS ORDERED: Heparin 10,000 UNITS/ 10 ML VIAL ONE (14:51)
[2020-06-23 15:30] LABS: #Lymphocytes 0.7 thou/uL (1.20-3.40); #Monocytes 1.3 thou/uL (0.11-0.59); #Neutrophils 11.1 thou/uL (1.40-6.50); %Eosinophils 0.2 % (0.0-10.0); %Lymphocytes 4.9 % (21.0-51.0); %Monocytes 10.2 % (0.0-10.0); %Neutrophils 84.6 % (42.0-75.0); Hemoglobin 6.7 g/dL (14.0-18.0); Mean Corpuscular HGB CONC 34.5 g/dL (32.0-36.0); Mean Corpuscular Hemoglobin 32.3 pg (27.0-31.0); Mean Corpuscular Volume 93.7 fL (78.0-98.0); Mean Platelet Volume 7.4 fL (7.4-10.4); Platelet Count 152 thou/uL (130-400); RBC Distribution Width 14.1 % (11.5-14.5); Red Blood Cell (RBC) Count 2.08 mill/uL (4.70-6.10); White Blood Cell (WBC) Count 13.1 thou/uL (4.8-10.8)
[2020-06-23 17:41] LABS: Glucose 215 mg/dL (70-105)
[2020-06-23] MEDS ORDERED: Calcium Chloride 1 GM/10 ML Abboject SYRINGE IVP SCH (17:45)
[2020-06-23] MEDS ORDERED: Dextrose 5% in Water 1,000 ML IV PRN (18:07)
[2020-06-23] MEDS ORDERED: Dextrose 50% Abboject 50 ML SYRINGE SLOW IVP PRN (18:07)
[2020-06-23] MEDS ORDERED: Insulin Regular 300 UNITS/3 ML VIAL SC PRN (18:07)
[2020-06-23 18:27] LABS: INR-International Normal Ratio 2.2; Prothrombin Time 25.1 sec (12.0-14.7)
[2020-06-23 21:19] LABS: Glucose 215 mg/dL (70-105)
[2020-06-23] MEDS: Atorvastatin Calcium 40 MG TAB PO SCH (21:53)
[2020-06-23] MEDS: Lantus 1000 UNITS/10 ML VIAL SC SCH (21:54)
[2020-06-23] MEDS ORDERED: Calcium Carbonate 500 MG ChewTAB PO PRN (23:53)
[2020-06-24] MEDS: traMADol HCl 50 MG TAB PO SCH ×3 (00:14→23:32)
[2020-06-24] MEDS: Acetaminophen 500 MG TAB PO SCH ×5 (00:14→23:32)
[2020-06-24 05:31] LABS: #Eosinphils 0.2 thou/uL (0.0-0.7); #Lymphocytes 0.7 thou/uL (1.20-3.40); #Monocytes 1.2 thou/uL (0.11-0.59); %Basophils 0.1 % (0.0-1.0); %Eosinophils 2.1 % (0.0-10.0); %Lymphocytes 6.7 % (21.0-51.0); %Monocytes 11.5 % (0.0-10.0); %Neutrophils 79.6 % (42.0-75.0); Hemoglobin 6.8 g/dL (14.0-18.0); Mean Corpuscular HGB CONC 32.9 g/dL (32.0-36.0); Mean Corpuscular Hemoglobin 31.3 pg (27.0-31.0); Mean Corpuscular Volume 95.1 fL (78.0-98.0); Mean Platelet Volume 7.5 fL (7.4-10.4); Platelet Count 134 thou/uL (130-400); RBC Distribution Width 13.9 % (11.5-14.5); Red Blood Cell (RBC) Count 2.18 mill/uL (4.70-6.10); White Blood Cell (WBC) Count 10.1 thou/uL (4.8-10.8)
[2020-06-24 06:02] LABS: BUN (Urea Nitrogen) 116 mg/dL (8.4-25.7)
[2020-06-24 06:05] LABS: Anion Gap 15 mmol/L (10-20); Calc. Creatinine Clearance 24 mL/min (70-130); Calcium 7.2 mg/dL (7.8-10.44); Carbon Dioxide 24 mmol/L (22-29); Chloride 100 mmol/L (98-107); Glucose 155 mg/dL (70-105); Magnesium 2.1 mg/dL (1.6-2.6); Phosphorus 5.6 mg/dL (2.3-4.7); Potassium 3.8 mmol/L (3.5-5.1); Sodium 135 mmol/L (136-145)
[2020-06-24] MEDS: hydrALAZINE 25 MG TAB PO SCH ×3 (06:13→21:13)
[2020-06-24] MEDS ORDERED: Calcium Gluc 4.6 MEQ/10 ML (100 MG/ML) SLOW IVP SCH ×2 (06:45→11:45)
[2020-06-24] MEDS: Ascorbic Acid 500 mg Chewable Tablet PO SCH ×2 (08:07→21:12)
[2020-06-24] MEDS: Cholecalciferol 1,000 UNITS (25 MCG) TAB PO SCH (08:07)
[2020-06-24] MEDS: Famotidine 20 MG TAB PO SCH (08:07)
[2020-06-24] MEDS ORDERED: EPOETIN ALFA-EPBX (ESRD) 3,000 UNIT/ML VIAL SC SCH (09:00)
[2020-06-24] MEDS ORDERED: EPOETIN ALFA-EPBX (ESRD) 4,000 UNIT/ML VIAL SC SCH (09:00)
[2020-06-24] MEDS: Senokot S 8.6-50 MG TAB PO SCH ×2 (12:14→21:14)
[2020-06-24] MEDS: Ferrous Sulfate 325 MG TAB PO SCH ×2 (12:15→21:13)
[2020-06-24] MEDS: Furosemide 80 MG TAB PO SCH ×2 (12:15→15:37)
[2020-06-24] MEDS: cloNIDine 0.2 MG TAB PO SCH ×3 (12:54→21:13)
[2020-06-24] MEDS: Calcium Carbonate 500 MG ChewTAB PO SCH ×3 (12:54→18:54)
[2020-06-24] MEDS: Carvedilol 25 MG TAB PO SCH ×2 (12:54→15:36)
[2020-06-24] MEDS: Scopolamine 1.5 mg/72 hour Patch TD SCH (12:55)
[2020-06-24] MEDS: Polyethylene Glycol 3350 17 GM Packet PO SCH (12:55)
[2020-06-24 12:59] LABS: Glucose 121 mg/dL (70-105)
[2020-06-24] MEDS ORDERED: Heparin 10,000 UNITS/ 10 ML VIAL ONE (14:47)
[2020-06-24 17:50] LABS: Glucose 123 mg/dL (70-105)
[2020-06-24] MEDS: Atorvastatin Calcium 40 MG TAB PO SCH (21:13)
[2020-06-24 21:46] LABS: Glucose 132 mg/dL (70-105)
[2020-06-24] MEDS: Lantus 1000 UNITS/10 ML VIAL SC SCH (22:45)
[2020-06-25] MEDS: Acetaminophen 500 MG TAB PO SCH ×3 (06:10→18:03)
[2020-06-25] MEDS: hydrALAZINE 25 MG TAB PO SCH ×3 (06:11→22:19)
[2020-06-25 06:28] LABS: #Eosinphils 0.3 thou/uL (0.0-0.7); #Lymphocytes 0.6 thou/uL (1.20-3.40); #Neutrophils 11.8 thou/uL (1.40-6.50); %Basophils 0.1 % (0.0-1.0); %Eosinophils 1.9 % (0.0-10.0); %Lymphocytes 4.2 % (21.0-51.0); %Monocytes 7.5 % (0.0-10.0); %Neutrophils 86.4 % (42.0-75.0); Hemoglobin 7.3 g/dL (14.0-18.0); Mean Corpuscular HGB CONC 33.7 g/dL (32.0-36.0); Mean Corpuscular Hemoglobin 31.9 pg (27.0-31.0); Mean Corpuscular Volume 94.7 fL (78.0-98.0); Mean Platelet Volume 7.4 fL (7.4-10.4); Platelet Count 163 thou/uL (130-400); RBC Distribution Width 13.8 % (11.5-14.5); White Blood Cell (WBC) Count 13.7 thou/uL (4.8-10.8)
[2020-06-25 06:48] LABS: Anion Gap 15 mmol/L (10-20); BUN (Urea Nitrogen) 84 mg/dL (8.4-25.7); Calc. Creatinine Clearance 31 mL/min (70-130); Calcium 7.3 mg/dL (7.8-10.44); Carbon Dioxide 27 mmol/L (22-29); Chloride 100 mmol/L (98-107); Glucose 125 mg/dL (70-105); Potassium 3.7 mmol/L (3.5-5.1); Sodium 138 mmol/L (136-145)
[2020-06-25 07:00] LABS: Glucose 124 mg/dL (70-105)
[2020-06-25] MEDS: cloNIDine 0.2 MG TAB PO SCH ×3 (09:57→20:51)
[2020-06-25] MEDS: Calcium Carbonate 500 MG ChewTAB PO SCH ×4 (09:58→18:03)
[2020-06-25] MEDS: Famotidine 20 MG TAB PO SCH (09:58)
[2020-06-25] MEDS: Senokot S 8.6-50 MG TAB PO SCH ×2 (09:58→20:52)
[2020-06-25] MEDS: Carvedilol 25 MG TAB PO SCH ×2 (09:59→16:06)
[2020-06-25] MEDS: Ascorbic Acid 500 mg Chewable Tablet PO SCH ×2 (09:59→20:52)
[2020-06-25] MEDS: Cholecalciferol 1,000 UNITS (25 MCG) TAB PO SCH (09:59)
[2020-06-25] MEDS: Furosemide 80 MG TAB PO SCH ×2 (09:59→16:07)
[2020-06-25] MEDS: Ferrous Sulfate 325 MG TAB PO SCH ×2 (10:00→20:51)
[2020-06-25] MEDS: Polyethylene Glycol 3350 17 GM Packet PO SCH (10:09)
[2020-06-25] MEDS: traMADol HCl 50 MG TAB PO SCH (12:30)
[2020-06-25] MEDS: Atorvastatin Calcium 40 MG TAB PO SCH (20:51)
[2020-06-25] MEDS: Lantus 1000 UNITS/10 ML VIAL SC SCH (21:33)
[2020-06-26] MEDS: Acetaminophen 500 MG TAB PO SCH ×5 (00:35→23:30)
[2020-06-26] MEDS: traMADol HCl 50 MG TAB PO SCH ×3 (00:35→23:30)
[2020-06-26 05:18] LABS: #Eosinphils 0.3 thou/uL (0.0-0.7); #Lymphocytes 0.5 thou/uL (1.20-3.40); #Neutrophils 13.4 thou/uL (1.40-6.50); %Basophils 0.1 % (0.0-1.0); %Lymphocytes 3.1 % (21.0-51.0); %Monocytes 6.4 % (0.0-10.0); %Neutrophils 88.5 % (42.0-75.0); Hemoglobin 7.6 g/dL (14.0-18.0); Mean Corpuscular Hemoglobin 31.8 pg (27.0-31.0); Mean Corpuscular Volume 96.4 fL (78.0-98.0); Mean Platelet Volume 7.6 fL (7.4-10.4); Platelet Count 173 thou/uL (130-400); RBC Distribution Width 13.6 % (11.5-14.5); Red Blood Cell (RBC) Count 2.39 mill/uL (4.70-6.10); White Blood Cell (WBC) Count 15.2 thou/uL (4.8-10.8)
[2020-06-26] MEDS: hydrALAZINE 25 MG TAB PO SCH ×3 (05:54→21:21)
[2020-06-26] MEDS: Furosemide 80 MG TAB PO SCH ×2 (09:29→14:29)
[2020-06-26] MEDS: Cholecalciferol 1,000 UNITS (25 MCG) TAB PO SCH (09:29)
[2020-06-26] MEDS: Ascorbic Acid 500 mg Chewable Tablet PO SCH ×2 (09:30→21:20)
[2020-06-26] MEDS: Ferrous Sulfate 325 MG TAB PO SCH ×2 (09:30→21:21)
[2020-06-26] MEDS: Senokot S 8.6-50 MG TAB PO SCH ×2 (09:30→21:20)
[2020-06-26] MEDS: Famotidine 20 MG TAB PO SCH (09:31)
[2020-06-26] MEDS: Carvedilol 25 MG TAB PO SCH ×2 (09:32→18:13)
[2020-06-26] MEDS: Polyethylene Glycol 3350 17 GM Packet PO SCH (09:33)
[2020-06-26] MEDS: Calcium Carbonate 500 MG ChewTAB PO SCH ×3 (09:33→18:00)
[2020-06-26] MEDS: cloNIDine 0.2 MG TAB PO SCH ×3 (09:33→21:21)
[2020-06-26] MEDS ORDERED: Heparin 10,000 UNITS/ 10 ML VIAL ONE (14:43)
[2020-06-26] MEDS: Atorvastatin Calcium 40 MG TAB PO SCH (21:20)
[2020-06-26] MEDS: Lantus 1000 UNITS/10 ML VIAL SC SCH (21:29)
[2020-06-27] MEDS: Acetaminophen 500 MG TAB PO SCH ×2 (05:33→11:53)
[2020-06-27] MEDS: hydrALAZINE 25 MG TAB PO SCH ×2 (05:33→14:47)
[2020-06-27] MEDS ORDERED: Heparin 5,000 UNITS/ML VIAL ONE (06:32)
[2020-06-27] MEDS ORDERED: Protamine Sulfate 50 MG/5 ML VIAL ONE (06:32)
[2020-06-27] MEDS ORDERED: Lidocaine 1% w/Epinephrine 1:100K 20 ML VIAL ONE (06:32)
[2020-06-27] MEDS ORDERED: Bupivacaine PF 0.5% 30 ML VIAL ONE (06:32)
[2020-06-27] MEDS ORDERED: Fentanyl 100 MCG/2 ML VIAL ONE ×2 (06:45→07:42)
[2020-06-27] MEDS ORDERED: Propofol 500 MG/50 ML VIAL ONE (06:46)
[2020-06-27] MEDS ORDERED: CEFAZOLIN 2 GM in Premix Bag 1 BAG IVPB SCH (07:30)
[2020-06-27] MEDS ORDERED: Sodium Chloride 0.9% 0 ML ONE (07:45)
[2020-06-27] MEDS ORDERED: Ondansetron PF 4 MG/2 ML Vial ONE (08:15)
[2020-06-27] MEDS ORDERED: Bupivacaine HCl 0.5%/Epinephrine 1:200,000/PF 30 ml Vial ONE (08:15)
[2020-06-27] MEDS: Famotidine 20 MG TAB PO SCH (11:49)
[2020-06-27] MEDS: Ferrous Sulfate 325 MG TAB PO SCH (11:50)
[2020-06-27] MEDS: cloNIDine 0.2 MG TAB PO SCH ×2 (11:50→14:44)
[2020-06-27] MEDS: Senokot S 8.6-50 MG TAB PO SCH (11:50)
[2020-06-27] MEDS: Furosemide 80 MG TAB PO SCH ×2 (11:51→14:45)
[2020-06-27] MEDS: Cholecalciferol 1,000 UNITS (25 MCG) TAB PO SCH (11:52)
[2020-06-27] MEDS: traMADol HCl 50 MG TAB PO SCH (11:52)
[2020-06-27] MEDS: Scopolamine 1.5 mg/72 hour Patch TD SCH (11:52)
[2020-06-27] MEDS: Ascorbic Acid 500 mg Chewable Tablet PO SCH (11:53)
[2020-06-27] MEDS: Calcium Carbonate 500 MG ChewTAB PO SCH ×2 (11:53→14:44)
[2020-06-27] MEDS: Carvedilol 25 MG TAB PO SCH (11:54)
[2020-06-27] MEDS: Polyethylene Glycol 3350 17 GM Packet PO SCH (11:55)
[2020-06-27 15:33] VITALS: BP 147/72; TEMP 98
[2020-06-27] MEDS ORDERED: Magnesium Citrate 300 ML BOT PO SCH (22:00)
== END 2020-06-27 16:36 | disposition swing bed (61) | DRG 480 ==
LOC: ERS 21:00 → SURG B 23:05
PROVIDERS: ADMIT Surgery; ATTEND Surgery
PROC: 0QS606Z Reposition Right Upper Femur with Intramedullary Internal Fixation Device, Open Approach (ICD-10-PCS; principal; 2020-06-20)
PROC: 0JH63XZ Insertion of Tunneled Vascular Access Device into Chest Subcutaneous Tissue and Fascia, Percutaneous Approach (ICD-10-PCS; 2020-06-22)
PROC: 02HV33Z Insertion of Infusion Device into Superior Vena Cava, Percutaneous Approach (ICD-10-PCS; 2020-06-22)
PROC: B518ZZA Fluoroscopy of Superior Vena Cava, Guidance (ICD-10-PCS; 2020-06-22)
PROC: 5A1D70Z Performance of Urinary Filtration, Intermittent, Less than 6 Hours Per Day (ICD-10-PCS; 2020-06-22)
PROC: 30233L1 Transfusion of Nonautologous Fresh Plasma into Peripheral Vein, Percutaneous Approach (ICD-10-PCS; 2020-06-22)
PROC: 30233N1 Transfusion of Nonautologous Red Blood Cells into Peripheral Vein, Percutaneous Approach (ICD-10-PCS; 2020-06-22)
PROC: 30233K1 Transfusion of Nonautologous Frozen Plasma into Peripheral Vein, Percutaneous Approach (ICD-10-PCS; 2020-06-22)
PROC: 031C0ZF Bypass Left Radial Artery to Lower Arm Vein, Open Approach (ICD-10-PCS; 2020-06-27)
DX: S72.141A Displaced intertrochanteric fracture of right femur, initial encounter for closed fracture (principal); N18.6 End stage renal disease; I50.43 Acute on chronic combined systolic (congestive) and diastolic (congestive) heart failure; N17.9 Acute kidney failure, unspecified; L03.115 Cellulitis of right lower limb; L03.116 Cellulitis of left lower limb; J90 Pleural effusion, not elsewhere classified; I13.2 Hypertensive heart and chronic kidney disease with heart failure and with stage 5 chronic kidney disease, or end stage renal disease; E46 Unspecified protein-calorie malnutrition; Z20.822 Contact with and (suspected) exposure to COVID-19; E78.5 Hyperlipidemia, unspecified; E11.22 Type 2 diabetes mellitus with diabetic chronic kidney disease; W18.30XA Fall on same level, unspecified, initial encounter; I25.10 Atherosclerotic heart disease of native coronary artery without angina pectoris; D63.1 Anemia in chronic kidney disease; E11.319 Type 2 diabetes mellitus with unspecified diabetic retinopathy without macular edema; L89.152 Pressure ulcer of sacral region, stage 2; I25.5 Ischemic cardiomyopathy; R09.02 Hypoxemia; E11.40 Type 2 diabetes mellitus with diabetic neuropathy, unspecified; B96.5 Pseudomonas (aeruginosa) (mallei) (pseudomallei) as the cause of diseases classified elsewhere; Z87.891 Personal history of nicotine dependence; Z90.49 Acquired absence of other specified parts of digestive tract; Z79.899 Other long term (current) drug therapy; Z79.82 Long term (current) use of aspirin; Z95.5 Presence of coronary angioplasty implant and graft; Z79.4 Long term (current) use of insulin; Z68.25 Body mass index [BMI] 25.0-25.9, adult; E83.51 Hypocalcemia; E83.39 Other disorders of phosphorus metabolism
CPT/HCPCS: 0240U; 36415; 36416; 36430; 71045; 76000; 80048; 80053; 82947; 83605; 83735; 83880; 84100; 85025; 85384; 85610; 85730; 86580; 86704; 86705; 86706; 86707; 86803; 86850; 86900; 86901; 87040; 87070; 87077; 87186; 87205; 87340; 87350; 87389; 90935; 93005; 93010; 93970; 94760; 96365; 96375; C1713; C1751; C1752; G0257; G0390; J0360; J0690; J0692; J1100; J1644; J1815; J1940; J2001; J2270; J2405; J2550; J2704; J2720; J2916; J3010; J3370; J3480; J3490; J7050; P9016; P9059; Q5105; S0020

== ENCOUNTER 2020-06-30 13:48 | Inpatient (IN) | payer OTHER ==
[2020-06-30] MEDS ORDERED: Dextrose 5% in Water 1,000 ML IV PRN (16:20)
[2020-06-30] MEDS ORDERED: Acetaminophen 325 MG TAB PO PRN (16:20)
[2020-06-30] MEDS ORDERED: Dextrose 50% Abboject 50 ML SYRINGE SLOW IVP PRN (16:20)
[2020-06-30] MEDS ORDERED: Ondansetron PF 4 MG/2 ML Vial IVP PRN (16:20)
[2020-06-30] MEDS ORDERED: Ondansetron ODT 4 MG TAB PO PRN (16:20)
[2020-06-30] MEDS ORDERED: HumaLOG 300 UNITS/3 ML VIAL SC PRN (16:20)
[2020-06-30] MEDS: Scopolamine 1.5 mg/72 hour Patch TD SCH (17:26)
[2020-06-30] MEDS: Carvedilol 25 MG TAB PO SCH (17:27)
[2020-06-30] MEDS: Calcium Carbonate 500 MG ChewTAB PO SCH (17:27)
[2020-06-30] MEDS ORDERED: hydrALAZINE 20 MG/ML VIAL SLOW IVP PRN (20:50)
[2020-06-30] MEDS ORDERED: Heparin 5,000 UNITS/ML VIAL SC SCH (21:00)
[2020-06-30] MEDS: TICAGRELOR 90 MG TABLET PO SCH (21:47)
[2020-06-30] MEDS: hydrALAZINE 25 MG TAB PO SCH (21:53)
[2020-06-30] MEDS: Atorvastatin Calcium 40 MG TAB PO SCH (21:54)
[2020-06-30] MEDS: Aspirin 81 mg Enteric Coated Tablet PO SCH (21:54)
[2020-06-30] MEDS: Ascorbic Acid 500 mg Chewable Tablet PO SCH (21:54)
[2020-06-30] MEDS: Ferrous Sulfate 325 MG TAB PO SCH (21:54)
[2020-06-30] MEDS: cloNIDine 0.2 MG TAB PO SCH (21:54)
[2020-06-30] MEDS: Senokot S 8.6-50 MG TAB PO SCH (21:54)
[2020-06-30] MEDS: traMADol HCl 50 MG TAB PO SCH (21:55)
[2020-06-30] MEDS: Mirtazapine 15 MG Soltab PO SCH (21:55)
[2020-06-30] MEDS: Lantus 1000 UNITS/10 ML VIAL SC SCH (21:56)
[2020-07-01] MEDS: hydrALAZINE 25 MG TAB PO SCH ×3 (04:50→21:27)
[2020-07-01 05:25] LABS: #Basophils 0.1 thou/uL (0.0-0.2); #Eosinphils 0.2 thou/uL (0.0-0.7); #Lymphocytes 0.6 thou/uL (1.20-3.40); #Monocytes 1.6 thou/uL (0.11-0.59); #Neutrophils 11.8 thou/uL (1.40-6.50); %Basophils 0.4 % (0.0-1.0); %Eosinophils 1.5 % (0.0-10.0); %Monocytes 11.1 % (0.0-10.0); %Neutrophils 82.9 % (42.0-75.0); Hemoglobin 7.8 g/dL (14.0-18.0); Mean Corpuscular HGB CONC 31.6 g/dL (32.0-36.0); Mean Corpuscular Hemoglobin 31.3 pg (27.0-31.0); Mean Corpuscular Volume 99.1 fL (78.0-98.0); Platelet Count 389 thou/uL (130-400); RBC Distribution Width 14.9 % (11.5-14.5); Red Blood Cell (RBC) Count 2.49 mill/uL (4.70-6.10); White Blood Cell (WBC) Count 14.3 thou/uL (4.8-10.8)
[2020-07-01 05:51] LABS: Anion Gap 12 mmol/L (10-20); BUN (Urea Nitrogen) 40 mg/dL (8.4-25.7); Calc. Creatinine Clearance 29 mL/min (70-130); Calcium 8.1 mg/dL (7.8-10.44); Carbon Dioxide 30 mmol/L (22-29); Chloride 97 mmol/L (98-107); Glucose 90 mg/dL (70-105); Potassium 3.4 mmol/L (3.5-5.1); Sodium 136 mmol/L (136-145)
[2020-07-01] MEDS ORDERED: Potassium Chloride 20 MEQ TAB PO SCH (06:45)
[2020-07-01 09:04] LABS: Fluid, Triglycerides Less than 11 mg/dL (Not Available); Pleural Fluid, Amylase Less than 30 U/L (Not Available); Pleural Fluid, Glucose 63 mg/dL; Pleural Fluid, LDH 323 U/L (Not Available); Pleural Fluid, Protein 2.8 g/dL
[2020-07-01] MEDS: traMADol HCl 50 MG TAB PO SCH ×2 (09:04→20:23)
[2020-07-01 09:36] LABS: RBC Count-Automated (BF) 5590 /cu.mm; WBC/Nucleated-Auto (BF) 736 uL
[2020-07-01 09:38] LABS: BF Color Yellow; Body Fluid Source Thoracentesis Fluid; Clarity Clear (Clear); Tube # EDTA
[2020-07-01 10:16] LABS: BF Segmented Neutrophils 60 %; Cell Count Non Hematic 26 %; Lymphocytes 14 %
[2020-07-01] MEDS ORDERED: Heparin 10,000 UNITS/ 10 ML VIAL ONE (11:07)
[2020-07-01] MEDS: Carvedilol 25 MG TAB PO SCH ×2 (14:39→17:14)
[2020-07-01] MEDS: Ascorbic Acid 500 mg Chewable Tablet PO SCH ×2 (14:40→20:22)
[2020-07-01] MEDS: cloNIDine 0.2 MG TAB PO SCH ×3 (14:40→20:22)
[2020-07-01] MEDS: Calcium Carbonate 500 MG ChewTAB PO SCH ×3 (14:40→17:43)
[2020-07-01] MEDS: Aspirin 81 mg Enteric Coated Tablet PO SCH ×2 (14:40→20:23)
[2020-07-01] MEDS: Ferrous Sulfate 325 MG TAB PO SCH ×2 (14:41→20:21)
[2020-07-01] MEDS: Polyethylene Glycol 3350 17 GM Packet PO SCH (14:42)
[2020-07-01] MEDS: Senokot S 8.6-50 MG TAB PO SCH ×2 (14:42→20:22)
[2020-07-01] MEDS: Furosemide 80 MG TAB PO SCH ×2 (14:42→15:54)
[2020-07-01] MEDS: TICAGRELOR 90 MG TABLET PO SCH ×2 (14:43→20:21)
[2020-07-01] MEDS: Cholecalciferol 1,000 UNITS (25 MCG) TAB PO SCH (15:54)
[2020-07-01] MEDS: Metolazone 5 MG TAB PO SCH (15:54)
[2020-07-01] MEDS: Famotidine 20 MG TAB PO SCH (15:55)
[2020-07-01] MEDS: Allopurinol 100 MG TAB PO SCH (15:57)
[2020-07-01] MEDS: Heparin 5,000 UNITS/ML VIAL SC SCH (15:58)
[2020-07-01] MEDS: Atorvastatin Calcium 40 MG TAB PO SCH (20:23)
[2020-07-01] MEDS: Mirtazapine 15 MG Soltab PO SCH (20:23)
[2020-07-01] MEDS: Lantus 1000 UNITS/10 ML VIAL SC SCH (20:24)
[2020-07-02 04:20] LABS: #Basophils 0.1 thou/uL (0.0-0.2); #Eosinphils 0.2 thou/uL (0.0-0.7); #Lymphocytes 0.7 thou/uL (1.20-3.40); #Monocytes 1.4 thou/uL (0.11-0.59); #Neutrophils 9.6 thou/uL (1.40-6.50); %Basophils 0.6 % (0.0-1.0); %Eosinophils 1.5 % (0.0-10.0); %Lymphocytes 5.7 % (21.0-51.0); %Monocytes 11.6 % (0.0-10.0); %Neutrophils 80.6 % (42.0-75.0); Hemoglobin 7.1 g/dL (14.0-18.0); Mean Corpuscular HGB CONC 30.6 g/dL (32.0-36.0); Mean Corpuscular Hemoglobin 30.7 pg (27.0-31.0); Mean Platelet Volume 6.4 fL (7.4-10.4); Platelet Count 359 thou/uL (130-400); RBC Distribution Width 14.8 % (11.5-14.5); Red Blood Cell (RBC) Count 2.31 mill/uL (4.70-6.10); White Blood Cell (WBC) Count 11.9 thou/uL (4.8-10.8)
[2020-07-02 04:36] LABS: Anion Gap 9 mmol/L (10-20); BUN (Urea Nitrogen) 25 mg/dL (8.4-25.7); Calc. Creatinine Clearance 40 mL/min (70-130); Calcium 7.7 mg/dL (7.8-10.44); Carbon Dioxide 31 mmol/L (22-29); Chloride 101 mmol/L (98-107); Glucose 181 mg/dL (70-105); Potassium 4.3 mmol/L (3.5-5.1); Sodium 137 mmol/L (136-145)
[2020-07-02] MEDS: hydrALAZINE 25 MG TAB PO SCH ×3 (05:29→21:20)
[2020-07-02] MEDS: Calcium Carbonate 500 MG ChewTAB PO SCH ×3 (09:37→17:09)
[2020-07-02] MEDS: Metolazone 5 MG TAB PO SCH (09:37)
[2020-07-02] MEDS: Aspirin 81 mg Enteric Coated Tablet PO SCH ×2 (09:37→21:17)
[2020-07-02] MEDS: Ascorbic Acid 500 mg Chewable Tablet PO SCH ×2 (09:37→21:17)
[2020-07-02] MEDS: Cholecalciferol 1,000 UNITS (25 MCG) TAB PO SCH (09:37)
[2020-07-02] MEDS: Ferrous Sulfate 325 MG TAB PO SCH ×2 (09:38→21:19)
[2020-07-02] MEDS: Senokot S 8.6-50 MG TAB PO SCH ×2 (09:38→21:19)
[2020-07-02] MEDS: Carvedilol 25 MG TAB PO SCH ×2 (09:39→17:10)
[2020-07-02] MEDS: cloNIDine 0.2 MG TAB PO SCH ×3 (09:39→21:20)
[2020-07-02] MEDS: Furosemide 80 MG TAB PO SCH ×2 (09:40→15:44)
[2020-07-02] MEDS: traMADol HCl 50 MG TAB PO SCH ×2 (09:40→21:18)
[2020-07-02] MEDS: TICAGRELOR 90 MG TABLET PO SCH ×2 (09:40→21:20)
[2020-07-02] MEDS: Polyethylene Glycol 3350 17 GM Packet PO SCH (09:41)
[2020-07-02] MEDS: Heparin 5,000 UNITS/ML VIAL SC SCH ×3 (09:41→21:17)
[2020-07-02] MEDS: Famotidine 20 MG TAB PO SCH (09:41)
[2020-07-02 15:36] LABS: Hemoglobin 7.9 g/dL (14.0-18.0)
[2020-07-02] MEDS: Mirtazapine 15 MG Soltab PO SCH (21:17)
[2020-07-02] MEDS: Atorvastatin Calcium 40 MG TAB PO SCH (21:17)
[2020-07-02] MEDS: Lantus 1000 UNITS/10 ML VIAL SC SCH (21:38)
[2020-07-03 04:37] LABS: #Basophils 0.1 thou/uL (0.0-0.2); #Eosinphils 0.1 thou/uL (0.0-0.7); #Lymphocytes 0.6 thou/uL (1.20-3.40); #Monocytes 1.3 thou/uL (0.11-0.59); #Neutrophils 9.2 thou/uL (1.40-6.50); %Basophils 0.5 % (0.0-1.0); %Eosinophils 0.5 % (0.0-10.0); %Lymphocytes 5.7 % (21.0-51.0); %Monocytes 11.1 % (0.0-10.0); %Neutrophils 82.2 % (42.0-75.0); Hemoglobin 7.3 g/dL (14.0-18.0); Mean Corpuscular HGB CONC 31.3 g/dL (32.0-36.0); Mean Corpuscular Hemoglobin 30.8 pg (27.0-31.0); Mean Corpuscular Volume 98.6 fL (78.0-98.0); Mean Platelet Volume 6.5 fL (7.4-10.4); Platelet Count 348 thou/uL (130-400); RBC Distribution Width 14.8 % (11.5-14.5); Red Blood Cell (RBC) Count 2.36 mill/uL (4.70-6.10); White Blood Cell (WBC) Count 11.2 thou/uL (4.8-10.8)
[2020-07-03 04:58] LABS: Anion Gap 11 mmol/L (10-20); BUN (Urea Nitrogen) 34 mg/dL (8.4-25.7); Calc. Creatinine Clearance 28 mL/min (70-130); Calcium 8.1 mg/dL (7.8-10.44); Carbon Dioxide 29 mmol/L (22-29); Chloride 100 mmol/L (98-107); Glucose 202 mg/dL (70-105); Potassium 4.3 mmol/L (3.5-5.1); Sodium 136 mmol/L (136-145)
[2020-07-03] MEDS: hydrALAZINE 25 MG TAB PO SCH ×3 (06:20→21:21)
[2020-07-03] MEDS: HumaLOG 300 UNITS/3 ML VIAL SC PRN ×3 (06:27→18:20)
[2020-07-03] MEDS: Carvedilol 25 MG TAB PO SCH ×2 (09:55→16:25)
[2020-07-03] MEDS: traMADol HCl 50 MG TAB PO SCH ×3 (09:55→21:56)
[2020-07-03] MEDS: cloNIDine 0.2 MG TAB PO SCH ×3 (09:56→21:43)
[2020-07-03] MEDS: Aspirin 81 mg Enteric Coated Tablet PO SCH ×2 (09:56→21:43)
[2020-07-03] MEDS: Allopurinol 100 MG TAB PO SCH (09:56)
[2020-07-03] MEDS: Famotidine 20 MG TAB PO SCH (09:56)
[2020-07-03] MEDS: Calcium Carbonate 500 MG ChewTAB PO SCH ×3 (09:56→16:27)
[2020-07-03] MEDS: Ascorbic Acid 500 mg Chewable Tablet PO SCH ×2 (09:56→21:18)
[2020-07-03] MEDS: Cholecalciferol 1,000 UNITS (25 MCG) TAB PO SCH (09:56)
[2020-07-03] MEDS: Ferrous Sulfate 325 MG TAB PO SCH ×2 (09:56→21:21)
[2020-07-03] MEDS: Senokot S 8.6-50 MG TAB PO SCH ×2 (09:57→21:20)
[2020-07-03] MEDS: Polyethylene Glycol 3350 17 GM Packet PO SCH (09:57)
[2020-07-03] MEDS: TICAGRELOR 90 MG TABLET PO SCH ×2 (09:57→21:44)
[2020-07-03] MEDS: Metolazone 5 MG TAB PO SCH (09:57)
[2020-07-03] MEDS: Furosemide 80 MG TAB PO SCH ×2 (09:57→14:19)
[2020-07-03] MEDS: Heparin 5,000 UNITS/ML VIAL SC SCH ×3 (09:57→21:22)
[2020-07-03 16:23] LABS: Hemoglobin 8.5 g/dL (14.0-18.0)
[2020-07-03] MEDS: Scopolamine 1.5 mg/72 hour Patch TD SCH (16:26)
[2020-07-03] MEDS: Lantus 1000 UNITS/10 ML VIAL SC SCH (21:22)
[2020-07-03] MEDS: Mirtazapine 15 MG Soltab PO SCH (21:43)
[2020-07-03] MEDS: Atorvastatin Calcium 40 MG TAB PO SCH (21:44)
[2020-07-04 04:26] LABS: #Basophils 0.1 thou/uL (0.0-0.2); #Eosinphils 0.1 thou/uL (0.0-0.7); #Lymphocytes 0.6 thou/uL (1.20-3.40); #Monocytes 1.5 thou/uL (0.11-0.59); %Basophils 0.5 % (0.0-1.0); %Eosinophils 0.9 % (0.0-10.0); %Lymphocytes 5.2 % (21.0-51.0); %Monocytes 11.9 % (0.0-10.0); %Neutrophils 81.5 % (42.0-75.0); Hemoglobin 7.9 g/dL (14.0-18.0); Mean Corpuscular HGB CONC 31.8 g/dL (32.0-36.0); Mean Corpuscular Hemoglobin 31.2 pg (27.0-31.0); Mean Corpuscular Volume 98.3 fL (78.0-98.0); Mean Platelet Volume 6.5 fL (7.4-10.4); Platelet Count 313 thou/uL (130-400); RBC Distribution Width 14.1 % (11.5-14.5); Red Blood Cell (RBC) Count 2.54 mill/uL (4.70-6.10); White Blood Cell (WBC) Count 12.2 thou/uL (4.8-10.8)
[2020-07-04 04:50] LABS: Anion Gap 12 mmol/L (10-20); BUN (Urea Nitrogen) 42 mg/dL (8.4-25.7); Calc. Creatinine Clearance 22 mL/min (70-130); Calcium 7.7 mg/dL (7.8-10.44); Carbon Dioxide 30 mmol/L (22-29); Chloride 98 mmol/L (98-107); Glucose 188 mg/dL (70-105); Potassium 4.6 mmol/L (3.5-5.1); Sodium 135 mmol/L (136-145)
[2020-07-04] MEDS: hydrALAZINE 25 MG TAB PO SCH ×3 (05:55→22:47)
[2020-07-04] MEDS ORDERED: Heparin 10,000 UNITS/ 10 ML VIAL ONE (08:42)
[2020-07-04 10:20] LABS: Hemoglobin 8.2 g/dL (14.0-18.0); Mean Corpuscular HGB CONC 31.7 g/dL (32.0-36.0); Mean Corpuscular Hemoglobin 31.2 pg (27.0-31.0); Mean Corpuscular Volume 98.4 fL (78.0-98.0); Mean Platelet Volume 6.6 fL (7.4-10.4); Platelet Count 328 thou/uL (130-400); RBC Distribution Width 14.1 % (11.5-14.5); Red Blood Cell (RBC) Count 2.64 mill/uL (4.70-6.10); Reticulocyte Count 1.4 % (0.5-1.5)
[2020-07-04 10:24] LABS: Bilirubin, Total 0.7 mg/dL (0.2-1.2)
[2020-07-04] MEDS: Famotidine 20 MG TAB PO SCH (10:53)
[2020-07-04] MEDS: Cholecalciferol 1,000 UNITS (25 MCG) TAB PO SCH (10:53)
[2020-07-04] MEDS: cloNIDine 0.2 MG TAB PO SCH ×4 (10:53→21:03)
[2020-07-04] MEDS: Ascorbic Acid 500 mg Chewable Tablet PO SCH ×2 (10:53→21:02)
[2020-07-04] MEDS: Carvedilol 25 MG TAB PO SCH ×3 (10:53→16:50)
[2020-07-04] MEDS: Calcium Carbonate 500 MG ChewTAB PO SCH ×3 (10:53→16:51)
[2020-07-04] MEDS: Aspirin 81 mg Enteric Coated Tablet PO SCH ×2 (10:53→21:03)
[2020-07-04] MEDS: Heparin 5,000 UNITS/ML VIAL SC SCH ×3 (10:54→21:04)
[2020-07-04] MEDS: Metolazone 5 MG TAB PO SCH (10:54)
[2020-07-04] MEDS: Senokot S 8.6-50 MG TAB PO SCH ×2 (10:54→21:01)
[2020-07-04] MEDS: Polyethylene Glycol 3350 17 GM Packet PO SCH (10:54)
[2020-07-04] MEDS: Ferrous Sulfate 325 MG TAB PO SCH ×2 (10:54→21:03)
[2020-07-04] MEDS: Furosemide 80 MG TAB PO SCH ×2 (10:54→13:58)
[2020-07-04] MEDS: TICAGRELOR 90 MG TABLET PO SCH ×2 (10:55→21:02)
[2020-07-04 11:46] LABS: Band 4 % (5-11); Lymphocytes 5 % (21-51); MDiff Complete? YES; Monocytes 11 % (0-10); Neutrophil 80 % (42-75); Platelet Morphology Comment Appears Adequate; Polychromasia SLIGHT = 2-3 cells (100X) (0-2/hpf)
[2020-07-04] MEDS: traMADol HCl 50 MG TAB PO SCH ×3 (12:14→21:03)
[2020-07-04] MEDS: HumaLOG 300 UNITS/3 ML VIAL SC PRN (16:47)
[2020-07-04] MEDS: EPOETIN ALFA-EPBX (ESRD) 4,000 UNIT/ML VIAL SC SCH (16:50)
[2020-07-04] MEDS: EPOETIN ALFA-EPBX (ESRD) 3,000 UNIT/ML VIAL SC SCH (16:50)
[2020-07-04] MEDS ORDERED: hydrALAZINE 25 MG TAB PO SCH (17:00)
[2020-07-04] MEDS: Atorvastatin Calcium 40 MG TAB PO SCH (21:02)
[2020-07-04] MEDS: Mirtazapine 15 MG Soltab PO SCH (21:02)
[2020-07-04] MEDS: Lantus 1000 UNITS/10 ML VIAL SC SCH (21:04)
[2020-07-05 05:24] LABS: Anion Gap 11 mmol/L (10-20); BUN (Urea Nitrogen) 25 mg/dL (8.4-25.7); Calc. Creatinine Clearance 33 mL/min (70-130); Calcium 7.8 mg/dL (7.8-10.44); Carbon Dioxide 28 mmol/L (22-29); Chloride 102 mmol/L (98-107); Glucose 90 mg/dL (70-105); Potassium 4.4 mmol/L (3.5-5.1); Sodium 137 mmol/L (136-145)
[2020-07-05] MEDS: hydrALAZINE 25 MG TAB PO SCH ×3 (05:35→17:48)
[2020-07-05 05:53] LABS: Band 15 % (5-11); Hemoglobin 8.2 g/dL (14.0-18.0); Lymphocytes 3 % (21-51); MDiff Complete? YES; Mean Corpuscular HGB CONC 31.2 g/dL (32.0-36.0); Mean Corpuscular Hemoglobin 30.9 pg (27.0-31.0); Mean Corpuscular Volume 99.1 fL (78.0-98.0); Mean Platelet Volume 6.4 fL (7.4-10.4); Monocytes 9 % (0-10); Neutrophil 72 % (42-75); Platelet Count 283 thou/uL (130-400); RBC Distribution Width 14.2 % (11.5-14.5); Red Blood Cell (RBC) Count 2.65 mill/uL (4.70-6.10); White Blood Cell (WBC) Count 11.6 thou/uL (4.8-10.8)
[2020-07-05] MEDS ORDERED: cloNIDine 0.2 MG TAB PO SCH (06:25)
[2020-07-05] MEDS: Calcium Carbonate 500 MG ChewTAB PO SCH ×3 (08:02→17:46)
[2020-07-05] MEDS: Heparin 5,000 UNITS/ML VIAL SC SCH ×3 (08:02→20:14)
[2020-07-05] MEDS: Polyethylene Glycol 3350 17 GM Packet PO SCH (08:02)
[2020-07-05] MEDS: traMADol HCl 50 MG TAB PO SCH ×2 (08:03→20:13)
[2020-07-05] MEDS: Aspirin 81 mg Enteric Coated Tablet PO SCH ×2 (08:03→20:13)
[2020-07-05] MEDS: Cholecalciferol 1,000 UNITS (25 MCG) TAB PO SCH (08:03)
[2020-07-05] MEDS: Furosemide 80 MG TAB PO SCH ×2 (08:03→15:44)
[2020-07-05] MEDS: Famotidine 20 MG TAB PO SCH (08:03)
[2020-07-05] MEDS: Metolazone 5 MG TAB PO SCH (08:04)
[2020-07-05] MEDS: Senokot S 8.6-50 MG TAB PO SCH ×2 (08:04→20:12)
[2020-07-05] MEDS: Ferrous Sulfate 325 MG TAB PO SCH ×2 (08:04→20:12)
[2020-07-05] MEDS: Ascorbic Acid 500 mg Chewable Tablet PO SCH ×2 (08:05→20:13)
[2020-07-05] MEDS: Carvedilol 25 MG TAB PO SCH ×2 (08:05→17:46)
[2020-07-05] MEDS: TICAGRELOR 90 MG TABLET PO SCH ×2 (08:05→20:12)
[2020-07-05] MEDS: Allopurinol 100 MG TAB PO SCH (08:08)
[2020-07-05] MEDS ORDERED: cloNIDine 0.3 MG TAB PO SCH (09:00)
[2020-07-05] MEDS: cloNIDine 0.2 MG TAB PO SCH ×2 (15:44→20:12)
[2020-07-05] MEDS: Atorvastatin Calcium 40 MG TAB PO SCH (20:12)
[2020-07-05] MEDS: Mirtazapine 15 MG Soltab PO SCH (20:13)
[2020-07-05] MEDS: Lantus 1000 UNITS/10 ML VIAL SC SCH (21:48)
[2020-07-06] MEDS: hydrALAZINE 25 MG TAB PO SCH ×3 (03:06→17:44)
[2020-07-06 04:50] LABS: #Eosinphils 0.1 thou/uL (0.0-0.7); #Lymphocytes 0.6 thou/uL (1.20-3.40); #Monocytes 1.5 thou/uL (0.11-0.59); #Neutrophils 9.8 thou/uL (1.40-6.50); %Basophils 0.4 % (0.0-1.0); %Eosinophils 0.8 % (0.0-10.0); %Lymphocytes 5.2 % (21.0-51.0); %Monocytes 12.7 % (0.0-10.0); %Neutrophils 80.9 % (42.0-75.0); Hemoglobin 8.7 g/dL (14.0-18.0); Mean Corpuscular HGB CONC 31.4 g/dL (32.0-36.0); Mean Corpuscular Hemoglobin 31.1 pg (27.0-31.0); Mean Platelet Volume 6.8 fL (7.4-10.4); Platelet Count 269 thou/uL (130-400); RBC Distribution Width 14.1 % (11.5-14.5); Red Blood Cell (RBC) Count 2.79 mill/uL (4.70-6.10); White Blood Cell (WBC) Count 12.1 thou/uL (4.8-10.8)
[2020-07-06 05:16] LABS: Anion Gap 14 mmol/L (10-20); BUN (Urea Nitrogen) 37 mg/dL (8.4-25.7); Calc. Creatinine Clearance 24 mL/min (70-130); Calcium 8.3 mg/dL (7.8-10.44); Carbon Dioxide 28 mmol/L (22-29); Chloride 98 mmol/L (98-107); Glucose 117 mg/dL (70-105); Potassium 4.7 mmol/L (3.5-5.1); Sodium 135 mmol/L (136-145)
[2020-07-06] MEDS ORDERED: Heparin 10,000 UNITS/ 10 ML VIAL ONE (08:46)
[2020-07-06] MEDS ORDERED: NIFEdipine XL 30 MG TAB PO SCH (09:00)
[2020-07-06] MEDS: Aspirin 81 mg Enteric Coated Tablet PO SCH ×2 (10:07→21:19)
[2020-07-06] MEDS: Calcium Carbonate 500 MG ChewTAB PO SCH ×3 (10:07→17:39)
[2020-07-06] MEDS: Cholecalciferol 1,000 UNITS (25 MCG) TAB PO SCH (10:07)
[2020-07-06] MEDS: Ascorbic Acid 500 mg Chewable Tablet PO SCH ×2 (10:07→21:19)
[2020-07-06] MEDS: TICAGRELOR 90 MG TABLET PO SCH ×2 (10:08→21:21)
[2020-07-06] MEDS: Furosemide 80 MG TAB PO SCH ×2 (10:08→14:18)
[2020-07-06] MEDS: Polyethylene Glycol 3350 17 GM Packet PO SCH (10:08)
[2020-07-06] MEDS: Heparin 5,000 UNITS/ML VIAL SC SCH ×3 (10:08→21:22)
[2020-07-06] MEDS: Senokot S 8.6-50 MG TAB PO SCH ×2 (10:08→21:17)
[2020-07-06] MEDS: Metolazone 5 MG TAB PO SCH (10:08)
[2020-07-06] MEDS: Famotidine 20 MG TAB PO SCH (10:08)
[2020-07-06] MEDS: Ferrous Sulfate 325 MG TAB PO SCH ×2 (10:08→21:19)
[2020-07-06] MEDS: Carvedilol 25 MG TAB PO SCH ×2 (12:10→17:39)
[2020-07-06] MEDS: cloNIDine 0.2 MG TAB PO SCH ×3 (12:11→21:18)
[2020-07-06] MEDS: traMADol HCl 50 MG TAB PO SCH ×2 (12:11→21:19)
[2020-07-06] MEDS: Scopolamine 1.5 mg/72 hour Patch TD SCH (17:39)
[2020-07-06] MEDS: Mirtazapine 15 MG Soltab PO SCH (21:17)
[2020-07-06] MEDS: Atorvastatin Calcium 40 MG TAB PO SCH (21:21)
[2020-07-06] MEDS: Lantus 1000 UNITS/10 ML VIAL SC SCH (21:22)
[2020-07-07] MEDS: hydrALAZINE 25 MG TAB PO SCH ×3 (02:35→18:25)
[2020-07-07 04:22] LABS: #Basophils 0.1 thou/uL (0.0-0.2); #Eosinphils 0.1 thou/uL (0.0-0.7); #Lymphocytes 0.8 thou/uL (1.20-3.40); #Monocytes 1.5 thou/uL (0.11-0.59); #Neutrophils 9.5 thou/uL (1.40-6.50); %Basophils 0.7 % (0.0-1.0); %Eosinophils 0.7 % (0.0-10.0); %Monocytes 12.6 % (0.0-10.0); Hemoglobin 8.5 g/dL (14.0-18.0); Mean Corpuscular HGB CONC 31.8 g/dL (32.0-36.0); Mean Corpuscular Hemoglobin 31.3 pg (27.0-31.0); Mean Corpuscular Volume 98.5 fL (78.0-98.0); Platelet Count 273 thou/uL (130-400); RBC Distribution Width 14.2 % (11.5-14.5); Red Blood Cell (RBC) Count 2.72 mill/uL (4.70-6.10)
[2020-07-07 04:35] LABS: Anion Gap 13 mmol/L (10-20); BUN (Urea Nitrogen) 25 mg/dL (8.4-25.7); Calc. Creatinine Clearance 33 mL/min (70-130); Carbon Dioxide 27 mmol/L (22-29); Chloride 100 mmol/L (98-107); Glucose 97 mg/dL (70-105); Potassium 4.3 mmol/L (3.5-5.1); Sodium 136 mmol/L (136-145)
[2020-07-07] MEDS ORDERED: NIFEdipine XL 30 MG TAB PO SCH (07:36)
[2020-07-07] MEDS: Heparin 5,000 UNITS/ML VIAL SC SCH ×3 (08:48→20:42)
[2020-07-07] MEDS: cloNIDine 0.2 MG TAB PO SCH ×3 (08:48→20:41)
[2020-07-07] MEDS: Metolazone 5 MG TAB PO SCH (08:48)
[2020-07-07] MEDS: Cholecalciferol 1,000 UNITS (25 MCG) TAB PO SCH (08:48)
[2020-07-07] MEDS: Senokot S 8.6-50 MG TAB PO SCH ×2 (08:49→20:42)
[2020-07-07] MEDS: traMADol HCl 50 MG TAB PO SCH ×2 (08:49→20:40)
[2020-07-07] MEDS: TICAGRELOR 90 MG TABLET PO SCH ×2 (08:49→20:40)
[2020-07-07] MEDS: Famotidine 20 MG TAB PO SCH (08:49)
[2020-07-07] MEDS: Aspirin 81 mg Enteric Coated Tablet PO SCH ×2 (08:49→20:38)
[2020-07-07] MEDS: Ascorbic Acid 500 mg Chewable Tablet PO SCH ×2 (08:49→20:40)
[2020-07-07] MEDS: Carvedilol 25 MG TAB PO SCH ×2 (08:50→17:34)
[2020-07-07] MEDS: Calcium Carbonate 500 MG ChewTAB PO SCH ×3 (08:50→17:38)
[2020-07-07] MEDS: Furosemide 80 MG TAB PO SCH ×2 (08:50→15:26)
[2020-07-07] MEDS: Ferrous Sulfate 325 MG TAB PO SCH ×2 (08:50→20:38)
[2020-07-07] MEDS: Polyethylene Glycol 3350 17 GM Packet PO SCH (08:51)
[2020-07-07] MEDS: Allopurinol 100 MG TAB PO SCH (08:54)
[2020-07-07] MEDS ORDERED: NIFEdipine XL 60 MG TAB PO SCH (09:00)
[2020-07-07 12:35] VITALS: BMI 21.9
[2020-07-07] MEDS: Mirtazapine 15 MG Soltab PO SCH (20:38)
[2020-07-07] MEDS: Atorvastatin Calcium 40 MG TAB PO SCH (20:38)
[2020-07-07] MEDS: Lantus 1000 UNITS/10 ML VIAL SC SCH (20:42)
[2020-07-08] MEDS: hydrALAZINE 25 MG TAB PO SCH ×3 (03:37→17:45)
[2020-07-08 04:24] LABS: #Basophils 0.1 thou/uL (0.0-0.2); #Eosinphils 0.1 thou/uL (0.0-0.7); #Lymphocytes 0.6 thou/uL (1.20-3.40); #Monocytes 1.7 thou/uL (0.11-0.59); #Neutrophils 9.2 thou/uL (1.40-6.50); %Basophils 0.7 % (0.0-1.0); %Eosinophils 0.9 % (0.0-10.0); %Lymphocytes 5.2 % (21.0-51.0); %Monocytes 14.2 % (0.0-10.0); Hemoglobin 8.6 g/dL (14.0-18.0); Mean Corpuscular HGB CONC 32.1 g/dL (32.0-36.0); Mean Corpuscular Hemoglobin 31.7 pg (27.0-31.0); Mean Corpuscular Volume 98.6 fL (78.0-98.0); Platelet Count 256 thou/uL (130-400); RBC Distribution Width 14.4 % (11.5-14.5); Red Blood Cell (RBC) Count 2.71 mill/uL (4.70-6.10); White Blood Cell (WBC) Count 11.7 thou/uL (4.8-10.8)
[2020-07-08 04:41] LABS: Anion Gap 12 mmol/L (10-20); BUN (Urea Nitrogen) 36 mg/dL (8.4-25.7); Calc. Creatinine Clearance 25 mL/min (70-130); Calcium 8.1 mg/dL (7.8-10.44); Carbon Dioxide 29 mmol/L (22-29); Chloride 99 mmol/L (98-107); Glucose 102 mg/dL (70-105); Potassium 4.3 mmol/L (3.5-5.1); Sodium 136 mmol/L (136-145)
[2020-07-08] MEDS ORDERED: NIFEdipine XL 60 MG TAB PO SCH (09:00)
[2020-07-08] MEDS ORDERED: Heparin 10,000 UNITS/ 10 ML VIAL ONE (10:30)
[2020-07-08] MEDS: Cholecalciferol 1,000 UNITS (25 MCG) TAB PO SCH (12:14)
[2020-07-08] MEDS: Carvedilol 25 MG TAB PO SCH ×2 (12:14→17:45)
[2020-07-08] MEDS: Senokot S 8.6-50 MG TAB PO SCH ×2 (12:14→20:46)
[2020-07-08] MEDS: Famotidine 20 MG TAB PO SCH (12:14)
[2020-07-08] MEDS: Ascorbic Acid 500 mg Chewable Tablet PO SCH ×2 (12:15→20:45)
[2020-07-08] MEDS: Aspirin 81 mg Enteric Coated Tablet PO SCH ×2 (12:15→20:45)
[2020-07-08] MEDS: TICAGRELOR 90 MG TABLET PO SCH ×2 (12:15→20:43)
[2020-07-08] MEDS: Ferrous Sulfate 325 MG TAB PO SCH ×2 (12:15→20:43)
[2020-07-08] MEDS: Metolazone 5 MG TAB PO SCH (12:15)
[2020-07-08] MEDS: Furosemide 80 MG TAB PO SCH ×2 (12:15→15:10)
[2020-07-08] MEDS: Polyethylene Glycol 3350 17 GM Packet PO SCH (12:16)
[2020-07-08] MEDS: Calcium Carbonate 500 MG ChewTAB PO SCH ×3 (12:16→17:46)
[2020-07-08] MEDS: Heparin 5,000 UNITS/ML VIAL SC SCH ×3 (12:16→20:46)
[2020-07-08] MEDS: cloNIDine 0.2 MG TAB PO SCH ×3 (12:16→20:45)
[2020-07-08] MEDS: traMADol HCl 50 MG TAB PO SCH ×2 (12:17→20:43)
[2020-07-08] MEDS: Atorvastatin Calcium 40 MG TAB PO SCH (20:44)
[2020-07-08] MEDS: Mirtazapine 15 MG Soltab PO SCH (20:44)
[2020-07-08] MEDS: Lantus 1000 UNITS/10 ML VIAL SC SCH (20:46)
[2020-07-09] MEDS: hydrALAZINE 25 MG TAB PO SCH ×3 (03:11→21:18)
[2020-07-09 05:16] LABS: Anion Gap 12 mmol/L (10-20); BUN (Urea Nitrogen) 21 mg/dL (8.4-25.7); Calc. Creatinine Clearance 33 mL/min (70-130); Calcium 8.1 mg/dL (7.8-10.44); Carbon Dioxide 30 mmol/L (22-29); Chloride 99 mmol/L (98-107); Glucose 79 mg/dL (70-105); Potassium 4.3 mmol/L (3.5-5.1); Sodium 137 mmol/L (136-145)
[2020-07-09] MEDS: Famotidine 20 MG TAB PO SCH (09:58)
[2020-07-09] MEDS: cloNIDine 0.2 MG TAB PO SCH ×3 (09:58→21:24)
[2020-07-09] MEDS: Ascorbic Acid 500 mg Chewable Tablet PO SCH ×2 (09:59→21:20)
[2020-07-09] MEDS: TICAGRELOR 90 MG TABLET PO SCH ×2 (09:59→21:20)
[2020-07-09] MEDS: Metolazone 5 MG TAB PO SCH (09:59)
[2020-07-09] MEDS: Aspirin 81 mg Enteric Coated Tablet PO SCH ×2 (09:59→21:18)
[2020-07-09] MEDS: Senokot S 8.6-50 MG TAB PO SCH ×2 (09:59→21:18)
[2020-07-09] MEDS: Carvedilol 25 MG TAB PO SCH ×2 (09:59→16:04)
[2020-07-09] MEDS: Heparin 5,000 UNITS/ML VIAL SC SCH ×3 (09:59→21:25)
[2020-07-09] MEDS: Furosemide 80 MG TAB PO SCH ×2 (10:00→15:58)
[2020-07-09] MEDS: Polyethylene Glycol 3350 17 GM Packet PO SCH (10:00)
[2020-07-09] MEDS: Ferrous Sulfate 325 MG TAB PO SCH ×2 (10:00→21:19)
[2020-07-09] MEDS: Cholecalciferol 1,000 UNITS (25 MCG) TAB PO SCH (10:00)
[2020-07-09] MEDS: traMADol HCl 50 MG TAB PO SCH ×2 (10:00→21:20)
[2020-07-09] MEDS: Allopurinol 100 MG TAB PO SCH (10:05)
[2020-07-09] MEDS: Calcium Carbonate 500 MG ChewTAB PO SCH ×3 (10:05→17:55)
[2020-07-09] MEDS: Scopolamine 1.5 mg/72 hour Patch TD SCH (16:02)
[2020-07-09] MEDS: Atorvastatin Calcium 40 MG TAB PO SCH (21:19)
[2020-07-09] MEDS: Mirtazapine 15 MG Soltab PO SCH (21:20)
[2020-07-09] MEDS: Lantus 1000 UNITS/10 ML VIAL SC SCH (21:26)
[2020-07-10 04:57] LABS: #Basophils 0.1 thou/uL (0.0-0.2); #Eosinphils 0.2 thou/uL (0.0-0.7); #Lymphocytes 0.8 thou/uL (1.20-3.40); #Monocytes 1.7 thou/uL (0.11-0.59); #Neutrophils 11.3 thou/uL (1.40-6.50); %Basophils 0.5 % (0.0-1.0); %Eosinophils 1.2 % (0.0-10.0); %Lymphocytes 5.3 % (21.0-51.0); %Monocytes 12.3 % (0.0-10.0); %Neutrophils 80.7 % (42.0-75.0); Hemoglobin 8.2 g/dL (14.0-18.0); Mean Corpuscular Volume 99.9 fL (78.0-98.0); Mean Platelet Volume 6.7 fL (7.4-10.4); Platelet Count 271 thou/uL (130-400); RBC Distribution Width 14.2 % (11.5-14.5); Red Blood Cell (RBC) Count 2.63 mill/uL (4.70-6.10)
[2020-07-10 05:20] LABS: Anion Gap 12 mmol/L (10-20); BUN (Urea Nitrogen) 34 mg/dL (8.4-25.7); Calc. Creatinine Clearance 26 mL/min (70-130); Carbon Dioxide 31 mmol/L (22-29); Chloride 97 mmol/L (98-107); Glucose 174 mg/dL (70-105); Potassium 4.8 mmol/L (3.5-5.1); Sodium 135 mmol/L (136-145)
[2020-07-10] MEDS ORDERED: hydrALAZINE 25 MG TAB PO SCH (06:00)
[2020-07-10] MEDS: Carvedilol 25 MG TAB PO SCH ×2 (09:45→17:28)
[2020-07-10] MEDS: Aspirin 81 mg Enteric Coated Tablet PO SCH ×2 (09:45→21:52)
[2020-07-10] MEDS: Metolazone 5 MG TAB PO SCH (09:46)
[2020-07-10] MEDS: Famotidine 20 MG TAB PO SCH (09:46)
[2020-07-10] MEDS: Ascorbic Acid 500 mg Chewable Tablet PO SCH ×2 (09:47→21:52)
[2020-07-10] MEDS: traMADol HCl 50 MG TAB PO SCH ×2 (09:47→21:55)
[2020-07-10] MEDS: Senokot S 8.6-50 MG TAB PO SCH ×2 (09:48→21:54)
[2020-07-10] MEDS: Ferrous Sulfate 325 MG TAB PO SCH ×2 (09:49→21:52)
[2020-07-10] MEDS: Cholecalciferol 1,000 UNITS (25 MCG) TAB PO SCH (09:49)
[2020-07-10] MEDS: hydrALAZINE 25 MG TAB PO SCH ×2 (09:49→21:52)
[2020-07-10] MEDS: Calcium Carbonate 500 MG ChewTAB PO SCH ×3 (09:50→17:28)
[2020-07-10] MEDS: Furosemide 80 MG TAB PO SCH ×2 (09:50→14:19)
[2020-07-10] MEDS: cloNIDine 0.1 MG TAB PO SCH ×2 (09:51→21:52)
[2020-07-10] MEDS: Polyethylene Glycol 3350 17 GM Packet PO SCH (09:51)
[2020-07-10] MEDS: Heparin 5,000 UNITS/ML VIAL SC SCH ×3 (09:51→21:56)
[2020-07-10] MEDS: TICAGRELOR 90 MG TABLET PO SCH ×2 (09:52→21:54)
[2020-07-10] MEDS: Mirtazapine 15 MG Soltab PO SCH (21:53)
[2020-07-10] MEDS: Atorvastatin Calcium 40 MG TAB PO SCH (21:54)
[2020-07-10] MEDS: Lantus 1000 UNITS/10 ML VIAL SC SCH (21:56)
[2020-07-11 05:43] LABS: Anion Gap 15 mmol/L (10-20); BUN (Urea Nitrogen) 43 mg/dL (8.4-25.7); Calc. Creatinine Clearance 21 mL/min (70-130); Calcium 8.2 mg/dL (7.8-10.44); Carbon Dioxide 30 mmol/L (22-29); Chloride 95 mmol/L (98-107); Glucose 110 mg/dL (70-105); Potassium 4.9 mmol/L (3.5-5.1); Sodium 135 mmol/L (136-145)
[2020-07-11] MEDS ORDERED: Heparin 10,000 UNITS/ 10 ML VIAL ONE (10:49)
[2020-07-11 11:40] LABS: #Basophils 0.1 thou/uL (0.0-0.2); #Eosinphils 0.1 thou/uL (0.0-0.7); #Lymphocytes 0.5 thou/uL (1.20-3.40); #Monocytes 1.5 thou/uL (0.11-0.59); #Neutrophils 13.4 thou/uL (1.40-6.50); %Basophils 0.4 % (0.0-1.0); %Eosinophils 0.8 % (0.0-10.0); %Monocytes 9.9 % (0.0-10.0); %Neutrophils 85.9 % (42.0-75.0); Hemoglobin 8.9 g/dL (14.0-18.0); Mean Corpuscular HGB CONC 31.8 g/dL (32.0-36.0); Mean Corpuscular Hemoglobin 31.4 pg (27.0-31.0); Mean Corpuscular Volume 98.7 fL (78.0-98.0); Mean Platelet Volume 6.6 fL (7.4-10.4); Platelet Count 327 thou/uL (130-400); RBC Distribution Width 14.2 % (11.5-14.5); Red Blood Cell (RBC) Count 2.83 mill/uL (4.70-6.10); White Blood Cell (WBC) Count 15.6 thou/uL (4.8-10.8)
[2020-07-11] MEDS: Carvedilol 25 MG TAB PO SCH ×2 (13:22→17:31)
[2020-07-11] MEDS: traMADol HCl 50 MG TAB PO SCH (13:22)
[2020-07-11] MEDS: Aspirin 81 mg Enteric Coated Tablet PO SCH (13:23)
[2020-07-11] MEDS: Allopurinol 100 MG TAB PO SCH (13:23)
[2020-07-11] MEDS: Calcium Carbonate 500 MG ChewTAB PO SCH ×3 (13:23→17:31)
[2020-07-11] MEDS: Ascorbic Acid 500 mg Chewable Tablet PO SCH (13:23)
[2020-07-11] MEDS: Ferrous Sulfate 325 MG TAB PO SCH (13:24)
[2020-07-11] MEDS: Furosemide 80 MG TAB PO SCH ×2 (13:24→13:56)
[2020-07-11] MEDS: Heparin 5,000 UNITS/ML VIAL SC SCH ×2 (13:24→13:56)
[2020-07-11] MEDS: cloNIDine 0.1 MG TAB PO SCH (13:24)
[2020-07-11] MEDS: Cholecalciferol 1,000 UNITS (25 MCG) TAB PO SCH (13:24)
[2020-07-11] MEDS: hydrALAZINE 25 MG TAB PO SCH (13:24)
[2020-07-11] MEDS: Famotidine 20 MG TAB PO SCH (13:24)
[2020-07-11] MEDS: Polyethylene Glycol 3350 17 GM Packet PO SCH (13:25)
[2020-07-11] MEDS: Senokot S 8.6-50 MG TAB PO SCH (13:25)
[2020-07-11] MEDS: TICAGRELOR 90 MG TABLET PO SCH (13:25)
[2020-07-11] MEDS: Metolazone 5 MG TAB PO SCH (13:25)
[2020-07-11 15:39] VITALS: BP 148/80; TEMP 98.6
[2020-07-11] MEDS: EPOETIN ALFA-EPBX (ESRD) 3,000 UNIT/ML VIAL SC SCH (15:47)
[2020-07-11] MEDS: EPOETIN ALFA-EPBX (ESRD) 4,000 UNIT/ML VIAL SC SCH (15:47)
== END 2020-07-11 19:05 | disposition swing bed (61) | DRG 291 ==
LOC: 2NO 15:40
PROVIDERS: ADMIT Student in an Organized Health Care Education/Training Program; ATTEND Student in an Organized Health Care Education/Training Program
PROC: 5A1D70Z Performance of Urinary Filtration, Intermittent, Less than 6 Hours Per Day (ICD-10-PCS; principal; 2020-07-01)
PROC: 0W993ZZ Drainage of Right Pleural Cavity, Percutaneous Approach (ICD-10-PCS; 2020-07-01)
PROC: 30233N1 Transfusion of Nonautologous Red Blood Cells into Peripheral Vein, Percutaneous Approach (ICD-10-PCS; 2020-07-02)
DX: I13.2 Hypertensive heart and chronic kidney disease with heart failure and with stage 5 chronic kidney disease, or end stage renal disease (principal); L89.153 Pressure ulcer of sacral region, stage 3; I50.23 Acute on chronic systolic (congestive) heart failure; N18.6 End stage renal disease; J90 Pleural effusion, not elsewhere classified; E11.22 Type 2 diabetes mellitus with diabetic chronic kidney disease; Z20.822 Contact with and (suspected) exposure to COVID-19; I25.10 Atherosclerotic heart disease of native coronary artery without angina pectoris; D63.1 Anemia in chronic kidney disease; E11.42 Type 2 diabetes mellitus with diabetic polyneuropathy; F32.9 Major depressive disorder, single episode, unspecified; I42.9 Cardiomyopathy, unspecified; D53.9 Nutritional anemia, unspecified; R09.02 Hypoxemia; Z99.2 Dependence on renal dialysis; Z79.899 Other long term (current) drug therapy; Z79.82 Long term (current) use of aspirin; Z79.4 Long term (current) use of insulin; Z90.49 Acquired absence of other specified parts of digestive tract; Z95.5 Presence of coronary angioplasty implant and graft; Z98.890 Other specified postprocedural states; Z87.891 Personal history of nicotine dependence
CPT/HCPCS: 36415; 36416; 36430; 71045; 80048; 82150; 82247; 82607; 82668; 82746; 82945; 83615; 83986; 84157; 84478; 85025; 85046; 85060; 86850; 86900; 86901; 87070; 87116; 87205; 87206; 88112; 88305; 89051; 90935; 93306; G0257; J0360; J1642; J1644; J1815; P9016; Q5105

== ENCOUNTER 2020-07-25 13:43 | Inpatient (IN) | payer OTHER ==
[2020-07-25] MEDS ORDERED: Calcium Carbonate 500 MG ChewTAB PO PRN (16:56)
[2020-07-25] MEDS ORDERED: Dextrose 5% in Water 1,000 ML IV PRN (16:56)
[2020-07-25] MEDS ORDERED: Ondansetron ODT 4 MG TAB PO PRN (16:56)
[2020-07-25] MEDS ORDERED: Vancomycin HCl 1.5 GM in Sodium Chloride 0.9% 250 ML 300 ML IVPB SCH ×2 (17:15→18:00)
[2020-07-25] MEDS ORDERED: Scopolamine 1.5 mg/72 hour Patch TD SCH (18:00)
[2020-07-25] MEDS: Acetaminophen 325 MG TAB PO PRN (18:17)
[2020-07-25] MEDS: Piperacillin/Tazobactam 2.25 GM in Sodium Chloride 0.9% 100 ML IVPB SCH (18:18)
[2020-07-25 19:00] LABS: ALT (SGPT) 12 U/L (8-55); AST (SGOT) 18 U/L (5-34); Albumin 2.3 g/dL (3.5-5.0); Alkaline Phosphatase 200 U/L (40-110); Anion Gap 18 mmol/L (10-20); BUN (Urea Nitrogen) 47 mg/dL (8.4-25.7); Bilirubin, Total 0.8 mg/dL (0.2-1.2); Calc. Creatinine Clearance 21 mL/min (70-130); Calcium 8.3 mg/dL (7.8-10.44); Carbon Dioxide 26 mmol/L (22-29); Chloride 98 mmol/L (98-107); Globulin 4.1 g/dL (2.4-3.5); Glucose 165 mg/dL (70-105); Protein, Total 6.4 g/dL (6.0-8.3); Sodium 138 mmol/L (136-145)
[2020-07-25 20:09] LABS: SARS-CoV-2 NAA Rapid Test Not Detected (NotDetected)
[2020-07-25] MEDS: Ascorbic Acid 500 mg Chewable Tablet PO SCH (20:56)
[2020-07-25] MEDS: Atorvastatin Calcium 40 MG TAB PO SCH (20:57)
[2020-07-25] MEDS: hydrALAZINE 25 MG TAB PO SCH (20:57)
[2020-07-25] MEDS: cloNIDine 0.1 MG TAB PO SCH (20:57)
[2020-07-25] MEDS: traMADol HCl 50 MG TAB PO SCH (20:58)
[2020-07-25] MEDS ORDERED: Aspirin 81 mg Enteric Coated Tablet PO SCH (21:00)
[2020-07-25] MEDS ORDERED: Heparin 5,000 UNITS/ML VIAL SC SCH (21:00)
[2020-07-25] MEDS: TICAGRELOR 90 MG TABLET PO SCH (21:25)
[2020-07-25] MEDS: Senokot S 8.6-50 MG TAB PO SCH (21:26)
[2020-07-25] MEDS: Pantoprazole 40 MG GRANULES PACKET PO SCH (21:26)
[2020-07-25] MEDS: Mirtazapine 15 MG Soltab PO SCH (21:26)
[2020-07-25 21:29] LABS: Hemoglobin 8.2 g/dL (14.0-18.0); Mean Corpuscular Hemoglobin 32.2 pg (27.0-31.0); Mean Platelet Volume 6.8 fL (7.4-10.4); Platelet Count 326 thou/uL (130-400); RBC Distribution Width 17.3 % (11.5-14.5); Red Blood Cell (RBC) Count 2.54 mill/uL (4.70-6.10)
[2020-07-25 21:40] LABS: Band 7 % (5-11); MDiff Complete? YES; Monocytes 3 % (0-10); Neutrophil 90 % (42-75); Platelet Morphology Comment Appears Adequate; White Blood Cell (WBC) Count 35.7 thou/uL (4.8-10.8)
[2020-07-26] MEDS: Piperacillin/Tazobactam 2.25 GM in Sodium Chloride 0.9% 100 ML IVPB SCH ×3 (02:55→21:15)
[2020-07-26 06:53] LABS: ALT (SGPT) 11 U/L (8-55); AST (SGOT) 16 U/L (5-34); Albumin 2.2 g/dL (3.5-5.0); Alkaline Phosphatase 197 U/L (40-110); Anion Gap 14 mmol/L (10-20); BUN (Urea Nitrogen) 54 mg/dL (8.4-25.7); Bilirubin, Total 0.8 mg/dL (0.2-1.2); Calc. Creatinine Clearance 19 mL/min (70-130); Calcium 8.1 mg/dL (7.8-10.44); Carbon Dioxide 29 mmol/L (22-29); Chloride 98 mmol/L (98-107); Globulin 3.9 g/dL (2.4-3.5); Glucose 136 mg/dL (70-105); Potassium 3.6 mmol/L (3.5-5.1); Protein, Total 6.1 g/dL (6.0-8.3); Sodium 137 mmol/L (136-145)
[2020-07-26 07:06] LABS: Mean Corpuscular HGB CONC 31.9 g/dL (32.0-36.0); Mean Corpuscular Hemoglobin 32.3 pg (27.0-31.0); Mean Platelet Volume 6.8 fL (7.4-10.4); Platelet Count 315 thou/uL (130-400); RBC Distribution Width 17.2 % (11.5-14.5); Red Blood Cell (RBC) Count 2.48 mill/uL (4.70-6.10); White Blood Cell (WBC) Count 34.4 thou/uL (4.8-10.8)
[2020-07-26 07:29] LABS: Band 8 % (5-11); Hypochromia SLIGHT = 6-15 cells (100X) (0-5/hpf); MDiff Complete? YES; Macrocytosis SLIGHT = 6-15 cells (100X) (0-5/hpf); Monocytes 7 % (0-10); Neutrophil 85 % (42-75); Platelet Morphology Comment Appears Adequate; Polychromasia SLIGHT = 2-3 cells (100X) (0-2/hpf)
[2020-07-26 08:17] LABS: Hep B Surf Ag Non-Reactive S/CO (NonReactive)
[2020-07-26] MEDS ORDERED: Heparin 10,000 UNITS/ 10 ML VIAL ONE (08:25)
[2020-07-26 10:44] LABS: Hemoglobin 8.3 g/dL (14.0-18.0); Mean Corpuscular HGB CONC 30.7 g/dL (32.0-36.0); Mean Corpuscular Hemoglobin 31.8 pg (27.0-31.0); Mean Platelet Volume 6.6 fL (7.4-10.4); Platelet Count 350 thou/uL (130-400); RBC Distribution Width 17.3 % (11.5-14.5); Red Blood Cell (RBC) Count 2.62 mill/uL (4.70-6.10)
[2020-07-26 11:12] LABS: Band 5 % (5-11); Bite Cells SLIGHT = 2-5 cells (100X) (0-1/hpf); Hypochromia SLIGHT = 6-15 cells (100X) (0-5/hpf); Lymphocytes 4 % (21-51); MDiff Complete? YES; Macrocytosis SLIGHT = 6-15 cells (100X) (0-5/hpf); Monocytes 8 % (0-10); Neutrophil 82 % (42-75); Platelet Morphology Comment Appears Adequate; Polychromasia SLIGHT = 2-3 cells (100X) (0-2/hpf)
[2020-07-26] MEDS: traMADol HCl 50 MG TAB PO SCH ×2 (12:45→21:00)
[2020-07-26] MEDS: cloNIDine 0.1 MG TAB PO SCH ×2 (12:58→21:16)
[2020-07-26] MEDS: Cholecalciferol 1,000 UNITS (25 MCG) TAB PO SCH (12:58)
[2020-07-26] MEDS: hydrALAZINE 25 MG TAB PO SCH ×2 (12:59→21:17)
[2020-07-26] MEDS: Aspirin 81 mg Enteric Coated Tablet PO SCH (12:59)
[2020-07-26] MEDS: Carvedilol 25 MG TAB PO SCH ×2 (13:00→17:27)
[2020-07-26] MEDS: Ferrous Sulfate 325 MG TAB PO SCH (13:01)
[2020-07-26] MEDS: Allopurinol 100 MG TAB PO SCH (13:01)
[2020-07-26] MEDS: Ascorbic Acid 500 mg Chewable Tablet PO SCH ×2 (13:01→21:16)
[2020-07-26] MEDS: Polyethylene Glycol 3350 17 GM Packet PO SCH (13:02)
[2020-07-26] MEDS: Senokot S 8.6-50 MG TAB PO SCH ×2 (13:14→21:20)
[2020-07-26] MEDS: TICAGRELOR 90 MG TABLET PO SCH ×2 (13:14→21:18)
[2020-07-26] MEDS: Pantoprazole 40 MG GRANULES PACKET PO SCH (13:39)
[2020-07-26] MEDS: Heparin 5,000 UNITS/ML VIAL SC SCH ×2 (14:42→21:19)
[2020-07-26] MEDS: Furosemide 80 MG TAB PO SCH (14:42)
[2020-07-26] MEDS ORDERED: Vancomycin HCl 750 MG in Sodium Chloride 0.9% 250 ML 250 ML IVPB SCH (18:00)
[2020-07-26] MEDS: Acetaminophen 325 MG TAB PO PRN (18:49)
[2020-07-26] MEDS: Atorvastatin Calcium 40 MG TAB PO SCH (21:18)
[2020-07-26] MEDS: Mirtazapine 15 MG Soltab PO SCH (21:20)
[2020-07-27] MEDS: Piperacillin/Tazobactam 2.25 GM in Sodium Chloride 0.9% 100 ML IVPB SCH ×3 (05:15→21:33)
[2020-07-27 06:13] LABS: #Basophils 0.1 thou/uL (0.0-0.2); #Eosinphils 0.2 thou/uL (0.0-0.7); #Monocytes 2.1 thou/uL (0.11-0.59); #Neutrophils 23.2 thou/uL (1.40-6.50); %Basophils 0.6 % (0.0-1.0); %Eosinophils 0.6 % (0.0-10.0); %Lymphocytes 3.8 % (21.0-51.0); %Monocytes 7.8 % (0.0-10.0); %Neutrophils 87.3 % (42.0-75.0); Hemoglobin 7.8 g/dL (14.0-18.0); Mean Corpuscular Hemoglobin 32.6 pg (27.0-31.0); Mean Platelet Volume 6.8 fL (7.4-10.4); Platelet Count 288 thou/uL (130-400); RBC Distribution Width 17.2 % (11.5-14.5); Red Blood Cell (RBC) Count 2.38 mill/uL (4.70-6.10); White Blood Cell (WBC) Count 26.6 thou/uL (4.8-10.8)
[2020-07-27 06:38] LABS: ALT (SGPT) 9 U/L (8-55); AST (SGOT) 14 U/L (5-34); Albumin 2.2 g/dL (3.5-5.0); Alkaline Phosphatase 198 U/L (40-110); Anion Gap 13 mmol/L (10-20); BUN (Urea Nitrogen) 33 mg/dL (8.4-25.7); Bilirubin, Total 0.8 mg/dL (0.2-1.2); Calc. Creatinine Clearance 27 mL/min (70-130); Calcium 7.6 mg/dL (7.8-10.44); Carbon Dioxide 29 mmol/L (22-29); Chloride 100 mmol/L (98-107); Globulin 3.7 g/dL (2.4-3.5); Glucose 114 mg/dL (70-105); Potassium 3.6 mmol/L (3.5-5.1); Protein, Total 5.9 g/dL (6.0-8.3); Sodium 138 mmol/L (136-145)
[2020-07-27] MEDS ORDERED: Famotidine 20 MG TAB PO SCH (09:00)
[2020-07-27] MEDS: Polyethylene Glycol 3350 17 GM Packet PO SCH (09:36)
[2020-07-27] MEDS: Furosemide 80 MG TAB PO SCH ×2 (09:37→15:44)
[2020-07-27] MEDS: Carvedilol 25 MG TAB PO SCH ×2 (09:38→18:12)
[2020-07-27] MEDS: cloNIDine 0.1 MG TAB PO SCH ×2 (09:41→21:35)
[2020-07-27] MEDS: hydrALAZINE 25 MG TAB PO SCH ×2 (09:42→21:35)
[2020-07-27] MEDS: traMADol HCl 50 MG TAB PO SCH ×2 (09:43→20:55)
[2020-07-27] MEDS: Senokot S 8.6-50 MG TAB PO SCH ×2 (09:54→13:02)
[2020-07-27] MEDS: Ascorbic Acid 500 mg Chewable Tablet PO SCH ×2 (11:33→21:34)
[2020-07-27] MEDS: Cholecalciferol 1,000 UNITS (25 MCG) TAB PO SCH (11:33)
[2020-07-27] MEDS: Ferrous Sulfate 325 MG TAB PO SCH (11:33)
[2020-07-27] MEDS: Aspirin 81 mg Enteric Coated Tablet PO SCH (11:33)
[2020-07-27] MEDS: TICAGRELOR 90 MG TABLET PO SCH ×2 (11:34→21:34)
[2020-07-27] MEDS: Metolazone 5 MG TAB PO SCH (11:34)
[2020-07-27] MEDS: Heparin 5,000 UNITS/ML VIAL SC SCH (11:34)
[2020-07-27] MEDS: Acetaminophen 325 MG TAB PO PRN (14:35)
[2020-07-27] MEDS ORDERED: Bisacodyl 5 MG TAB PO PRN (18:30)
[2020-07-27] MEDS ORDERED: Polyethylene Glycol 3350 17 GM Packet PO SCH (21:00)
[2020-07-27] MEDS: Mirtazapine 15 MG Soltab PO SCH (21:32)
[2020-07-27] MEDS: Mupirocin 2% Ointment 22 GM Tube TOP SCH (21:36)
[2020-07-27] MEDS: Atorvastatin Calcium 40 MG TAB PO SCH (21:36)
[2020-07-28] MEDS: Piperacillin/Tazobactam 2.25 GM in Sodium Chloride 0.9% 100 ML IVPB SCH ×4 (05:08→22:18)
[2020-07-28 05:45] LABS: #Basophils 0.1 thou/uL (0.0-0.2); #Eosinphils 0.2 thou/uL (0.0-0.7); #Lymphocytes 1.2 thou/uL (1.20-3.40); #Monocytes 1.9 thou/uL (0.11-0.59); #Neutrophils 19.5 thou/uL (1.40-6.50); %Basophils 0.6 % (0.0-1.0); %Monocytes 8.1 % (0.0-10.0); %Neutrophils 85.3 % (42.0-75.0); Hemoglobin 7.6 g/dL (14.0-18.0); Mean Corpuscular Hemoglobin 32.6 pg (27.0-31.0); Mean Platelet Volume 6.9 fL (7.4-10.4); Platelet Count 280 thou/uL (130-400); Red Blood Cell (RBC) Count 2.32 mill/uL (4.70-6.10); White Blood Cell (WBC) Count 22.9 thou/uL (4.8-10.8)
[2020-07-28 06:11] LABS: ALT (SGPT) 9 U/L (8-55); AST (SGOT) 15 U/L (5-34); Albumin 2.2 g/dL (3.5-5.0); Alkaline Phosphatase 181 U/L (40-110); Anion Gap 16 mmol/L (10-20); BUN (Urea Nitrogen) 45 mg/dL (8.4-25.7); Bilirubin, Total 0.8 mg/dL (0.2-1.2); Calc. Creatinine Clearance 22 mL/min (70-130); Calcium 7.7 mg/dL (7.8-10.44); Carbon Dioxide 26 mmol/L (22-29); Chloride 100 mmol/L (98-107); Globulin 3.8 g/dL (2.4-3.5); Glucose 121 mg/dL (70-105); Potassium 3.8 mmol/L (3.5-5.1); Sodium 138 mmol/L (136-145)
[2020-07-28] MEDS ORDERED: Heparin 10,000 UNITS/ 10 ML VIAL ONE (08:43)
[2020-07-28] MEDS: traMADol HCl 50 MG TAB PO SCH (09:03)
[2020-07-28] MEDS: Allopurinol 100 MG TAB PO SCH (09:08)
[2020-07-28] MEDS: Metolazone 5 MG TAB PO SCH (09:08)
[2020-07-28] MEDS: Ferrous Sulfate 325 MG TAB PO SCH (09:08)
[2020-07-28] MEDS: Carvedilol 25 MG TAB PO SCH ×2 (09:12→18:07)
[2020-07-28] MEDS: Aspirin 81 mg Enteric Coated Tablet PO SCH (09:12)
[2020-07-28] MEDS: Mupirocin 2% Ointment 22 GM Tube TOP SCH ×2 (09:19→22:18)
[2020-07-28] MEDS: Cholecalciferol 1,000 UNITS (25 MCG) TAB PO SCH (09:48)
[2020-07-28] MEDS: Ascorbic Acid 500 mg Chewable Tablet PO SCH ×2 (09:48→20:54)
[2020-07-28] MEDS: hydrALAZINE 25 MG TAB PO SCH ×2 (09:48→20:53)
[2020-07-28] MEDS: cloNIDine 0.1 MG TAB PO SCH ×2 (09:48→20:53)
[2020-07-28] MEDS: TICAGRELOR 90 MG TABLET PO SCH ×2 (09:49→20:54)
[2020-07-28] MEDS: Furosemide 80 MG TAB PO SCH ×2 (09:50→17:12)
[2020-07-28] MEDS ORDERED: Sodium Chloride 0.65% Nasal 44 ML BOT EA NARE PRN (10:32)
[2020-07-28] MEDS ORDERED: Bupropion 150 MG XL TAB PO SCH (13:15)
[2020-07-28] MEDS: Acetaminophen 325 MG TAB PO PRN (13:18)
[2020-07-28 15:15] LABS: A/G Ratio 0.6 (0.7-1.7); Albumin 2.3 g/dL (2.9-4.4); Alpha 1 0.4 g/dL (0.0-0.4); Alpha 2 0.7 g/dL (0.4-1.0); Beta 1.3 g/dL (0.7-1.3); Gamma 1.5 g/dL (0.4-1.8); Globulin, Total 3.9 g/dL (2.2-3.9); M-Spike Not Observed g/dL (Not Observed); Protein Electrophoresis Intrp Note: (.)
[2020-07-28] MEDS: Atorvastatin Calcium 40 MG TAB PO SCH (20:53)
[2020-07-28] MEDS: Senokot S 8.6-50 MG TAB PO SCH (20:55)
[2020-07-29 05:55] LABS: #Basophils 0.1 thou/uL (0.0-0.2); #Eosinphils 0.1 thou/uL (0.0-0.7); #Monocytes 1.7 thou/uL (0.11-0.59); #Neutrophils 13.3 thou/uL (1.40-6.50); %Basophils 0.7 % (0.0-1.0); %Eosinophils 0.7 % (0.0-10.0); %Lymphocytes 6.3 % (21.0-51.0); %Monocytes 10.5 % (0.0-10.0); %Neutrophils 81.9 % (42.0-75.0); Hemoglobin 7.9 g/dL (14.0-18.0); Mean Corpuscular HGB CONC 31.4 g/dL (32.0-36.0); Mean Corpuscular Hemoglobin 32.4 pg (27.0-31.0); Mean Platelet Volume 7.2 fL (7.4-10.4); Platelet Count 302 thou/uL (130-400); RBC Distribution Width 16.6 % (11.5-14.5); Red Blood Cell (RBC) Count 2.43 mill/uL (4.70-6.10); White Blood Cell (WBC) Count 16.3 thou/uL (4.8-10.8)
[2020-07-29] MEDS: Piperacillin/Tazobactam 2.25 GM in Sodium Chloride 0.9% 100 ML IVPB SCH ×3 (06:09→22:15)
[2020-07-29 06:10] LABS: ALT (SGPT) 13 U/L (8-55); AST (SGOT) 19 U/L (5-34); Albumin 2.2 g/dL (3.5-5.0); Alkaline Phosphatase 189 U/L (40-110); Anion Gap 11 mmol/L (10-20); BUN (Urea Nitrogen) 25 mg/dL (8.4-25.7); Bilirubin, Total 0.9 mg/dL (0.2-1.2); Calc. Creatinine Clearance 32 mL/min (70-130); Calcium 7.6 mg/dL (7.8-10.44); Carbon Dioxide 30 mmol/L (22-29); Chloride 100 mmol/L (98-107); Globulin 3.9 g/dL (2.4-3.5); Glucose 119 mg/dL (70-105); Potassium 3.7 mmol/L (3.5-5.1); Protein, Total 6.1 g/dL (6.0-8.3); Sodium 137 mmol/L (136-145)
[2020-07-29] MEDS: Ferrous Sulfate 325 MG TAB PO SCH (08:13)
[2020-07-29] MEDS: Furosemide 80 MG TAB PO SCH ×2 (08:13→14:53)
[2020-07-29] MEDS: Carvedilol 25 MG TAB PO SCH ×2 (08:13→18:11)
[2020-07-29] MEDS: cloNIDine 0.1 MG TAB PO SCH ×2 (08:14→21:42)
[2020-07-29] MEDS: hydrALAZINE 25 MG TAB PO SCH ×2 (08:14→21:42)
[2020-07-29] MEDS: Metolazone 5 MG TAB PO SCH (08:14)
[2020-07-29] MEDS: Senokot S 8.6-50 MG TAB PO SCH ×2 (08:14→21:43)
[2020-07-29] MEDS: Aspirin 81 mg Enteric Coated Tablet PO SCH (08:15)
[2020-07-29] MEDS: Cholecalciferol 1,000 UNITS (25 MCG) TAB PO SCH (08:17)
[2020-07-29] MEDS: Ascorbic Acid 500 mg Chewable Tablet PO SCH ×2 (08:18→21:43)
[2020-07-29] MEDS: Polyethylene Glycol 3350 17 GM Packet PO SCH (08:23)
[2020-07-29] MEDS: TICAGRELOR 90 MG TABLET PO SCH ×2 (08:50→23:20)
[2020-07-29] MEDS ORDERED: Bupropion 150 MG XL TAB PO SCH ×2 (09:00)
[2020-07-29 19:37] LABS: Albumin-Ur 61.2 % (.); Alpha 1 - Ur 2.6 % (.); Alpha 2 - Ur 6.8 % (.); Gamma-Ur 18.4 % (.); M-Spike,% Not Observed % (Not Observed); Protein, Urine 197.4 mg/dL (Not Estab.)
[2020-07-29] MEDS: Atorvastatin Calcium 40 MG TAB PO SCH (21:43)
[2020-07-30] MEDS: Piperacillin/Tazobactam 2.25 GM in Sodium Chloride 0.9% 100 ML IVPB SCH ×3 (05:30→21:37)
[2020-07-30 06:19] LABS: #Basophils 0.1 thou/uL (0.0-0.2); #Eosinphils 0.3 thou/uL (0.0-0.7); #Lymphocytes 1.1 thou/uL (1.20-3.40); #Monocytes 1.7 thou/uL (0.11-0.59); #Neutrophils 11.5 thou/uL (1.40-6.50); %Basophils 0.8 % (0.0-1.0); %Eosinophils 2.2 % (0.0-10.0); %Lymphocytes 7.6 % (21.0-51.0); %Monocytes 11.7 % (0.0-10.0); %Neutrophils 77.6 % (42.0-75.0); Hemoglobin 7.5 g/dL (14.0-18.0); Mean Corpuscular HGB CONC 32.3 g/dL (32.0-36.0); Mean Corpuscular Hemoglobin 32.6 pg (27.0-31.0); Mean Platelet Volume 6.7 fL (7.4-10.4); Platelet Count 249 thou/uL (130-400); RBC Distribution Width 16.5 % (11.5-14.5); Red Blood Cell (RBC) Count 2.29 mill/uL (4.70-6.10); White Blood Cell (WBC) Count 14.8 thou/uL (4.8-10.8)
[2020-07-30 06:41] LABS: ALT (SGPT) 10 U/L (8-55); AST (SGOT) 16 U/L (5-34); Albumin 2.1 g/dL (3.5-5.0); Alkaline Phosphatase 168 U/L (40-110); Anion Gap 13 mmol/L (10-20); BUN (Urea Nitrogen) 33 mg/dL (8.4-25.7); Bilirubin, Total 0.7 mg/dL (0.2-1.2); Calc. Creatinine Clearance 23 mL/min (70-130); Calcium 7.6 mg/dL (7.8-10.44); Carbon Dioxide 28 mmol/L (22-29); Chloride 98 mmol/L (98-107); Globulin 3.8 g/dL (2.4-3.5); Glucose 171 mg/dL (70-105); Potassium 3.6 mmol/L (3.5-5.1); Protein, Total 5.9 g/dL (6.0-8.3); Sodium 135 mmol/L (136-145)
[2020-07-30] MEDS: Aspirin 81 mg Enteric Coated Tablet PO SCH (08:45)
[2020-07-30] MEDS ORDERED: Heparin 10,000 UNITS/ 10 ML VIAL ONE (08:45)
[2020-07-30] MEDS: Carvedilol 25 MG TAB PO SCH ×2 (08:47→16:55)
[2020-07-30] MEDS: Ascorbic Acid 500 mg Chewable Tablet PO SCH ×2 (08:47→21:34)
[2020-07-30] MEDS: Ferrous Sulfate 325 MG TAB PO SCH (08:49)
[2020-07-30] MEDS: Cholecalciferol 1,000 UNITS (25 MCG) TAB PO SCH (08:49)
[2020-07-30] MEDS: Bupropion 150 MG XL TAB PO SCH (08:51)
[2020-07-30] MEDS: Allopurinol 100 MG TAB PO SCH (08:52)
[2020-07-30] MEDS: Furosemide 80 MG TAB PO SCH ×2 (13:23→16:58)
[2020-07-30] MEDS: hydrALAZINE 25 MG TAB PO SCH ×2 (13:23→21:34)
[2020-07-30] MEDS: Metolazone 5 MG TAB PO SCH (13:24)
[2020-07-30] MEDS: cloNIDine 0.1 MG TAB PO SCH ×2 (13:24→21:35)
[2020-07-30] MEDS: Senokot S 8.6-50 MG TAB PO SCH ×2 (13:24→21:39)
[2020-07-30] MEDS: TICAGRELOR 90 MG TABLET PO SCH ×2 (13:25→21:37)
[2020-07-30] MEDS: Polyethylene Glycol 3350 17 GM Packet PO SCH (13:25)
[2020-07-30] MEDS ORDERED: Metoprolol Tartrate 25 MG TAB PO SCH (21:15)
[2020-07-30] MEDS: Atorvastatin Calcium 40 MG TAB PO SCH (21:35)
[2020-07-31] MEDS ORDERED: Metoprolol Tartrate 25 MG TAB PO SCH (00:15)
[2020-07-31] MEDS: Piperacillin/Tazobactam 2.25 GM in Sodium Chloride 0.9% 100 ML IVPB SCH ×3 (05:06→21:33)
[2020-07-31 05:07] LABS: #Basophils 0.1 thou/uL (0.0-0.2); #Eosinphils 0.3 thou/uL (0.0-0.7); #Monocytes 1.5 thou/uL (0.11-0.59); #Neutrophils 9.6 thou/uL (1.40-6.50); %Basophils 0.9 % (0.0-1.0); %Eosinophils 2.1 % (0.0-10.0); %Monocytes 12.3 % (0.0-10.0); %Neutrophils 76.8 % (42.0-75.0); Hemoglobin 7.1 g/dL (14.0-18.0); Mean Corpuscular Hemoglobin 32.6 pg (27.0-31.0); Mean Platelet Volume 7.3 fL (7.4-10.4); Platelet Count 230 thou/uL (130-400); RBC Distribution Width 16.3 % (11.5-14.5); Red Blood Cell (RBC) Count 2.16 mill/uL (4.70-6.10); White Blood Cell (WBC) Count 12.5 thou/uL (4.8-10.8)
[2020-07-31 05:42] LABS: ALT (SGPT) 13 U/L (8-55); AST (SGOT) 18 U/L (5-34); Alkaline Phosphatase 153 U/L (40-110); Anion Gap 12 mmol/L (10-20); BUN (Urea Nitrogen) 22 mg/dL (8.4-25.7); Bilirubin, Total 0.6 mg/dL (0.2-1.2); Calc. Creatinine Clearance 34 mL/min (70-130); Calcium 7.2 mg/dL (7.8-10.44); Carbon Dioxide 28 mmol/L (22-29); Chloride 99 mmol/L (98-107); Globulin 3.7 g/dL (2.4-3.5); Glucose 203 mg/dL (70-105); Potassium 3.8 mmol/L (3.5-5.1); Protein, Total 5.7 g/dL (6.0-8.3); Sodium 135 mmol/L (136-145)
[2020-07-31] MEDS: HumaLOG 300 UNITS/3 ML VIAL SC PRN ×2 (06:05→18:36)
[2020-07-31 07:44] LABS: Magnesium 1.8 mg/dL (1.6-2.6); Phosphorus 2.2 mg/dL (2.3-4.7)
[2020-07-31] MEDS: Carvedilol 25 MG TAB PO SCH ×2 (10:13→17:49)
[2020-07-31] MEDS: Aspirin 81 mg Enteric Coated Tablet PO SCH (10:15)
[2020-07-31] MEDS: Furosemide 80 MG TAB PO SCH ×2 (10:15→15:40)
[2020-07-31] MEDS: Ascorbic Acid 500 mg Chewable Tablet PO SCH ×2 (10:15→21:33)
[2020-07-31] MEDS: Bupropion 150 MG XL TAB PO SCH (10:15)
[2020-07-31] MEDS: Cholecalciferol 1,000 UNITS (25 MCG) TAB PO SCH (10:15)
[2020-07-31] MEDS: Ferrous Sulfate 325 MG TAB PO SCH (10:15)
[2020-07-31] MEDS: cloNIDine 0.1 MG TAB PO SCH ×2 (10:15→21:33)
[2020-07-31] MEDS: Polyethylene Glycol 3350 17 GM Packet PO SCH (10:16)
[2020-07-31] MEDS: TICAGRELOR 90 MG TABLET PO SCH ×2 (10:16→21:33)
[2020-07-31] MEDS: Metolazone 5 MG TAB PO SCH (10:16)
[2020-07-31 18:41] LABS: Hemoglobin 8.5 g/dL (14.0-18.0); Platelet Count 219 thou/uL (130-400)
[2020-07-31] MEDS: Atorvastatin Calcium 40 MG TAB PO SCH (21:33)
[2020-08-01] MEDS: Piperacillin/Tazobactam 2.25 GM in Sodium Chloride 0.9% 100 ML IVPB SCH ×3 (05:27→21:13)
[2020-08-01] MEDS: HumaLOG 300 UNITS/3 ML VIAL SC PRN ×2 (06:05→17:47)
[2020-08-01] MEDS ORDERED: Senokot S 8.6-50 MG TAB PO PRN (06:46)
[2020-08-01 07:25] LABS: #Basophils 0.1 thou/uL (0.0-0.2); #Eosinphils 0.4 thou/uL (0.0-0.7); #Lymphocytes 1.1 thou/uL (1.20-3.40); #Monocytes 1.2 thou/uL (0.11-0.59); #Neutrophils 11.7 thou/uL (1.40-6.50); %Basophils 0.6 % (0.0-1.0); %Eosinophils 2.5 % (0.0-10.0); %Lymphocytes 7.8 % (21.0-51.0); %Monocytes 8.5 % (0.0-10.0); %Neutrophils 80.5 % (42.0-75.0); Hemoglobin 8.1 g/dL (14.0-18.0); Mean Corpuscular Hemoglobin 31.8 pg (27.0-31.0); Mean Corpuscular Volume 99.3 fL (78.0-98.0); Mean Platelet Volume 7.4 fL (7.4-10.4); Platelet Count 229 thou/uL (130-400); RBC Distribution Width 16.3 % (11.5-14.5); Red Blood Cell (RBC) Count 2.56 mill/uL (4.70-6.10); White Blood Cell (WBC) Count 14.5 thou/uL (4.8-10.8)
[2020-08-01 07:45] LABS: ALT (SGPT) 18 U/L (8-55); AST (SGOT) 22 U/L (5-34); Albumin 2.3 g/dL (3.5-5.0); Alkaline Phosphatase 152 U/L (40-110); Anion Gap 14 mmol/L (10-20); BUN (Urea Nitrogen) 41 mg/dL (8.4-25.7); Bilirubin, Total 0.7 mg/dL (0.2-1.2); Calc. Creatinine Clearance 22 mL/min (70-130); Calcium 7.4 mg/dL (7.8-10.44); Carbon Dioxide 29 mmol/L (22-29); Chloride 95 mmol/L (98-107); Globulin 3.8 g/dL (2.4-3.5); Glucose 187 mg/dL (70-105); Potassium 4.1 mmol/L (3.5-5.1); Protein, Total 6.1 g/dL (6.0-8.3); Sodium 134 mmol/L (136-145)
[2020-08-01] MEDS: Carvedilol 25 MG TAB PO SCH ×2 (08:10→17:39)
[2020-08-01] MEDS: Ferrous Sulfate 325 MG TAB PO SCH (08:11)
[2020-08-01] MEDS: Allopurinol 100 MG TAB PO SCH (08:11)
[2020-08-01] MEDS: Bupropion 150 MG XL TAB PO SCH (08:12)
[2020-08-01] MEDS: Cholecalciferol 1,000 UNITS (25 MCG) TAB PO SCH (08:12)
[2020-08-01] MEDS: Aspirin 81 mg Enteric Coated Tablet PO SCH (08:12)
[2020-08-01] MEDS: cloNIDine 0.1 MG TAB PO SCH ×2 (08:12→21:11)
[2020-08-01] MEDS: Ascorbic Acid 500 mg Chewable Tablet PO SCH ×2 (08:12→21:12)
[2020-08-01] MEDS: Furosemide 80 MG TAB PO SCH ×2 (08:13→14:31)
[2020-08-01] MEDS: Metolazone 5 MG TAB PO SCH (08:13)
[2020-08-01] MEDS: Polyethylene Glycol 3350 17 GM Packet PO SCH (08:14)
[2020-08-01] MEDS: TICAGRELOR 90 MG TABLET PO SCH ×2 (08:14→21:12)
[2020-08-01] MEDS: Atorvastatin Calcium 40 MG TAB PO SCH (21:11)
[2020-08-01] MEDS: hydrALAZINE 25 MG TAB PO SCH (21:11)
[2020-08-01] MEDS: Sodium Chloride 0.9% 1,000 ML IV SCH (23:13)
[2020-08-02 04:29] LABS: #Basophils 0.1 thou/uL (0.0-0.2); #Eosinphils 0.4 thou/uL (0.0-0.7); #Lymphocytes 1.1 thou/uL (1.20-3.40); #Neutrophils 11.7 thou/uL (1.40-6.50); %Lymphocytes 7.9 % (21.0-51.0); %Monocytes 6.8 % (0.0-10.0); %Neutrophils 81.3 % (42.0-75.0); Hemoglobin 7.3 g/dL (14.0-18.0); Mean Corpuscular HGB CONC 32.7 g/dL (32.0-36.0); Mean Corpuscular Hemoglobin 32.8 pg (27.0-31.0); Platelet Count 194 thou/uL (130-400); RBC Distribution Width 16.4 % (11.5-14.5); Red Blood Cell (RBC) Count 2.21 mill/uL (4.70-6.10); White Blood Cell (WBC) Count 14.4 thou/uL (4.8-10.8)
[2020-08-02 04:52] LABS: ALT (SGPT) 15 U/L (8-55); AST (SGOT) 17 U/L (5-34); Alkaline Phosphatase 132 U/L (40-110); Anion Gap 11 mmol/L (10-20); BUN (Urea Nitrogen) 62 mg/dL (8.4-25.7); Bilirubin, Total 0.6 mg/dL (0.2-1.2); Calc. Creatinine Clearance 20 mL/min (70-130); Calcium 7.2 mg/dL (7.8-10.44); Carbon Dioxide 29 mmol/L (22-29); Chloride 97 mmol/L (98-107); Globulin 3.5 g/dL (2.4-3.5); Glucose 249 mg/dL (70-105); Potassium 4.3 mmol/L (3.5-5.1); Protein, Total 5.5 g/dL (6.0-8.3); Sodium 133 mmol/L (136-145)
[2020-08-02] MEDS: Piperacillin/Tazobactam 2.25 GM in Sodium Chloride 0.9% 100 ML IVPB SCH ×3 (05:35→21:34)
[2020-08-02 08:10] LABS: Reticulocyte Count 1.1 % (0.5-1.5)
[2020-08-02] MEDS: Carvedilol 25 MG TAB PO SCH ×2 (08:15→16:52)
[2020-08-02] MEDS ORDERED: Heparin 10,000 UNITS/ 10 ML VIAL ONE (08:44)
[2020-08-02] MEDS ORDERED: Fentanyl 100 MCG/2 ML VIAL ONE ×2 (09:50→11:16)
[2020-08-02] MEDS ORDERED: Ondansetron PF 4 MG/2 ML Vial ONE (10:17)
[2020-08-02] MEDS ORDERED: Rocuronium Bromide 10 MG/ML (10ML VIAL) ONE (10:17)
[2020-08-02] MEDS ORDERED: SUGAMMADEX SODIUM 200 MG/2 ML VIAL ONE (10:50)
[2020-08-02] MEDS: Acetaminophen 325 MG TAB PO PRN (13:36)
[2020-08-02] MEDS: Ascorbic Acid 500 mg Chewable Tablet PO SCH ×2 (14:06→21:35)
[2020-08-02] MEDS: cloNIDine 0.1 MG TAB PO SCH ×2 (14:06→21:35)
[2020-08-02] MEDS: TICAGRELOR 90 MG TABLET PO SCH ×2 (14:07→21:35)
[2020-08-02] MEDS: Ferrous Sulfate 325 MG TAB PO SCH (14:20)
[2020-08-02] MEDS: Aspirin 81 mg Enteric Coated Tablet PO SCH (16:31)
[2020-08-02] MEDS: Bupropion 150 MG XL TAB PO SCH (16:31)
[2020-08-02] MEDS: Polyethylene Glycol 3350 17 GM Packet PO SCH (16:32)
[2020-08-02] MEDS: hydrALAZINE 25 MG TAB PO SCH ×2 (16:32→21:34)
[2020-08-02] MEDS: Cholecalciferol 1,000 UNITS (25 MCG) TAB PO SCH (16:32)
[2020-08-02] MEDS: Furosemide 80 MG TAB PO SCH (16:38)
[2020-08-02] MEDS: Metolazone 5 MG TAB PO SCH (16:38)
[2020-08-02] MEDS: Sodium Chloride 0.9% 1,000 ML IV SCH (16:51)
[2020-08-02] MEDS: HumaLOG 300 UNITS/3 ML VIAL SC PRN (18:14)
[2020-08-02] MEDS: Atorvastatin Calcium 40 MG TAB PO SCH (21:35)
[2020-08-03 04:51] LABS: #Basophils 0.2 thou/uL (0.0-0.2); #Eosinphils 0.5 thou/uL (0.0-0.7); #Lymphocytes 1.1 thou/uL (1.20-3.40); #Monocytes 1.2 thou/uL (0.11-0.59); #Neutrophils 10.3 thou/uL (1.40-6.50); %Basophils 1.2 % (0.0-1.0); %Eosinophils 3.9 % (0.0-10.0); %Lymphocytes 8.3 % (21.0-51.0); %Monocytes 9.1 % (0.0-10.0); %Neutrophils 77.6 % (42.0-75.0); Hemoglobin 7.8 g/dL (14.0-18.0); Mean Corpuscular HGB CONC 32.8 g/dL (32.0-36.0); Mean Platelet Volume 7.1 fL (7.4-10.4); Platelet Count 218 thou/uL (130-400); RBC Distribution Width 16.3 % (11.5-14.5); Red Blood Cell (RBC) Count 2.35 mill/uL (4.70-6.10); White Blood Cell (WBC) Count 13.2 thou/uL (4.8-10.8)
[2020-08-03 05:15] LABS: ALT (SGPT) 19 U/L (8-55); AST (SGOT) 23 U/L (5-34); Albumin 2.1 g/dL (3.5-5.0); Alkaline Phosphatase 135 U/L (40-110); Anion Gap 12 mmol/L (10-20); BUN (Urea Nitrogen) 36 mg/dL (8.4-25.7); Bilirubin, Total 0.6 mg/dL (0.2-1.2); Calc. Creatinine Clearance 30 mL/min (70-130); Calcium 7.3 mg/dL (7.8-10.44); Carbon Dioxide 29 mmol/L (22-29); Chloride 100 mmol/L (98-107); Globulin 3.7 g/dL (2.4-3.5); Glucose 267 mg/dL (70-105); Protein, Total 5.8 g/dL (6.0-8.3); Sodium 137 mmol/L (136-145)
[2020-08-03] MEDS: Sodium Chloride 0.9% 1,000 ML IV SCH (05:59)
[2020-08-03] MEDS: Piperacillin/Tazobactam 2.25 GM in Sodium Chloride 0.9% 100 ML IVPB SCH (05:59)
[2020-08-03] MEDS: HumaLOG 300 UNITS/3 ML VIAL SC PRN ×2 (06:00→18:10)
[2020-08-03] MEDS: Aspirin 81 mg Enteric Coated Tablet PO SCH (09:35)
[2020-08-03] MEDS: TICAGRELOR 90 MG TABLET PO SCH ×2 (09:35→20:45)
[2020-08-03] MEDS: Polyethylene Glycol 3350 17 GM Packet PO SCH (09:35)
[2020-08-03] MEDS: Cholecalciferol 1,000 UNITS (25 MCG) TAB PO SCH (09:41)
[2020-08-03] MEDS: Ascorbic Acid 500 mg Chewable Tablet PO SCH ×2 (09:42→20:43)
[2020-08-03] MEDS: hydrALAZINE 25 MG TAB PO SCH ×3 (09:43→20:44)
[2020-08-03] MEDS: Bupropion 150 MG XL TAB PO SCH (09:43)
[2020-08-03] MEDS: Allopurinol 100 MG TAB PO SCH (09:43)
[2020-08-03] MEDS: Ferrous Sulfate 325 MG TAB PO SCH (09:43)
[2020-08-03] MEDS: cloNIDine 0.1 MG TAB PO SCH ×2 (09:43→20:44)
[2020-08-03] MEDS: Carvedilol 25 MG TAB PO SCH ×2 (09:46→16:01)
[2020-08-03] MEDS: Atorvastatin Calcium 40 MG TAB PO SCH (20:44)
[2020-08-04 05:08] LABS: #Basophils 0.1 thou/uL (0.0-0.2); #Eosinphils 0.5 thou/uL (0.0-0.7); #Lymphocytes 1.2 thou/uL (1.20-3.40); #Monocytes 1.4 thou/uL (0.11-0.59); #Neutrophils 10.3 thou/uL (1.40-6.50); %Eosinophils 3.8 % (0.0-10.0); %Lymphocytes 8.6 % (21.0-51.0); %Monocytes 10.5 % (0.0-10.0); %Neutrophils 76.1 % (42.0-75.0); Hemoglobin 7.3 g/dL (14.0-18.0); Mean Corpuscular Hemoglobin 33.4 pg (27.0-31.0); Mean Platelet Volume 7.5 fL (7.4-10.4); Platelet Count 243 thou/uL (130-400); RBC Distribution Width 16.5 % (11.5-14.5); Red Blood Cell (RBC) Count 2.18 mill/uL (4.70-6.10); White Blood Cell (WBC) Count 13.6 thou/uL (4.8-10.8)
[2020-08-04 05:29] LABS: Anion Gap 15 mmol/L (10-20); BUN (Urea Nitrogen) 47 mg/dL (8.4-25.7); Calc. Creatinine Clearance 24 mL/min (70-130); Calcium 7.3 mg/dL (7.8-10.44); Carbon Dioxide 25 mmol/L (22-29); Chloride 99 mmol/L (98-107); Glucose 332 mg/dL (70-105); Potassium 4.6 mmol/L (3.5-5.1); Sodium 134 mmol/L (136-145)
[2020-08-04] MEDS: HumaLOG 300 UNITS/3 ML VIAL SC PRN ×3 (05:56→21:29)
[2020-08-04] MEDS ORDERED: Lantus 1000 UNITS/10 ML VIAL SC SCH (09:00)
[2020-08-04] MEDS ORDERED: Heparin 10,000 UNITS/ 10 ML VIAL ONE (10:02)
[2020-08-04] MEDS ORDERED: Tamsulosin HCl 0.4 MG CAP PO SCH (11:15)
[2020-08-04] MEDS: Carvedilol 25 MG TAB PO SCH ×2 (11:38→16:09)
[2020-08-04] MEDS: Ascorbic Acid 500 mg Chewable Tablet PO SCH ×2 (11:39→21:51)
[2020-08-04] MEDS: cloNIDine 0.1 MG TAB PO SCH ×2 (11:40→21:51)
[2020-08-04] MEDS: TICAGRELOR 90 MG TABLET PO SCH ×2 (11:40→21:53)
[2020-08-04] MEDS: hydrALAZINE 25 MG TAB PO SCH ×3 (11:40→21:52)
[2020-08-04] MEDS: Ferrous Sulfate 325 MG TAB PO SCH (11:57)
[2020-08-04] MEDS: Aspirin 81 mg Enteric Coated Tablet PO SCH (11:57)
[2020-08-04] MEDS: Bupropion 150 MG XL TAB PO SCH (11:57)
[2020-08-04] MEDS: Polyethylene Glycol 3350 17 GM Packet PO SCH (11:58)
[2020-08-04] MEDS: Cholecalciferol 1,000 UNITS (25 MCG) TAB PO SCH (11:58)
[2020-08-04] MEDS: Acetaminophen 325 MG TAB PO PRN ×2 (13:01→20:05)
[2020-08-04] MEDS ORDERED: Polyethylene Glycol 3350 17 GM Packet PO PRN (17:00)
[2020-08-04] MEDS: Atorvastatin Calcium 40 MG TAB PO SCH (21:51)
[2020-08-05 05:11] LABS: #Basophils 0.1 thou/uL (0.0-0.2); #Eosinphils 0.4 thou/uL (0.0-0.7); #Lymphocytes 1.3 thou/uL (1.20-3.40); #Monocytes 1.4 thou/uL (0.11-0.59); %Basophils 1.1 % (0.0-1.0); %Eosinophils 2.8 % (0.0-10.0); %Lymphocytes 9.7 % (21.0-51.0); %Monocytes 10.3 % (0.0-10.0); %Neutrophils 76.2 % (42.0-75.0); Hemoglobin 6.5 g/dL (14.0-18.0); Mean Corpuscular HGB CONC 31.7 g/dL (32.0-36.0); Mean Corpuscular Hemoglobin 31.8 pg (27.0-31.0); Mean Platelet Volume 7.1 fL (7.4-10.4); Platelet Count 245 thou/uL (130-400); RBC Distribution Width 17.1 % (11.5-14.5); Red Blood Cell (RBC) Count 2.04 mill/uL (4.70-6.10); White Blood Cell (WBC) Count 13.2 thou/uL (4.8-10.8)
[2020-08-05 05:53] LABS: Anion Gap 11 mmol/L (10-20); BUN (Urea Nitrogen) 34 mg/dL (8.4-25.7); Calc. Creatinine Clearance 32 mL/min (70-130); Calcium 7.5 mg/dL (7.8-10.44); Carbon Dioxide 29 mmol/L (22-29); Chloride 100 mmol/L (98-107); Glucose 256 mg/dL (70-105); Potassium 4.3 mmol/L (3.5-5.1); Sodium 136 mmol/L (136-145)
[2020-08-05] MEDS: HumaLOG 300 UNITS/3 ML VIAL SC PRN ×3 (06:38→21:09)
[2020-08-05] MEDS: hydrALAZINE 25 MG TAB PO SCH ×3 (09:25→21:08)
[2020-08-05] MEDS: Tamsulosin HCl 0.4 MG CAP PO SCH (09:25)
[2020-08-05] MEDS: cloNIDine 0.1 MG TAB PO SCH ×2 (09:26→21:07)
[2020-08-05] MEDS: Aspirin 81 mg Enteric Coated Tablet PO SCH (09:26)
[2020-08-05] MEDS: Carvedilol 25 MG TAB PO SCH ×2 (09:26→17:36)
[2020-08-05] MEDS: Allopurinol 100 MG TAB PO SCH (09:26)
[2020-08-05] MEDS: Cholecalciferol 1,000 UNITS (25 MCG) TAB PO SCH (09:27)
[2020-08-05] MEDS: Bupropion 150 MG XL TAB PO SCH (09:27)
[2020-08-05] MEDS: Ascorbic Acid 500 mg Chewable Tablet PO SCH ×2 (09:28→21:08)
[2020-08-05] MEDS: TICAGRELOR 90 MG TABLET PO SCH ×2 (09:28→21:09)
[2020-08-05] MEDS: Ferrous Sulfate 325 MG TAB PO SCH (09:28)
[2020-08-05] MEDS: Lantus 1000 UNITS/10 ML VIAL SC SCH (09:29)
[2020-08-05] MEDS: Acetaminophen 325 MG TAB PO PRN (11:19)
[2020-08-05] MEDS: Atorvastatin Calcium 40 MG TAB PO SCH (21:08)
[2020-08-06 04:30] LABS: #Basophils 0.1 thou/uL (0.0-0.2); #Eosinphils 0.4 thou/uL (0.0-0.7); #Lymphocytes 1.2 thou/uL (1.20-3.40); #Monocytes 1.4 thou/uL (0.11-0.59); #Neutrophils 11.3 thou/uL (1.40-6.50); %Eosinophils 2.8 % (0.0-10.0); %Lymphocytes 8.3 % (21.0-51.0); %Monocytes 9.6 % (0.0-10.0); %Neutrophils 78.3 % (42.0-75.0); Hemoglobin 7.7 g/dL (14.0-18.0); Mean Corpuscular HGB CONC 33.2 g/dL (32.0-36.0); Mean Corpuscular Hemoglobin 32.3 pg (27.0-31.0); Mean Corpuscular Volume 97.1 fL (78.0-98.0); Mean Platelet Volume 6.9 fL (7.4-10.4); Platelet Count 246 thou/uL (130-400); RBC Distribution Width 16.5 % (11.5-14.5); Red Blood Cell (RBC) Count 2.39 mill/uL (4.70-6.10); White Blood Cell (WBC) Count 14.5 thou/uL (4.8-10.8)
[2020-08-06 04:50] LABS: Anion Gap 12 mmol/L (10-20); BUN (Urea Nitrogen) 46 mg/dL (8.4-25.7); Calc. Creatinine Clearance 24 mL/min (70-130); Calcium 7.9 mg/dL (7.8-10.44); Carbon Dioxide 26 mmol/L (22-29); Chloride 103 mmol/L (98-107); Glucose 187 mg/dL (70-105); Potassium 4.8 mmol/L (3.5-5.1); Sodium 136 mmol/L (136-145)
[2020-08-06] MEDS: HumaLOG 300 UNITS/3 ML VIAL SC PRN (05:59)
[2020-08-06] MEDS ORDERED: Heparin 10,000 UNITS/ 10 ML VIAL ONE (09:10)
[2020-08-06] MEDS: Senokot S 8.6-50 MG TAB PO SCH ×2 (13:42→21:04)
[2020-08-06] MEDS: Carvedilol 25 MG TAB PO SCH ×2 (13:43→16:27)
[2020-08-06] MEDS: Ferrous Sulfate 325 MG TAB PO SCH (13:43)
[2020-08-06] MEDS: hydrALAZINE 25 MG TAB PO SCH ×3 (13:43→21:04)
[2020-08-06] MEDS: Ascorbic Acid 500 mg Chewable Tablet PO SCH ×2 (13:43→21:04)
[2020-08-06] MEDS: Tamsulosin HCl 0.4 MG CAP PO SCH (13:44)
[2020-08-06] MEDS: Aspirin 81 mg Enteric Coated Tablet PO SCH (13:44)
[2020-08-06] MEDS: Bupropion 150 MG XL TAB PO SCH (13:44)
[2020-08-06] MEDS: TICAGRELOR 90 MG TABLET PO SCH ×2 (13:44→21:05)
[2020-08-06] MEDS: cloNIDine 0.2 MG TAB PO SCH ×2 (13:44→21:04)
[2020-08-06] MEDS: Cholecalciferol 1,000 UNITS (25 MCG) TAB PO SCH (13:44)
[2020-08-06] MEDS: Lantus 1000 UNITS/10 ML VIAL SC SCH ×2 (13:45→17:13)
[2020-08-06] MEDS: Polyethylene Glycol 3350 17 GM Packet PO SCH (13:45)
[2020-08-06] MEDS: Acetaminophen 325 MG TAB PO PRN (16:28)
[2020-08-06] MEDS: Atorvastatin Calcium 40 MG TAB PO SCH (21:04)
[2020-08-07 04:51] LABS: #Basophils 0.1 thou/uL (0.0-0.2); #Eosinphils 0.3 thou/uL (0.0-0.7); #Monocytes 1.3 thou/uL (0.11-0.59); #Neutrophils 11.4 thou/uL (1.40-6.50); %Basophils 0.9 % (0.0-1.0); %Eosinophils 2.2 % (0.0-10.0); %Lymphocytes 7.4 % (21.0-51.0); %Monocytes 9.4 % (0.0-10.0); %Neutrophils 80.2 % (42.0-75.0); Hemoglobin 7.6 g/dL (14.0-18.0); Mean Corpuscular HGB CONC 32.4 g/dL (32.0-36.0); Mean Corpuscular Hemoglobin 31.9 pg (27.0-31.0); Mean Corpuscular Volume 98.6 fL (78.0-98.0); Platelet Count 268 thou/uL (130-400); RBC Distribution Width 16.5 % (11.5-14.5); Red Blood Cell (RBC) Count 2.38 mill/uL (4.70-6.10); White Blood Cell (WBC) Count 14.2 thou/uL (4.8-10.8)
[2020-08-07 05:15] LABS: Anion Gap 11 mmol/L (10-20); BUN (Urea Nitrogen) 35 mg/dL (8.4-25.7); Calc. Creatinine Clearance 31 mL/min (70-130); Calcium 7.8 mg/dL (7.8-10.44); Carbon Dioxide 28 mmol/L (22-29); Chloride 103 mmol/L (98-107); Glucose 292 mg/dL (70-105); Potassium 4.3 mmol/L (3.5-5.1); Sodium 138 mmol/L (136-145)
[2020-08-07] MEDS: HumaLOG 300 UNITS/3 ML VIAL SC PRN ×3 (06:19→17:47)
[2020-08-07] MEDS: cloNIDine 0.2 MG TAB PO SCH ×2 (08:21→20:42)
[2020-08-07] MEDS: Cholecalciferol 1,000 UNITS (25 MCG) TAB PO SCH (08:22)
[2020-08-07] MEDS: Ascorbic Acid 500 mg Chewable Tablet PO SCH ×2 (08:22→20:42)
[2020-08-07] MEDS: Allopurinol 100 MG TAB PO SCH (08:22)
[2020-08-07] MEDS: Bupropion 150 MG XL TAB PO SCH (08:22)
[2020-08-07] MEDS: Polyethylene Glycol 3350 17 GM Packet PO SCH (08:23)
[2020-08-07] MEDS: Tamsulosin HCl 0.4 MG CAP PO SCH (08:23)
[2020-08-07] MEDS: hydrALAZINE 25 MG TAB PO SCH ×3 (08:23→20:42)
[2020-08-07] MEDS: Aspirin 81 mg Enteric Coated Tablet PO SCH (08:23)
[2020-08-07] MEDS: Carvedilol 25 MG TAB PO SCH ×2 (08:23→17:46)
[2020-08-07] MEDS: Senokot S 8.6-50 MG TAB PO SCH ×2 (08:24→20:43)
[2020-08-07] MEDS: Ferrous Sulfate 325 MG TAB PO SCH (08:24)
[2020-08-07] MEDS: Lantus 1000 UNITS/10 ML VIAL SC SCH (08:25)
[2020-08-07] MEDS: TICAGRELOR 90 MG TABLET PO SCH ×2 (08:27→20:42)
[2020-08-07] MEDS ORDERED: hydrALAZINE 25 MG TAB PO SCH ×2 (09:00→09:15)
[2020-08-07] MEDS: Atorvastatin Calcium 40 MG TAB PO SCH (20:43)
[2020-08-08] MEDS: Acetaminophen 325 MG TAB PO PRN ×2 (01:50→21:58)
[2020-08-08] MEDS: HumaLOG 300 UNITS/3 ML VIAL SC PRN ×2 (05:57→17:24)
[2020-08-08] MEDS: Aspirin 81 mg Enteric Coated Tablet PO SCH (08:26)
[2020-08-08] MEDS: cloNIDine 0.2 MG TAB PO SCH ×2 (08:26→21:56)
[2020-08-08] MEDS: Ferrous Sulfate 325 MG TAB PO SCH (08:29)
[2020-08-08] MEDS: Ascorbic Acid 500 mg Chewable Tablet PO SCH ×2 (08:29→21:50)
[2020-08-08] MEDS: Bupropion 150 MG XL TAB PO SCH (08:29)
[2020-08-08] MEDS: Tamsulosin HCl 0.4 MG CAP PO SCH (08:29)
[2020-08-08] MEDS: hydrALAZINE 25 MG TAB PO SCH ×3 (08:29→21:57)
[2020-08-08] MEDS: Senokot S 8.6-50 MG TAB PO SCH ×2 (08:30→21:59)
[2020-08-08] MEDS: Cholecalciferol 1,000 UNITS (25 MCG) TAB PO SCH (08:30)
[2020-08-08] MEDS: Carvedilol 25 MG TAB PO SCH ×2 (08:31→17:23)
[2020-08-08] MEDS: TICAGRELOR 90 MG TABLET PO SCH ×2 (08:31→21:57)
[2020-08-08] MEDS: Polyethylene Glycol 3350 17 GM Packet PO SCH (08:32)
[2020-08-08] MEDS ORDERED: Lantus 1000 UNITS/10 ML VIAL SC SCH (09:00)
[2020-08-08] MEDS ORDERED: hydrALAZINE 25 MG TAB PO SCH ×2 (09:30→10:00)
[2020-08-08 10:15] LABS: #Basophils 0.1 thou/uL (0.0-0.2); #Eosinphils 0.3 thou/uL (0.0-0.7); #Lymphocytes 0.8 thou/uL (1.20-3.40); #Neutrophils 12.5 thou/uL (1.40-6.50); %Basophils 0.7 % (0.0-1.0); %Eosinophils 2.4 % (0.0-10.0); %Lymphocytes 5.3 % (21.0-51.0); %Monocytes 6.5 % (0.0-10.0); %Neutrophils 85.2 % (42.0-75.0); Hemoglobin 7.7 g/dL (14.0-18.0); Mean Corpuscular HGB CONC 32.5 g/dL (32.0-36.0); Mean Corpuscular Volume 98.5 fL (78.0-98.0); Mean Platelet Volume 6.4 fL (7.4-10.4); Platelet Count 253 thou/uL (130-400); RBC Distribution Width 16.4 % (11.5-14.5); Red Blood Cell (RBC) Count 2.41 mill/uL (4.70-6.10); White Blood Cell (WBC) Count 14.6 thou/uL (4.8-10.8)
[2020-08-08 10:35] LABS: Anion Gap 13 mmol/L (10-20); BUN (Urea Nitrogen) 54 mg/dL (8.4-25.7); Calc. Creatinine Clearance 27 mL/min (70-130); Carbon Dioxide 26 mmol/L (22-29); Chloride 103 mmol/L (98-107); Glucose 221 mg/dL (70-105); Potassium 4.4 mmol/L (3.5-5.1); Sodium 138 mmol/L (136-145)
[2020-08-08] MEDS: EPOETIN ALFA-EPBX (ESRD) 3,000 UNIT/ML VIAL SC SCH (11:10)
[2020-08-08] MEDS ORDERED: Furosemide 20 MG/2 ML VIAL SLOW IVP SCH (15:00)
[2020-08-08] MEDS: Atorvastatin Calcium 40 MG TAB PO SCH (21:57)
[2020-08-09 05:10] LABS: Hemoglobin 7.4 g/dL (14.0-18.0); Mean Corpuscular HGB CONC 33.2 g/dL (32.0-36.0); Mean Corpuscular Hemoglobin 33.3 pg (27.0-31.0); Mean Platelet Volume 6.5 fL (7.4-10.4); Platelet Count 246 thou/uL (130-400); RBC Distribution Width 16.7 % (11.5-14.5); Red Blood Cell (RBC) Count 2.21 mill/uL (4.70-6.10); White Blood Cell (WBC) Count 11.8 thou/uL (4.8-10.8)
[2020-08-09 05:35] LABS: Anion Gap 14 mmol/L (10-20); BUN (Urea Nitrogen) 63 mg/dL (8.4-25.7); Calc. Creatinine Clearance 23 mL/min (70-130); Calcium 8.2 mg/dL (7.8-10.44); Carbon Dioxide 27 mmol/L (22-29); Chloride 103 mmol/L (98-107); Glucose 160 mg/dL (70-105); Potassium 4.9 mmol/L (3.5-5.1); Sodium 139 mmol/L (136-145)
[2020-08-09] MEDS: HumaLOG 300 UNITS/3 ML VIAL SC PRN (06:16)
[2020-08-09] MEDS: Acetaminophen 325 MG TAB PO PRN ×2 (07:35→14:26)
[2020-08-09] MEDS ORDERED: Heparin 10,000 UNITS/ 10 ML VIAL ONE (08:50)
[2020-08-09] MEDS: Cholecalciferol 1,000 UNITS (25 MCG) TAB PO SCH ×2 (11:35→11:38)
[2020-08-09] MEDS: Ferrous Sulfate 325 MG TAB PO SCH (11:36)
[2020-08-09] MEDS: Aspirin 81 mg Enteric Coated Tablet PO SCH (11:36)
[2020-08-09] MEDS: TICAGRELOR 90 MG TABLET PO SCH ×2 (11:36→21:21)
[2020-08-09] MEDS: Bupropion 150 MG XL TAB PO SCH (11:37)
[2020-08-09] MEDS: hydrALAZINE 25 MG TAB PO SCH ×3 (11:37→21:20)
[2020-08-09] MEDS: Allopurinol 100 MG TAB PO SCH (11:37)
[2020-08-09] MEDS: Carvedilol 25 MG TAB PO SCH ×2 (11:37→15:44)
[2020-08-09] MEDS: Ascorbic Acid 500 mg Chewable Tablet PO SCH ×2 (11:38→21:19)
[2020-08-09] MEDS: Senokot S 8.6-50 MG TAB PO SCH ×3 (11:38→21:24)
[2020-08-09] MEDS: cloNIDine 0.2 MG TAB PO SCH ×2 (11:38→21:20)
[2020-08-09] MEDS: Tamsulosin HCl 0.4 MG CAP PO SCH (11:38)
[2020-08-09] MEDS: Lantus 1000 UNITS/10 ML VIAL SC SCH (11:39)
[2020-08-09] MEDS: Polyethylene Glycol 3350 17 GM Packet PO SCH (11:39)
[2020-08-09] MEDS ORDERED: Acetaminophen 500 MG TAB PO SCH (14:15)
[2020-08-09] MEDS: Atorvastatin Calcium 40 MG TAB PO SCH (21:19)
[2020-08-09] MEDS: Acetaminophen/Codeine 30-300mg Tablet PO PRN (21:21)
[2020-08-10] MEDS: Acetaminophen/Codeine 30-300mg Tablet PO PRN ×3 (06:06→20:50)
[2020-08-10] MEDS ORDERED: Heparin 10,000 UNITS/ 10 ML VIAL ONE (08:38)
[2020-08-10] MEDS: cloNIDine 0.3 MG TAB PO SCH ×2 (11:22→21:41)
[2020-08-10] MEDS: hydrALAZINE 25 MG TAB PO SCH ×3 (11:22→20:49)
[2020-08-10] MEDS: Senokot S 8.6-50 MG TAB PO SCH ×2 (11:22→20:50)
[2020-08-10] MEDS: Ferrous Sulfate 325 MG TAB PO SCH (11:23)
[2020-08-10] MEDS: Aspirin 81 mg Enteric Coated Tablet PO SCH (11:23)
[2020-08-10] MEDS: Carvedilol 25 MG TAB PO SCH ×2 (11:23→17:12)
[2020-08-10] MEDS: Bupropion 150 MG XL TAB PO SCH (11:24)
[2020-08-10] MEDS: Tamsulosin HCl 0.4 MG CAP PO SCH (11:24)
[2020-08-10] MEDS: Cholecalciferol 1,000 UNITS (25 MCG) TAB PO SCH (11:25)
[2020-08-10] MEDS: Ascorbic Acid 500 mg Chewable Tablet PO SCH ×2 (11:25→20:49)
[2020-08-10] MEDS: TICAGRELOR 90 MG TABLET PO SCH ×2 (11:25→21:41)
[2020-08-10] MEDS: Lantus 1000 UNITS/10 ML VIAL SC SCH (11:26)
[2020-08-10] MEDS: Polyethylene Glycol 3350 17 GM Packet PO SCH (11:26)
[2020-08-10] MEDS ORDERED: Dextrose 50% Abboject 50 ML SYRINGE ONE (16:45)
[2020-08-10] MEDS: Atorvastatin Calcium 40 MG TAB PO SCH (20:50)
[2020-08-11 07:06] LABS: Hemoglobin 7.5 g/dL (14.0-18.0); Mean Corpuscular HGB CONC 31.8 g/dL (32.0-36.0); Mean Corpuscular Hemoglobin 32.7 pg (27.0-31.0); Mean Platelet Volume 6.5 fL (7.4-10.4); Platelet Count 265 thou/uL (130-400); RBC Distribution Width 16.9 % (11.5-14.5); White Blood Cell (WBC) Count 11.3 thou/uL (4.8-10.8)
[2020-08-11 07:27] LABS: Anion Gap 13 mmol/L (10-20); BUN (Urea Nitrogen) 31 mg/dL (8.4-25.7); Calc. Creatinine Clearance 33 mL/min (70-130); Calcium 8.2 mg/dL (7.8-10.44); Carbon Dioxide 30 mmol/L (22-29); Chloride 102 mmol/L (98-107); Glucose 87 mg/dL (70-105); Potassium 4.5 mmol/L (3.5-5.1); Sodium 140 mmol/L (136-145)
[2020-08-11] MEDS ORDERED: Heparin 10,000 UNITS/ 10 ML VIAL ONE (09:14)
[2020-08-11] MEDS: Aspirin 81 mg Enteric Coated Tablet PO SCH (12:50)
[2020-08-11] MEDS: Senokot S 8.6-50 MG TAB PO SCH ×2 (12:50→20:40)
[2020-08-11] MEDS: Ascorbic Acid 500 mg Chewable Tablet PO SCH ×2 (12:50→20:38)
[2020-08-11] MEDS: Carvedilol 25 MG TAB PO SCH ×2 (12:51→17:47)
[2020-08-11] MEDS: Bupropion 150 MG XL TAB PO SCH (12:53)
[2020-08-11] MEDS: Ferrous Sulfate 325 MG TAB PO SCH (12:53)
[2020-08-11] MEDS: Allopurinol 100 MG TAB PO SCH (12:54)
[2020-08-11] MEDS: hydrALAZINE 25 MG TAB PO SCH ×3 (12:54→20:39)
[2020-08-11] MEDS: TICAGRELOR 90 MG TABLET PO SCH ×2 (12:54→20:41)
[2020-08-11] MEDS: cloNIDine 0.3 MG TAB PO SCH ×2 (12:55→20:40)
[2020-08-11] MEDS: Tamsulosin HCl 0.4 MG CAP PO SCH (12:55)
[2020-08-11] MEDS: Polyethylene Glycol 3350 17 GM Packet PO SCH (12:55)
[2020-08-11] MEDS: Acetaminophen/Codeine 30-300mg Tablet PO PRN ×2 (13:05→20:37)
[2020-08-11] MEDS: Lantus 1000 UNITS/10 ML VIAL SC SCH (15:17)
[2020-08-11] MEDS: HumaLOG 300 UNITS/3 ML VIAL SC PRN (17:48)
[2020-08-11] MEDS: Atorvastatin Calcium 40 MG TAB PO SCH (20:40)
[2020-08-12] MEDS: HumaLOG 300 UNITS/3 ML VIAL SC PRN ×2 (06:00→12:27)
[2020-08-12] MEDS: PARoxetine 20 MG TAB PO SCH (09:26)
[2020-08-12] MEDS: Ascorbic Acid 500 mg Chewable Tablet PO SCH ×2 (09:26→23:45)
[2020-08-12] MEDS: Senokot S 8.6-50 MG TAB PO SCH ×2 (09:27→23:44)
[2020-08-12] MEDS: Tamsulosin HCl 0.4 MG CAP PO SCH (09:27)
[2020-08-12] MEDS: cloNIDine 0.3 MG TAB PO SCH ×2 (09:27→23:46)
[2020-08-12] MEDS: Aspirin 81 mg Enteric Coated Tablet PO SCH (09:28)
[2020-08-12] MEDS: Ferrous Sulfate 325 MG TAB PO SCH (09:28)
[2020-08-12] MEDS: Cholecalciferol 1,000 UNITS (25 MCG) TAB PO SCH (09:28)
[2020-08-12] MEDS: hydrALAZINE 25 MG TAB PO SCH ×4 (09:30→23:47)
[2020-08-12] MEDS: Acetaminophen/Codeine 30-300mg Tablet PO PRN (09:31)
[2020-08-12] MEDS: Carvedilol 25 MG TAB PO SCH ×2 (09:31→17:43)
[2020-08-12] MEDS: Polyethylene Glycol 3350 17 GM Packet PO SCH (09:33)
[2020-08-12] MEDS: Lantus 1000 UNITS/10 ML VIAL SC SCH (09:33)
[2020-08-12] MEDS ORDERED: Bupropion 150 MG XL TAB PO SCH (09:45)
[2020-08-12] MEDS: TICAGRELOR 90 MG TABLET PO SCH ×2 (09:51→23:45)
[2020-08-12] MEDS ORDERED: cloNIDine 0.3mg/24 Hour PATCH TD SCH ×2 (10:30→13:15)
[2020-08-12] MEDS: Ondansetron PF 4 MG/2 ML Vial IVP PRN ×2 (12:26→18:28)
[2020-08-12 19:51] LABS: Base Excess 5.9 mEq/L (-2.0 to +3.0); Chloride (VBG) 101 mmol/L (98-106); Hemoglobin (Hb) 7.4 g/dL (13.1-17.2); Potassium (VBG) 5.35 mmol/L (3.70-5.30); Sodium 136.6 mmol/L (133-146); pH (venous) 7.34 (7.32-7.43)
[2020-08-12 19:54] LABS: Actual Bicarbonate (HCO3v) 32 mEq/L (22-28)
[2020-08-12] MEDS: Atorvastatin Calcium 40 MG TAB PO SCH (23:45)
[2020-08-13 06:06] LABS: Hemoglobin 6.8 g/dL (14.0-18.0); Mean Corpuscular HGB CONC 31.3 g/dL (32.0-36.0); Mean Platelet Volume 6.2 fL (7.4-10.4); Platelet Count 230 thou/uL (130-400); RBC Distribution Width 17.1 % (11.5-14.5); Red Blood Cell (RBC) Count 2.05 mill/uL (4.70-6.10); White Blood Cell (WBC) Count 10.4 thou/uL (4.8-10.8)
[2020-08-13 06:19] LABS: Anion Gap 13 mmol/L (10-20); BUN (Urea Nitrogen) 42 mg/dL (8.4-25.7); Calc. Creatinine Clearance 27 mL/min (70-130); Calcium 8.3 mg/dL (7.8-10.44); Carbon Dioxide 30 mmol/L (22-29); Chloride 102 mmol/L (98-107); Glucose 95 mg/dL (70-105); Potassium 5.6 mmol/L (3.5-5.1); Sodium 139 mmol/L (136-145)
[2020-08-13 08:09] LABS: Hemoglobin 6.8 g/dL (14.0-18.0)
[2020-08-13] MEDS: Aspirin 81 mg Enteric Coated Tablet PO SCH (08:34)
[2020-08-13] MEDS: hydrALAZINE 25 MG TAB PO SCH ×3 (08:34→20:44)
[2020-08-13] MEDS: Ferrous Sulfate 325 MG TAB PO SCH (08:34)
[2020-08-13] MEDS: Senokot S 8.6-50 MG TAB PO SCH ×2 (08:34→20:43)
[2020-08-13] MEDS: cloNIDine 0.3 MG TAB PO SCH (08:34)
[2020-08-13] MEDS: Allopurinol 100 MG TAB PO SCH (08:35)
[2020-08-13] MEDS: Ascorbic Acid 500 mg Chewable Tablet PO SCH ×2 (08:35→20:44)
[2020-08-13] MEDS: Tamsulosin HCl 0.4 MG CAP PO SCH (08:35)
[2020-08-13] MEDS: Lantus 1000 UNITS/10 ML VIAL SC SCH (08:35)
[2020-08-13] MEDS: Carvedilol 25 MG TAB PO SCH ×2 (08:35→16:08)
[2020-08-13] MEDS: Cholecalciferol 1,000 UNITS (25 MCG) TAB PO SCH (08:35)
[2020-08-13] MEDS: PARoxetine 20 MG TAB PO SCH (08:35)
[2020-08-13] MEDS: TICAGRELOR 90 MG TABLET PO SCH ×2 (08:35→20:44)
[2020-08-13] MEDS: Bupropion 150 MG XL TAB PO SCH (08:35)
[2020-08-13] MEDS: Polyethylene Glycol 3350 17 GM Packet PO SCH (08:36)
[2020-08-13] MEDS: Ondansetron PF 4 MG/2 ML Vial IVP PRN (08:47)
[2020-08-13] MEDS ORDERED: Heparin 10,000 UNITS/ 10 ML VIAL ONE (09:10)
[2020-08-13] MEDS ORDERED: Furosemide 20 MG TAB PO SCH (10:20)
[2020-08-13] MEDS: Dextrose 50% Abboject 50 ML SYRINGE SLOW IVP PRN ×2 (12:34→19:32)
[2020-08-13] MEDS ORDERED: Dextrose 50% Abboject 50 ML SYRINGE ONE (17:04)
[2020-08-13 17:10] LABS: Hemoglobin 7.4 g/dL (14.0-18.0)
[2020-08-13] MEDS: Atorvastatin Calcium 40 MG TAB PO SCH (20:44)
[2020-08-14 06:30] LABS: #Basophils 0.1 thou/uL (0.0-0.2); #Eosinphils 0.1 thou/uL (0.0-0.7); #Lymphocytes 0.7 thou/uL (1.20-3.40); #Monocytes 1.3 thou/uL (0.11-0.59); #Neutrophils 11.9 thou/uL (1.40-6.50); %Basophils 0.5 % (0.0-1.0); %Monocytes 9.5 % (0.0-10.0); %Neutrophils 84.1 % (42.0-75.0); Hemoglobin 8.3 g/dL (14.0-18.0); Mean Corpuscular HGB CONC 32.7 g/dL (32.0-36.0); Mean Corpuscular Hemoglobin 33.6 pg (27.0-31.0); Mean Platelet Volume 5.8 fL (7.4-10.4); Platelet Count 217 thou/uL (130-400); RBC Distribution Width 16.8 % (11.5-14.5); Red Blood Cell (RBC) Count 2.45 mill/uL (4.70-6.10); White Blood Cell (WBC) Count 14.1 thou/uL (4.8-10.8)
[2020-08-14 07:45] LABS: Anion Gap 12 mmol/L (10-20); BUN (Urea Nitrogen) 29 mg/dL (8.4-25.7); Calc. Creatinine Clearance 37 mL/min (70-130); Calcium 8.1 mg/dL (7.8-10.44); Carbon Dioxide 33 mmol/L (22-29); Chloride 97 mmol/L (98-107); Glucose 79 mg/dL (70-105); Sodium 137 mmol/L (136-145)
[2020-08-14] MEDS: Furosemide 40 MG TAB PO SCH ×2 (08:37→14:14)
[2020-08-14] MEDS: Ascorbic Acid 500 mg Chewable Tablet PO SCH ×2 (08:37→20:15)
[2020-08-14] MEDS: Tamsulosin HCl 0.4 MG CAP PO SCH (08:37)
[2020-08-14] MEDS: Carvedilol 25 MG TAB PO SCH ×2 (08:38→15:59)
[2020-08-14] MEDS: hydrALAZINE 25 MG TAB PO SCH ×3 (08:38→20:15)
[2020-08-14] MEDS: Ferrous Sulfate 325 MG TAB PO SCH (08:40)
[2020-08-14] MEDS: Cholecalciferol 1,000 UNITS (25 MCG) TAB PO SCH (08:40)
[2020-08-14] MEDS: Ondansetron PF 4 MG/2 ML Vial IVP PRN (08:41)
[2020-08-14] MEDS: Senokot S 8.6-50 MG TAB PO SCH ×2 (08:41→20:15)
[2020-08-14] MEDS: Bupropion 150 MG XL TAB PO SCH (08:41)
[2020-08-14] MEDS: Aspirin 81 mg Enteric Coated Tablet PO SCH (08:41)
[2020-08-14] MEDS: TICAGRELOR 90 MG TABLET PO SCH ×2 (08:41→20:15)
[2020-08-14] MEDS: Polyethylene Glycol 3350 17 GM Packet PO SCH (08:42)
[2020-08-14] MEDS ORDERED: Lantus 1000 UNITS/10 ML VIAL SC SCH (09:00)
[2020-08-14] MEDS: Acetaminophen/Codeine 30-300mg Tablet PO PRN (10:10)
[2020-08-14] MEDS ORDERED: Acetaminophen 325 MG TAB PO PRN (15:27)
[2020-08-14] MEDS: Atorvastatin Calcium 40 MG TAB PO SCH (20:15)
[2020-08-14] MEDS ORDERED: PARoxetine 20 MG TAB PO SCH (21:00)
[2020-08-15 06:23] LABS: #Eosinphils 0.1 thou/uL (0.0-0.7); #Lymphocytes 0.5 thou/uL (1.20-3.40); #Monocytes 0.7 thou/uL (0.11-0.59); #Neutrophils 8.5 thou/uL (1.40-6.50); %Basophils 0.3 % (0.0-1.0); %Lymphocytes 5.5 % (21.0-51.0); %Monocytes 7.5 % (0.0-10.0); %Neutrophils 85.8 % (42.0-75.0); Hemoglobin 8.1 g/dL (14.0-18.0); Mean Corpuscular HGB CONC 31.2 g/dL (32.0-36.0); Mean Corpuscular Hemoglobin 32.2 pg (27.0-31.0); Mean Platelet Volume 6.4 fL (7.4-10.4); Platelet Count 239 thou/uL (130-400); RBC Distribution Width 16.5 % (11.5-14.5); Red Blood Cell (RBC) Count 2.52 mill/uL (4.70-6.10); White Blood Cell (WBC) Count 9.9 thou/uL (4.8-10.8)
[2020-08-15 06:45] LABS: Anion Gap 17 mmol/L (10-20); BUN (Urea Nitrogen) 45 mg/dL (8.4-25.7); Calc. Creatinine Clearance 29 mL/min (70-130); Calcium 8.2 mg/dL (7.8-10.44); Carbon Dioxide 28 mmol/L (22-29); Chloride 96 mmol/L (98-107); Glucose 105 mg/dL (70-105); Potassium 5.7 mmol/L (3.5-5.1); Sodium 135 mmol/L (136-145)
[2020-08-15] MEDS: Ferrous Sulfate 325 MG TAB PO SCH (08:28)
[2020-08-15] MEDS: Ascorbic Acid 500 mg Chewable Tablet PO SCH ×3 (08:28→23:09)
[2020-08-15] MEDS: Carvedilol 25 MG TAB PO SCH ×2 (08:28→16:59)
[2020-08-15] MEDS: hydrALAZINE 25 MG TAB PO SCH ×3 (08:28→21:12)
[2020-08-15] MEDS: Senokot S 8.6-50 MG TAB PO SCH ×2 (08:29→21:12)
[2020-08-15] MEDS: Aspirin 81 mg Enteric Coated Tablet PO SCH (08:29)
[2020-08-15] MEDS: Allopurinol 100 MG TAB PO SCH (08:29)
[2020-08-15] MEDS: Tamsulosin HCl 0.4 MG CAP PO SCH (08:29)
[2020-08-15] MEDS: Furosemide 40 MG TAB PO SCH ×2 (08:29→14:10)
[2020-08-15] MEDS: Bupropion 150 MG XL TAB PO SCH (08:29)
[2020-08-15] MEDS: Cholecalciferol 1,000 UNITS (25 MCG) TAB PO SCH (08:29)
[2020-08-15] MEDS: TICAGRELOR 90 MG TABLET PO SCH ×3 (08:30→23:09)
[2020-08-15] MEDS: Polyethylene Glycol 3350 17 GM Packet PO SCH (08:30)
[2020-08-15] MEDS: Ondansetron PF 4 MG/2 ML Vial IVP PRN (08:42)
[2020-08-15] MEDS: Acetaminophen/Codeine 30-300mg Tablet PO PRN (08:59)
[2020-08-15] MEDS ORDERED: Metoclopramide HCl 10 MG TAB PO PRN (09:56)
[2020-08-15] MEDS: EPOETIN ALFA-EPBX (ESRD) 3,000 UNIT/ML VIAL SC SCH (09:59)
[2020-08-15] MEDS: Atorvastatin Calcium 40 MG TAB PO SCH (21:13)
[2020-08-16] MEDS: hydrALAZINE 25 MG TAB PO SCH ×3 (08:27→21:08)
[2020-08-16] MEDS: TICAGRELOR 90 MG TABLET PO SCH ×2 (08:28→21:04)
[2020-08-16] MEDS: Cholecalciferol 1,000 UNITS (25 MCG) TAB PO SCH (08:28)
[2020-08-16] MEDS: Bupropion 150 MG XL TAB PO SCH (08:28)
[2020-08-16] MEDS: Carvedilol 25 MG TAB PO SCH ×2 (08:28→18:26)
[2020-08-16] MEDS: Ascorbic Acid 500 mg Chewable Tablet PO SCH ×2 (08:29→21:07)
[2020-08-16] MEDS: Ferrous Sulfate 325 MG TAB PO SCH (08:29)
[2020-08-16] MEDS: Furosemide 40 MG TAB PO SCH ×2 (08:29→13:29)
[2020-08-16] MEDS: Polyethylene Glycol 3350 17 GM Packet PO SCH (08:29)
[2020-08-16] MEDS: Senokot S 8.6-50 MG TAB PO SCH ×2 (08:29→21:07)
[2020-08-16] MEDS: Aspirin 81 mg Enteric Coated Tablet PO SCH (08:29)
[2020-08-16] MEDS: Tamsulosin HCl 0.4 MG CAP PO SCH (08:29)
[2020-08-16] MEDS ORDERED: Heparin 10,000 UNITS/ 10 ML VIAL ONE (09:06)
[2020-08-16] MEDS ORDERED: NIFEdipine XL 30 MG TAB PO SCH (11:30)
[2020-08-16 16:43] LABS: #Lymphocytes 0.7 thou/uL (1.20-3.40); #Monocytes 1.3 thou/uL (0.11-0.59); #Neutrophils 8.4 thou/uL (1.40-6.50); %Basophils 0.5 % (0.0-1.0); %Eosinophils 0.5 % (0.0-10.0); %Lymphocytes 6.4 % (21.0-51.0); %Monocytes 12.3 % (0.0-10.0); %Neutrophils 80.4 % (42.0-75.0); Hemoglobin 8.2 g/dL (14.0-18.0); Mean Corpuscular HGB CONC 32.2 g/dL (32.0-36.0); Mean Corpuscular Hemoglobin 32.5 pg (27.0-31.0); Mean Platelet Volume 6.1 fL (7.4-10.4); Platelet Count 213 thou/uL (130-400); RBC Distribution Width 16.5 % (11.5-14.5); Red Blood Cell (RBC) Count 2.53 mill/uL (4.70-6.10); White Blood Cell (WBC) Count 10.5 thou/uL (4.8-10.8)
[2020-08-16 17:02] LABS: Anion Gap 12 mmol/L (10-20); BUN (Urea Nitrogen) 26 mg/dL (8.4-25.7); Calc. Creatinine Clearance 47 mL/min (70-130); Calcium 8.1 mg/dL (7.8-10.44); Carbon Dioxide 30 mmol/L (22-29); Chloride 98 mmol/L (98-107); Glucose 102 mg/dL (70-105); Potassium 3.7 mmol/L (3.5-5.1); Sodium 136 mmol/L (136-145)
[2020-08-16] MEDS: Acetaminophen/Codeine 30-300mg Tablet PO PRN (18:34)
[2020-08-16] MEDS: Atorvastatin Calcium 40 MG TAB PO SCH (21:07)
[2020-08-16] MEDS ORDERED: Metoprolol Tartrate 5 MG/5 ML VIAL IVP PRN (22:12)
[2020-08-17 04:47] LABS: #Lymphocytes 0.5 thou/uL (1.20-3.40); #Monocytes 1.1 thou/uL (0.11-0.59); #Neutrophils 7.2 thou/uL (1.40-6.50); %Basophils 0.3 % (0.0-1.0); %Eosinophils 0.5 % (0.0-10.0); %Lymphocytes 5.6 % (21.0-51.0); %Neutrophils 81.5 % (42.0-75.0); Hemoglobin 8.2 g/dL (14.0-18.0); Mean Corpuscular HGB CONC 31.8 g/dL (32.0-36.0); Mean Corpuscular Hemoglobin 32.5 pg (27.0-31.0); Mean Platelet Volume 6.3 fL (7.4-10.4); Platelet Count 207 thou/uL (130-400); RBC Distribution Width 16.3 % (11.5-14.5); Red Blood Cell (RBC) Count 2.51 mill/uL (4.70-6.10); White Blood Cell (WBC) Count 8.8 thou/uL (4.8-10.8)
[2020-08-17 05:22] LABS: Anion Gap 13 mmol/L (10-20); BUN (Urea Nitrogen) 38 mg/dL (8.4-25.7); Calc. Creatinine Clearance 34 mL/min (70-130); Carbon Dioxide 30 mmol/L (22-29); Chloride 97 mmol/L (98-107); Glucose 100 mg/dL (70-105); Potassium 4.4 mmol/L (3.5-5.1); Sodium 136 mmol/L (136-145)
[2020-08-17] MEDS: Senokot S 8.6-50 MG TAB PO SCH ×2 (09:56→20:20)
[2020-08-17] MEDS: Polyethylene Glycol 3350 17 GM Packet PO SCH (09:56)
[2020-08-17] MEDS: Carvedilol 25 MG TAB PO SCH ×2 (09:57→18:00)
[2020-08-17] MEDS: TICAGRELOR 90 MG TABLET PO SCH ×2 (09:57→20:20)
[2020-08-17] MEDS: hydrALAZINE 25 MG TAB PO SCH ×3 (09:57→20:21)
[2020-08-17] MEDS: Tamsulosin HCl 0.4 MG CAP PO SCH (09:57)
[2020-08-17] MEDS: Ferrous Sulfate 325 MG TAB PO SCH (09:57)
[2020-08-17] MEDS: Cholecalciferol 1,000 UNITS (25 MCG) TAB PO SCH (09:57)
[2020-08-17] MEDS: NIFEdipine XL 30 MG TAB PO SCH (09:58)
[2020-08-17] MEDS: Ascorbic Acid 500 mg Chewable Tablet PO SCH ×2 (09:58→20:19)
[2020-08-17] MEDS: Furosemide 40 MG TAB PO SCH ×2 (09:58→15:10)
[2020-08-17] MEDS: Aspirin 81 mg Enteric Coated Tablet PO SCH (09:58)
[2020-08-17] MEDS: Megestrol Acetate 800 MG/20 ML UDCUP PO SCH (09:58)
[2020-08-17] MEDS: Bupropion 150 MG XL TAB PO SCH (09:58)
[2020-08-17] MEDS: Allopurinol 100 MG TAB PO SCH (09:58)
[2020-08-17] MEDS: Acetaminophen/Codeine 30-300mg Tablet PO PRN (11:10)
[2020-08-17] MEDS: Atorvastatin Calcium 40 MG TAB PO SCH (20:20)
[2020-08-18 05:10] LABS: #Eosinphils 0.2 thou/uL (0.0-0.7); #Lymphocytes 0.6 thou/uL (1.20-3.40); #Monocytes 1.2 thou/uL (0.11-0.59); %Basophils 0.3 % (0.0-1.0); %Eosinophils 2.1 % (0.0-10.0); %Lymphocytes 6.5 % (21.0-51.0); %Monocytes 13.3 % (0.0-10.0); %Neutrophils 77.8 % (42.0-75.0); Hemoglobin 7.6 g/dL (14.0-18.0); Mean Corpuscular HGB CONC 31.5 g/dL (32.0-36.0); Mean Corpuscular Hemoglobin 32.3 pg (27.0-31.0); Mean Platelet Volume 6.5 fL (7.4-10.4); Platelet Count 206 thou/uL (130-400); RBC Distribution Width 16.1 % (11.5-14.5); Red Blood Cell (RBC) Count 2.36 mill/uL (4.70-6.10)
[2020-08-18 05:36] LABS: Anion Gap 14 mmol/L (10-20); BUN (Urea Nitrogen) 48 mg/dL (8.4-25.7); Calc. Creatinine Clearance 25 mL/min (70-130); Calcium 7.7 mg/dL (7.8-10.44); Carbon Dioxide 30 mmol/L (22-29); Chloride 97 mmol/L (98-107); Glucose 168 mg/dL (70-105); Potassium 4.6 mmol/L (3.5-5.1); Sodium 136 mmol/L (136-145)
[2020-08-18] MEDS: HumaLOG 300 UNITS/3 ML VIAL SC PRN ×2 (06:04→17:30)
[2020-08-18] MEDS ORDERED: Heparin 10,000 UNITS/ 10 ML VIAL ONE (11:26)
[2020-08-18] MEDS: hydrALAZINE 25 MG TAB PO SCH ×3 (13:48→21:42)
[2020-08-18] MEDS: Ferrous Sulfate 325 MG TAB PO SCH (13:52)
[2020-08-18] MEDS: Aspirin 81 mg Enteric Coated Tablet PO SCH (13:52)
[2020-08-18] MEDS: Cholecalciferol 1,000 UNITS (25 MCG) TAB PO SCH (13:52)
[2020-08-18] MEDS: TICAGRELOR 90 MG TABLET PO SCH ×2 (13:53→21:43)
[2020-08-18] MEDS: Carvedilol 25 MG TAB PO SCH ×2 (13:53→16:48)
[2020-08-18] MEDS: Ascorbic Acid 500 mg Chewable Tablet PO SCH ×2 (13:54→21:42)
[2020-08-18] MEDS: Furosemide 40 MG TAB PO SCH ×2 (13:54→13:57)
[2020-08-18] MEDS: Bupropion 150 MG XL TAB PO SCH (13:54)
[2020-08-18] MEDS: Megestrol Acetate 800 MG/20 ML UDCUP PO SCH (13:55)
[2020-08-18] MEDS: NIFEdipine XL 30 MG TAB PO SCH (13:55)
[2020-08-18] MEDS: Tamsulosin HCl 0.4 MG CAP PO SCH (13:55)
[2020-08-18] MEDS: Senokot S 8.6-50 MG TAB PO SCH ×2 (13:56→21:43)
[2020-08-18] MEDS: Polyethylene Glycol 3350 17 GM Packet PO SCH (13:56)
[2020-08-18] MEDS: Acetaminophen/Codeine 30-300mg Tablet PO PRN (15:11)
[2020-08-18] MEDS: Atorvastatin Calcium 40 MG TAB PO SCH (21:42)
[2020-08-19 04:48] LABS: #Eosinphils 0.2 thou/uL (0.0-0.7); #Lymphocytes 0.5 thou/uL (1.20-3.40); #Monocytes 1.1 thou/uL (0.11-0.59); #Neutrophils 7.7 thou/uL (1.40-6.50); %Basophils 0.2 % (0.0-1.0); %Eosinophils 2.2 % (0.0-10.0); %Lymphocytes 4.9 % (21.0-51.0); %Monocytes 11.6 % (0.0-10.0); %Neutrophils 81.1 % (42.0-75.0); Hemoglobin 7.6 g/dL (14.0-18.0); Mean Corpuscular HGB CONC 31.8 g/dL (32.0-36.0); Mean Corpuscular Hemoglobin 32.7 pg (27.0-31.0); Mean Platelet Volume 6.6 fL (7.4-10.4); Platelet Count 201 thou/uL (130-400); RBC Distribution Width 16.4 % (11.5-14.5); Red Blood Cell (RBC) Count 2.31 mill/uL (4.70-6.10); White Blood Cell (WBC) Count 9.5 thou/uL (4.8-10.8)
[2020-08-19 05:02] LABS: Anion Gap 13 mmol/L (10-20); BUN (Urea Nitrogen) 33 mg/dL (8.4-25.7); Calc. Creatinine Clearance 28 mL/min (70-130); Calcium 7.6 mg/dL (7.8-10.44); Carbon Dioxide 29 mmol/L (22-29); Chloride 99 mmol/L (98-107); Glucose 218 mg/dL (70-105); Potassium 4.1 mmol/L (3.5-5.1); Sodium 137 mmol/L (136-145)
[2020-08-19] MEDS: HumaLOG 300 UNITS/3 ML VIAL SC PRN ×2 (06:30→17:44)
[2020-08-19 08:28] LABS: Creatinine, Urine 33.58 mg/dL (63-166)
[2020-08-19] MEDS ORDERED: Heparin 10,000 UNITS/ 10 ML VIAL ONE (08:55)
[2020-08-19] MEDS ORDERED: cloNIDine 0.3mg/24 Hour PATCH TD SCH (09:00)
[2020-08-19] MEDS: hydrALAZINE 25 MG TAB PO SCH ×3 (09:54→19:07)
[2020-08-19] MEDS: Carvedilol 25 MG TAB PO SCH ×2 (12:11→17:44)
[2020-08-19] MEDS: NIFEdipine XL 30 MG TAB PO SCH (12:11)
[2020-08-19] MEDS: Ferrous Sulfate 325 MG TAB PO SCH (12:11)
[2020-08-19] MEDS: Ascorbic Acid 500 mg Chewable Tablet PO SCH ×2 (12:12→19:08)
[2020-08-19] MEDS: Senokot S 8.6-50 MG TAB PO SCH ×2 (12:12→19:08)
[2020-08-19] MEDS: Polyethylene Glycol 3350 17 GM Packet PO SCH (12:12)
[2020-08-19] MEDS: Bupropion 150 MG XL TAB PO SCH (12:13)
[2020-08-19] MEDS: Tamsulosin HCl 0.4 MG CAP PO SCH (12:13)
[2020-08-19] MEDS: Cholecalciferol 1,000 UNITS (25 MCG) TAB PO SCH (12:13)
[2020-08-19] MEDS: Furosemide 40 MG TAB PO SCH ×2 (12:14→15:39)
[2020-08-19] MEDS: Megestrol Acetate 800 MG/20 ML UDCUP PO SCH (12:14)
[2020-08-19] MEDS: Allopurinol 100 MG TAB PO SCH (12:14)
[2020-08-19 13:37] VITALS: BMI 21.9
[2020-08-19] MEDS: Aspirin 81 mg Enteric Coated Tablet PO SCH (15:39)
[2020-08-19] MEDS: TICAGRELOR 90 MG TABLET PO SCH ×2 (15:39→19:08)
[2020-08-19] MEDS: Atorvastatin Calcium 40 MG TAB PO SCH (19:08)
[2020-08-19 19:22] VITALS: BP 161/79; TEMP 98
== END 2020-08-19 19:40 | DRG 853 ==
LOC: T4-B 13:43 → 2NO 07-30 20:57 → T4-B 08-10 13:28 → 2NO 08-16 23:55
PROVIDERS: ADMIT Student in an Organized Health Care Education/Training Program; ATTEND Student in an Organized Health Care Education/Training Program
PROC: 0JB70ZZ Excision of Back Subcutaneous Tissue and Fascia, Open Approach (ICD-10-PCS; 2020-07-29)
PROC: 30233N1 Transfusion of Nonautologous Red Blood Cells into Peripheral Vein, Percutaneous Approach (ICD-10-PCS; 2020-07-31)
PROC: 0JB70ZZ Excision of Back Subcutaneous Tissue and Fascia, Open Approach (ICD-10-PCS; 2020-08-02)
PROC: 5A1D70Z Performance of Urinary Filtration, Intermittent, Less than 6 Hours Per Day (ICD-10-PCS; principal; 2020-08-19)
DX: A41.9 Sepsis, unspecified organism (principal); L89.154 Pressure ulcer of sacral region, stage 4; N18.6 End stage renal disease; E43 Unspecified severe protein-calorie malnutrition; J96.91 Respiratory failure, unspecified with hypoxia; I13.2 Hypertensive heart and chronic kidney disease with heart failure and with stage 5 chronic kidney disease, or end stage renal disease; I50.22 Chronic systolic (congestive) heart failure; J81.1 Chronic pulmonary edema; Z20.822 Contact with and (suspected) exposure to COVID-19; E11.22 Type 2 diabetes mellitus with diabetic chronic kidney disease; I25.10 Atherosclerotic heart disease of native coronary artery without angina pectoris; Z53.29 Procedure and treatment not carried out because of patient's decision for other reasons; E78.5 Hyperlipidemia, unspecified; D63.1 Anemia in chronic kidney disease; F32.9 Major depressive disorder, single episode, unspecified; Z96.641 Presence of right artificial hip joint; B96.20 Unspecified Escherichia coli [E. coli] as the cause of diseases classified elsewhere; B95.2 Enterococcus as the cause of diseases classified elsewhere; B96.89 Other specified bacterial agents as the cause of diseases classified elsewhere; R33.9 Retention of urine, unspecified; K59.09 Other constipation; I48.0 Paroxysmal atrial fibrillation; I25.5 Ischemic cardiomyopathy; E78.00 Pure hypercholesterolemia, unspecified; E87.5 Hyperkalemia; E11.649 Type 2 diabetes mellitus with hypoglycemia without coma; E11.51 Type 2 diabetes mellitus with diabetic peripheral angiopathy without gangrene; R40.0 Somnolence; M19.042 Primary osteoarthritis, left hand; M19.041 Primary osteoarthritis, right hand; Z99.2 Dependence on renal dialysis; Z79.01 Long term (current) use of anticoagulants; Z79.82 Long term (current) use of aspirin; Z79.899 Other long term (current) drug therapy; Z90.49 Acquired absence of other specified parts of digestive tract; Z95.5 Presence of coronary angioplasty implant and graft; Z87.891 Personal history of nicotine dependence; Z68.21 Body mass index [BMI] 21.0-21.9, adult
CPT/HCPCS: 36415; 36416; 36430; 71045; 72195; 80048; 80053; 82570; 82805; 83735; 84100; 84134; 84156; 84165; 84166; 84443; 85025; 85027; 85046; 85060; 86850; 86900; 86901; 87040; 87340; 90935; 93005; 93010; 94640; G0257; J1644; J1815; J1940; J2405; J2543; J3010; J3370; J3490; J7050; J7620; P9016; Q0162; Q5105; U0002; U0005